=== PATIENT | female | born 1995 | race Caucasian/White ===

== ENCOUNTER → 2018-04-24 18:36 | Outpatient (CLI) | payer MEDICAID, SELFPAY ==
[2018-04-24 23:02] LABS: Chlamydia Trachomatis by PCR Negative (Negative); Neisserai gonorrhoeae by PCR Negative (Negative); Probe Check PASS; Sample Adequacy Control PASS; Specimen Processing Control PASS
== END ==
PROVIDERS: Family Provider Family Medicine; PCP Family Medicine; Visit Provider Obstetrics & Gynecology
DX: Z11.3 Encounter for screening for infections with a predominantly sexual mode of transmission (principal)
CPT/HCPCS: 87491; 87591

== ENCOUNTER → 2018-04-27 10:56 | Outpatient (CLI) | payer MEDICAID, SELFPAY ==
[2018-04-27 14:51] LABS: Absolute Lymphocyte Count 2.08 X10^3/ul (0.83-4.51); Absolute Neutrophil Count 4.2 X10^3/uL (2.0-7.7); Basophil# 0.02 X10^3/uL; Basophil% 0.3 % (0-1); Eosinophil# 0.12 X10^3/uL; Eosinophils% 1.8 % (0-5); Hematocrit 42.4 % (37-47); Hemoglobin 14.1 g/dl (12.0-15.0); Lymphocyte # 2.08 X10^3/ul (4.0); Lymphocyte % 31.2 % (19-41); Mean Corp Hgb Conc 33.3 g/gl (32-36); Mean Corpuscular Hgb 30.9 pg (27.0-32.0); Mean Corpuscular Volume 92.8 fL (81-99); Mean Platelet Vol. 9.9 fl (6.2-12.0); Monocyte# 0.26 X10^3/uL; Monocyte% 3.9 % (0-10); Neutrophil # 4.19 X10^3/uL (2.7-7.7); Neutrophil % 62.8 % (47-70); Platelet Count 287 K/mm3 (150-450); RBC Distribution Width CV 12.6 % (11.6-14.6); RBC Distribution Width SD 42.4 fl (35.1-43.9); Red Blood Count 4.57 M/mm3 (4.2-5.4); White Blood Count 6.7 K/mm3 (4.4-11.0)
[2018-04-27 14:56] LABS: POSITIVE COUNT NO; POSITIVE DIFFERENTIAL NO; POSITIVE MORPHOLOGY NO
[2018-04-27 15:32] LABS: ALB/GLOB Ratio 1.3 RATIO (0.9-2.4); AST(SGOT) 22 U/L (15-37); Alanine Aminotransfer ALT/SGPT 32 U/L (13-56); Albumin, Serum 4.5 g/dL (3.2-5.0); Alkaline Phosphatase 59 U/L (45-117); Anion Gap 6 (5-15); BUN 9 mg/dL (7-18); BUN/Creat Ratio 12.6 RATIO (10-20); Calcium,Total 9.1 mg/dL (8.5-10.1); Chloride 108 mmol/L (98-107); Creatinine, Serum 0.71 mg/dL (0.55-1.02); EST Glomerular Filtration Rate 110 mL/min (>60); Est Glom Filt Rate - Afr Amer 133 mL/min (>60); Globulin 3.5 g/dL (2.2-4.2); Glucose 69 mg/dL (74-106); Lipase 303 U/L (73-393); Sodium Level 139 mmol/L (136-145); Thyroid Stim Hormone (TSH) 1.12 uIU/mL (0.358-3.74)
== END ==
PROVIDERS: Family Provider Family Medicine; PCP Family Medicine; Visit Provider Family Medicine
DX: R10.13 Epigastric pain (principal)
CPT/HCPCS: 36415; 80053; 83690; 84443; 85025

== ENCOUNTER 2018-05-24 07:16 | Day surgery (SDC) | payer MEDICAID, SELFPAY ==
[2018-05-21 10:55] LABS: Hematocrit 42.4 % (37-47); Mean Corpuscular Hgb 30.3 pg (27.0-32.0); Mean Corpuscular Volume 91.8 fL (81-99); Mean Platelet Vol. 9.6 fl (6.2-12.0); Platelet Count 287 K/mm3 (150-450); RBC Distribution Width CV 12.4 % (11.6-14.6); RBC Distribution Width SD 41.8 fl (35.1-43.9); Red Blood Count 4.62 M/mm3 (4.2-5.4); White Blood Count 5.4 K/mm3 (4.4-11.0)
[2018-05-21 10:57] LABS: Scan Indicated on CBC? Y/N NO
[2018-05-21 11:10] LABS: International Normalized Ratio 1.1; Partial Thromboplast Time 28.5 Seconds (24.1-36.2); Prothrombin Time (Protime)PT. 13.8 SECONDS (11.7-14.9)
--- NOTE | 2018-05-24 | MISC_PTH ---
PATIENT: NASIR WILKERSON [place] [facility] [place][id number] AGE/SX: 22/F ROOM: RE05/24/[address]: Dr. Sinai Marte MD : 1995 BED: DIS: 05/24/2018 SPEC #: [id number] RECD: 05/24/18 14:17 STATUS: MASHA REJovon #: [id number] DIANNE: 05/24/18 00:[address]: Sinai Martinez DEPT: SURGICAL PATHOLOGY RECD BY: Dayron Peck ENTERED: 05/24/18 14:18 SP TYPE: MISC OTHR DR: Dr. Jamaal Duarte MD Tissues: A - Peritoneal cavity, NOS B - Peritoneal cavity, NOS Procedures: Surgery Specimen Level IV HEADER OPERATION: Diagnostic laparoscopy, endometriosis resection PRE-OP DIAGNOSIS: Dysmenorrhea and dyspareunia TISSUE SUBMITTED: A ? Right posterior cul-de-sac peritoneum, B ? Right ovarian fossa peritoneum biopsy MICROSCOPIC DIAGNOSIS A. Peritoneum, right posterior cul-de-sac, biopsy: Fibrofatty tissue with focal mild chronic inflammation. B. Peritoneum, right ovarian fossa, biopsy: Focal changes consistent with endometriosis. AM:panchito 05/25/18 MICROSCOPIC DESCRIPTION Slides are reviewed. GROSS DESCRIPTION A - Received in fixative is one container labeled with the patient's name and designated posterior cul-de-sac peritoneum. The specimen consists of an irregular piece of webb-yellow soft tissue measuring 1.5 x 0.5 x 0.2 cm. The entire specimen is submitted in one cassette. B - Received in fixative is one container labeled with the patient's name and designated right ovarian fossa peritoneum biopsy. The specimen consists of a piece of webb-pink soft tissue measuring 1.5 x 0.5 x 0.1 cm. The entire specimen is submitted in one cassette. / SJ:panchito 05/24/18 TC:5 CPT: 52768 x2
[2018-05-24 07:42] LABS: Internal QC Validated? YES +Cl - CLEAR BKGD; Pregnancy, Urine Negative Negative
[2018-05-24 08:08] VITALS: BP 101/67; PULSE 66; RESP 16; TEMP 37.3; O2SAT 100; BMI 18.5
[2018-05-24] MEDS: Bupivacaine Mpf 0.5% 30 ML VIAL (09:43)
--- NOTE | 2018-05-24 09:46 | PCM.OPRPT ---
Problem List (1) Chronic pelvic pain in female Status: Acute (2) Endometriosis Status: Acute Comment: PELVIC PERITONEUM Report of Operation Date of Procedure: 05/24/18 Pre-Operative Diagnosis: Chronic pelvic pain Post-Operative Diagnosis: Chronic pelvic pain, Endometriosis Surgery/Procedure Performed:: Diagnostic laparoscopy, Endometriosis resection Description of Surgical Findings:: Peritoneal endometriosis of right posterior culdesac and right ovarian fossa/posterior broad ligament pediatric physician: Kathy Celestin Type of Anesthesia:: General, Local Anesthesiologist: Jamaal Alvarado Specimen's removed: 1. right posterior culdesac peritoneum. 2. right ovarian fossa peritoneum Estimated Blood Loss (mL): 5 Fluids Replaced: 1200 ml Description of Procedure: Indications: Lashell is a 22-year-old 1 para 0010 who presents for scheduled diagnostic laparoscopy and peritoneal biopsy is indicated to rule out endometriosis. She has a several year history of pelvic pain that has been refractory to oral contraceptive pills as well as Depo-Provera. She is already had a urologic evaluation. Risks, benefits, indications and alternatives of the procedure were reviewed. The patient desired to proceed. Procedure: The patient was taken to the operating room and signed and was performed. She is placed in the dorsal supine position and induced under general anesthesia and intubated. Her arms were tucked at her sides. She is then placed into dorsal lithotomy and examination under anesthesia performed which was unremarkable. The abdomen and perineum were prepped and draped in sterile fashion. Straight catheterization of the bladder was performed. Timeout was performed. The patient was placed into high lithotomy weighted speculum was placed in the vagina and cervix visualized and grasped using an single-tooth tenaculum at the anterior lip. The uterus sounded to 6 cm and a HUMI uterine manipulator was placed and secured. The tenaculum was removed from the cervix along with the speculum. The patient was placed into low lithotomy attention turned to the abdomen. An inferior umbilical incision was made using a scalpel and the Veress needle was placed however very entry into the abdomen was unsuccessful as they had no successful hanging drop thus I proceeded with laparoscopic injury by the trocar. Abdominal entry pressures were 0 mmHg. The abdomen was insufflated to 12 mmHg. The patient was placed into Trendelenburg. A second incision was made suprapubically and trocar placed. The abdomen and pelvis were inspected demonstrating posterior cul-de-sac peritoneal erosion and ovarian fossae implants concerning for endometriosis. Anatomically the uterus, ovaries and tubes were normal-appearing. The left infundibulopelvic ligament was somewhat vascularly engorged.A third and fourth incisions were made and 5 mm ports were placed under transillumination in the right and left lower quadrants, respectively. The posterior cul-de-sac was drained of fluid to get adequate visualization of the cul-de-sac lesion. The cul-de-sac peritoneum was grasped and sharply dissected using laparoscopic queenie. Monopolar energy was briefly used for final resection of the peritoneum from the more vascular underlying fibroadipose tissue. In similar fashion the ovarian fossae peritoneum was sharply incised, dissected from the underlying tissue and resected. Both resection sites were hemostatic. The procedure was complete. The patient was placed in the dorsal lithotomy and the abdomen desufflated. The skin was closed using 4-0 Monocryl. Steri-Strips and OpSite dressing were placed over the incisions. A total of 10 cc of half percent bupivacaine was injected locally. Attention was turned vaginally and the HUMI uterine manipulator was removed. The patient was awakened, extubated and transferred to the recovery room without complication. Sponge and needle counts were correct ?2. - Complications None - Admit VTE Documentation VTE Present on Admission: No VTE Mechan Device Prophylaxis: SCD's VTE Pharm Prophylaxis ordered?: No
--- NOTE | 2018-05-24 10:05 | PCM.DC ---
- Discharge Diagnoses Current Active Problems: Current Active and Chronic Problems Chronic pelvic pain in female (Acute) Endometriosis (Acute) PELVIC PERITONEUM Reason(s) for Visit for Discharge Instructions: Diagnostic laparoscopy You will use the following diet at home:: No restrictions Your food should be the consistency of: Regular Discharge Activity: Return to Normal Activity, May not drive while taking narcotic pain medications., May Shower, - - No driving for 3-7 days May resume sexual activity in: 4 weeks Lifting Restrictions: 10 lb Call your doctor if your incision/area has: Continuous Slow Oozing, Sudden Increased Bleeding, Increased Pain/ Swelling, Increased Redness Call your doctor if you observe: Fever of 101 or Higher, Inability to urinate, Inability to have a bowel movement, Using more than one pad per hour, Shortness of breath, Chest pain, Calf discomfort, Uncontrolled pain Suture Line Care: Avoid Pulling/Pushing Remove Dressing in (days):: 1 - Remove outer dressing on Monday morning, remove tape strips on Monday Cleanse incision/area with: Soap & Water Instructions: Stages of Endometriosis Allergies/Adverse Reactions: Allergies No Known Allergies Allergy (Verified 05/21/18 12:33) Medications to take at Discharge Ondansetron [Zofran Odt] 4 mg PO Q8H PRN PRN #10 tablet 04/24/17 MedroxyPROGESTERone [Depo-Provera] 150 mg IM .[id number] 05/21/18 Docusate Sodium [Colace] 100 mg PO BID PRN PRN #60 cap 05/24/18 Ibuprofen 600 mg PO TID PRN #30 tab 05/24/18 Oxycodone [Oxyir] 5 mg PO Q4H PRN PRN 3 Days #18 tablet 05/24/18 The following prescriptions were given: Oxycodone [Oxyir] 5 mg PO Q4H PRN PRN 3 Days #18 tablet PRN Reason: Severe Pain (6-10/10) Docusate Sodium [Colace] 100 mg PO BID PRN PRN #60 cap PRN Reason: Constipation Ibuprofen 600 mg PO TID PRN #30 tab PRN Reason: Pain Primary Care Physician: Jamaal Duarte MD [Primary Care Provider] - Test Results: Test results from this visit will be discussed in further detail at your follow-up appointment, if applicable. Please Follow Up With: Sinai Bishop MD When: 2-4 weeks
[2018-05-24 10:09] VITALS: BP 101/67; BP 131/97; PULSE 84; RESP 18; TEMP 36.8; O2SAT 100
[2018-05-24 10:15] VITALS: BP 101/67; BP 108/67; PULSE 67; RESP 18; O2SAT 100
[2018-05-24 10:28] VITALS: BP 101/67; BP 106/67; PULSE 69; RESP 18; TEMP 36.8; O2SAT 99
[2018-05-24] MEDS: HYDROcodone Bitartrate/Apap 5/325 Tablet PO (10:47)
[2018-05-24 10:55] VITALS: BP 101/67
--- NOTE | 2018-05-24 11:09 | PCM.DC ---
- Discharge Diagnoses Current Active Problems: Current Active and Chronic Problems Chronic pelvic pain in female (Acute) Endometriosis (Acute) PELVIC PERITONEUM You will use the following diet at home:: No restrictions Your food should be the consistency of: Regular Discharge Activity: Return to Normal Activity, May not drive while taking narcotic pain medications., May Shower, - - No driving for 3-7 days May resume sexual activity in: 4 weeks Call your doctor if your incision/area has: Continuous Slow Oozing, Sudden Increased Bleeding, Increased Pain/ Swelling, Increased Redness Call your doctor if you observe: Fever of 101 or Higher, Inability to urinate, Inability to have a bowel movement, Using more than one pad per hour, Shortness of breath, Chest pain, Calf discomfort, Uncontrolled pain Suture Line Care: Avoid Pulling/Pushing Remove Dressing in (days):: 1 - Remove outer dressing on Monday morning, remove tape strips on Monday Cleanse incision/area with: Soap & Water Instructions: Stages of Endometriosis Allergies/Adverse Reactions: Allergies No Known Allergies Allergy (Verified 05/21/18 12:33) Medications to take at Discharge Ondansetron [Zofran Odt] 4 mg PO Q8H PRN PRN #10 tablet 04/24/17 MedroxyPROGESTERone [Depo-Provera] 150 mg IM .[id number] 05/21/18 Docusate Sodium [Colace] 100 mg PO BID PRN PRN #60 cap 05/24/18 Ibuprofen 600 mg PO TID PRN #30 tab 05/24/18 Oxycodone [Oxyir] 5 mg PO Q6H PRN PRN 5 Days #18 tablet 05/24/18 The following prescriptions were given: Oxycodone [Oxyir] 5 mg PO Q6H PRN PRN 5 Days #18 tablet PRN Reason: Severe Pain (6-10/10) Docusate Sodium [Colace] 100 mg PO BID PRN PRN #60 cap PRN Reason: Constipation Ibuprofen 600 mg PO TID PRN #30 tab PRN Reason: Pain Primary Care Physician: Jamaal Duarte MD [Primary Care Provider] - Test Results: Test results from this visit will be discussed in further detail at your follow-up appointment, if applicable. Please Follow Up With: Sinai Bishop MD When: 2-4 weeks
--- NOTE | 2018-05-24 11:10 | PCM.PN.BLA ---
Progress Note Call received from Ja pharmacist indicating patient's insurance will only cover Oxycodone 5mg q6h - verbal alteration given - Oxycodone 5mg q6h prn severe pain, #18. Discharge instructions updated.
== END 2018-05-24 11:37 | disposition home or self-care (01) ==
LOC: SDC 07:17 → AC 07:17
PROVIDERS: Anesthesiology; Family Provider Family Medicine; PCP Family Medicine; Visit Provider Obstetrics & Gynecology
PROC: (CPT 49320; principal; 2018-05-24 08:25)
DX: N80.3 Endometriosis of pelvic peritoneum (principal); N94.6 Dysmenorrhea, unspecified; N94.10 Unspecified dyspareunia; R10.2 Pelvic and perineal pain; G89.29 Other chronic pain; K58.9 Irritable bowel syndrome, unspecified; F17.290 Nicotine dependence, other tobacco product, uncomplicated; Z79.899 Other long term (current) drug therapy
CPT/HCPCS: 58662; 36415; 81025; 85027; 85610; 85730; 86850; 86900; 88305; J7120; J2405

== ENCOUNTER → 2018-05-28 12:54 | Outpatient (CLI) | payer MEDICAID, SELFPAY ==
[2018-05-28 13:10] VITALS: BP 102/68; PULSE 74; RESP 18; TEMP 37.3; O2SAT 97; BMI 18.8
[2018-05-28] MEDS: Ceftriaxone 1 GM/50 mL Premix x1 IV (13:19)
[2018-05-28 14:00] VITALS: BP 104/54; PULSE 96; RESP 16; TEMP 37.4; O2SAT 98
== END ==
PROVIDERS: Family Provider Family Medicine; PCP Family Medicine; Visit Provider Obstetrics & Gynecology
DX: N10 Acute pyelonephritis (principal)
CPT/HCPCS: 96365; 80048; 81001; 85025; 87086; J7050; A4216

== ENCOUNTER → 2018-05-28 13:41 | Outpatient (CLI) | payer MEDICAID, SELFPAY ==
[2018-05-28 13:45] LABS: Bacteria 0 SEEN /hpf (None Seen); Mucous, Urine 0 SEEN /hpf (<or=2+); Red Blood Cells-Urine 0 SEEN /hpf (0-5)
[2018-05-28 13:49] LABS: Color, Urine Straw (Yellow); Glucose, Dipstick Normal (Normal); Ketone-Dipstick Negative (Negative); Leukocyte Esterase-Dipstick 100 /ul (Negative); Nitrite-Dipstick Negative (Negative); Occult Blood-Urine 10 /ul (Negative); Protein-Dipstick Negative (Negative); Specific Gravity, Urine 1.005 (1.002-1.030); Urine Bilirubin Dipstick Negative (Negative); Urine Clarity Clear (Clear); Urine Urobilinogen Normal (Normal)
[2018-05-28 13:54] LABS: Absolute Lymphocyte Count 1.93 X10^3/ul (0.83-4.51); Absolute Neutrophil Count 4.8 X10^3/uL (2.0-7.7); Basophil# 0.02 X10^3/uL; Basophil% 0.3 % (0-1); Eosinophil# 0.16 X10^3/uL; Eosinophils% 2.2 % (0-5); Hematocrit 45.6 % (37-47); Hemoglobin 15.7 g/dl (12.0-15.0); Lymphocyte # 1.93 X10^3/ul (4.0); Lymphocyte % 26.4 % (19-41); Mean Corp Hgb Conc 34.4 g/gl (32-36); Mean Corpuscular Hgb 31.2 pg (27.0-32.0); Mean Corpuscular Volume 90.7 fL (81-99); Mean Platelet Vol. 9.6 fl (6.2-12.0); Monocyte# 0.38 X10^3/uL; Monocyte% 5.2 % (0-10); Neutrophil # 4.81 X10^3/uL (2.7-7.7); Neutrophil % 65.8 % (47-70); Platelet Count 331 K/mm3 (150-450); RBC Distribution Width CV 12.1 % (11.6-14.6); RBC Distribution Width SD 39.7 fl (35.1-43.9); Red Blood Count 5.03 M/mm3 (4.2-5.4); White Blood Count 7.3 K/mm3 (4.4-11.0)
[2018-05-28 13:55] LABS: POSITIVE COUNT NO; POSITIVE DIFFERENTIAL NO; POSITIVE MORPHOLOGY NO
[2018-05-28 13:58] LABS: Squamous Epithelial Cells - UA 0-5 SEEN /hpf (5-10); White Blood Cells 0-5 SEEN /hpf (0-5)
[2018-05-28 13:59] LABS: Anion Gap 9 (5-15); BUN 12 mg/dL (7-18); BUN/Creat Ratio 18.2 RATIO (10-20); Calcium,Total 9.9 mg/dL (8.5-10.1); Chloride 105 mmol/L (98-107); Creatinine, Serum 0.66 mg/dL (0.55-1.02); EST Glomerular Filtration Rate 120 mL/min (>60); Est Glom Filt Rate - Afr Amer 145 mL/min (>60); Glucose 77 mg/dL (74-106); Potassium 4.7 mmol/L (3.5-5.1); Sodium Level 141 mmol/L (136-145)
== END ==
PROVIDERS: Visit Provider Obstetrics & Gynecology
DX: N39.0 Urinary tract infection, site not specified (principal)
CPT/HCPCS: 80048; 81001; 85025; 87086; 87088

== ENCOUNTER → 2018-08-21 08:33 | Outpatient (CLI) | payer MEDICAID, SELFPAY ==
[2018-08-21 10:51] LABS: Absolute Lymphocyte Count 2.05 X10^3/ul (0.83-4.51); Absolute Neutrophil Count 2.5 X10^3/uL (2.0-7.7); Basophil# 0.03 X10^3/uL; Basophil% 0.6 % (0-1); Eosinophil# 0.14 X10^3/uL; Eosinophils% 2.8 % (0-5); Hematocrit 42.2 % (37-47); Hemoglobin 13.9 g/dl (12.0-15.0); Lymphocyte # 2.05 X10^3/ul (4.0); Lymphocyte % 40.8 % (19-41); Mean Corp Hgb Conc 32.9 g/gl (32-36); Mean Corpuscular Hgb 30.9 pg (27.0-32.0); Mean Corpuscular Volume 93.8 fL (81-99); Mean Platelet Vol. 10.1 fl (6.2-12.0); Monocyte# 0.29 X10^3/uL; Monocyte% 5.8 % (0-10); Neutrophil # 2.51 X10^3/uL (2.7-7.7); Platelet Count 249 K/mm3 (150-450); RBC Distribution Width CV 12.5 % (11.6-14.6); RBC Distribution Width SD 42.7 fl (35.1-43.9)
[2018-08-21 10:53] LABS: POSITIVE COUNT NO; POSITIVE DIFFERENTIAL NO; POSITIVE MORPHOLOGY NO
[2018-08-21 11:33] LABS: ALB/GLOB Ratio 1.5 RATIO (0.9-2.4); AST(SGOT) 13 U/L (15-37); Alanine Aminotransfer ALT/SGPT 22 U/L (13-56); Albumin, Serum 4.5 g/dL (3.2-5.0); Alkaline Phosphatase 65 U/L (45-117); Anion Gap 8 (5-15); BUN 10 mg/dL (7-18); BUN/Creat Ratio 14.9 RATIO (10-20); Chloride 108 mmol/L (98-107); Creatinine, Serum 0.67 mg/dL (0.55-1.02); EST Glomerular Filtration Rate 118 mL/min (>60); Est Glom Filt Rate - Afr Amer 143 mL/min (>60); Ferritin 45 ng/mL (8-252); Glucose 74 mg/dL (74-106); Lipase 272 U/L (73-393); Magnesium 2.1 mg/dL (1.6-2.6); Potassium 4.1 mmol/L (3.5-5.1); Protein, Total 7.5 g/dL (6.4-8.2); Sodium Level 140 mmol/L (136-145); Thyroid Stim Hormone (TSH) 1.19 uIU/mL (0.358-3.74)
== END ==
PROVIDERS: Family Provider Family Medicine; PCP Family Medicine; Visit Provider Family Medicine
DX: N94.6 Dysmenorrhea, unspecified (principal); K58.9 Irritable bowel syndrome, unspecified; R00.2 Palpitations
CPT/HCPCS: 36415; 80053; 82728; 83690; 83735; 84443; 85025

== ENCOUNTER → 2018-11-27 15:39 | Outpatient (CLI) | payer MEDICAID, SELFPAY ==
[2018-05-28 13:10] VITALS: BMI 18.8
[2018-11-27 15:42] LABS: Bacteria 0 SEEN /hpf (None Seen); Mucous, Urine 0 SEEN /hpf (<or=2+); Red Blood Cells-Urine 0 SEEN /hpf (0-5); White Blood Cells 0 SEEN /hpf (0-5)
[2018-11-27 17:34] LABS: Color, Urine Yellow (Yellow); Glucose, Dipstick Normal (Normal); Ketone-Dipstick Negative (Negative); Leukocyte Esterase-Dipstick Negative /ul (Negative); Nitrite-Dipstick Negative (Negative); Occult Blood-Urine Negative /ul (Negative); Protein-Dipstick Negative (Negative); Urine Bilirubin Dipstick Negative (Negative); Urine Clarity Clear (Clear); Urine Urobilinogen Normal (Normal)
[2018-11-27 17:48] LABS: Squamous Epithelial Cells - UA 0-5 SEEN /hpf (5-10)
== END ==
PROVIDERS: Visit Provider Obstetrics & Gynecology
DX: N39.0 Urinary tract infection, site not specified (principal)
CPT/HCPCS: 81001

== ENCOUNTER → 2019-04-23 12:42 | Outpatient (CLI) | payer MEDICAID, SELFPAY ==
[2018-05-28 13:10] VITALS: BMI 18.8
--- NOTE | 2019-04-23 12:48 | RAD_ITS ---
STUDY: X-RAY - LUMBAR SPINE REASON FOR EXAM: Female, 23 years old. Low back pain TECHNIQUE: 5 view(s) of the lumbar spine were obtained. COMPARISON: None FINDINGS: Normal lumbar lordosis. There is no substantial scoliosis. There is a normal alignment of the vertebrae. Normal vertebral bodies and endplates. Normal disc space heights. The soft tissue structures are unremarkable. RAD/L/S Spine Min 4 Views IMPRESSION: Normal x-ray examination of the lumbar spine. Electronically Signed: Matt Ngo MD at 14:06 EDT , Service support ,
[2019-04-23 14:07] LABS: Absolute Lymphocyte Count 2.38 X10^3/uL (0.83-4.51); Absolute Neutrophil Count 3.6 X10^3/uL (2.0-7.7); Basophil# 0.05 X10^3/uL; Basophil% 0.8 % (0-1); Eosinophil# 0.12 X10^3/uL; Eosinophils% 1.8 % (0-5); Hematocrit 38.5 % (37-47); Hemoglobin 13.1 g/dL (12.0-15.0); Lymphocyte # 2.38 X10^3/ul (4.0); Lymphocyte % 36.5 % (19-41); Mean Corpuscular Hgb 31.6 pg (27.0-32.0); Mean Corpuscular Volume 92.8 fL (81-99); Mean Platelet Vol. 9.7 fl (6.2-12.0); Monocyte# 0.38 X10^3/uL; Monocyte% 5.8 % (0-10); NRBC Flagged by Analyzer 0 % (0-5); Neutrophil # 3.57 X10^3/uL (2.7-7.7); Neutrophil % 54.8 % (47-70); Platelet Count 270 K/mm3 (150-450); RBC Distribution Width CV 11.9 % (11.6-14.6); RBC Distribution Width SD 41.1 fl (35.1-43.9); Red Blood Count 4.15 M/mm3 (4.2-5.4); White Blood Count 6.5 K/mm3 (4.4-11.0)
[2019-04-23 14:23] LABS: CRP < 2.90 mg/L (0.0-3.0)
[2019-04-26 03:06] LABS: QNTFERON TB Mitogen Value > 10.00 IU/mL (.); QNTFERON TB Nil Value 0.03 IU/mL (.); QNTFERON TB1+ Ag Value 0.02 IU/mL (.); QNTFERON TB2+ Ag Value 0.03 IU/mL (.)
[2019-04-26 11:22] LABS: QNTIFERON TB Positive Criteria Negative (Negative)
== END ==
PROVIDERS: Family Provider Family Medicine; PCP Family Medicine; Referring Provider Family Medicine; Visit Provider Family Medicine
DX: M54.9 Dorsalgia, unspecified (principal); R61 Generalized hyperhidrosis
CPT/HCPCS: 36415; 72110; 85025; 86140; 86480

== ENCOUNTER → 2019-06-07 11:39 | Outpatient (CLI) | payer MEDICAID, SELFPAY ==
[2018-05-28 13:10] VITALS: BMI 18.8
[2019-06-07 14:10] LABS: Absolute Neutrophil Count 3.3 X10^3/uL (2.0-7.7); Basophil# 0.03 X10^3/uL; Basophil% 0.5 % (0-1); Eosinophil# 0.06 X10^3/uL; Eosinophils% 1.1 % (0-5); Hematocrit 40.6 % (37-47); Hemoglobin 13.3 g/dL (12.0-15.0); Mean Corp Hgb Conc 32.8 g/dL (32-36); Mean Corpuscular Hgb 30.5 pg (27.0-32.0); Mean Corpuscular Volume 93.1 fL (81-99); Mean Platelet Vol. 9.8 fl (6.2-12.0); Monocyte% 5.3 % (0-10); NRBC Flagged by Analyzer 0 % (0-5); Neutrophil # 3.31 X10^3/uL (2.7-7.7); Neutrophil % 57.9 % (47-70); Platelet Count 287 K/mm3 (150-450); RBC Distribution Width CV 12.1 % (11.6-14.6); RBC Distribution Width SD 41.6 fl (35.1-43.9); Red Blood Count 4.36 M/mm3 (4.2-5.4); White Blood Count 5.7 K/mm3 (4.4-11.0)
[2019-06-07 14:16] LABS: Erythrocyte Sedimentation Rate < 1 mm/hr (0-20)
[2019-06-07 14:53] LABS: ALB/GLOB Ratio 1.4 RATIO (0.9-2.4); AST(SGOT) 15 U/L (15-37); Alanine Aminotransfer ALT/SGPT 24 U/L (13-56); Albumin, Serum 4.4 g/dL (3.2-5.0); Alkaline Phosphatase 61 U/L (45-117); Anion Gap 8 (5-15); BUN 10 mg/dL (7-18); CRP < 2.90 mg/L (0.0-3.0); Calcium,Total 8.9 mg/dL (8.5-10.1); Chloride 112 mmol/L (98-107); Creatinine, Serum 0.83 mg/dL (0.55-1.02); EST Glomerular Filtration Rate 91 mL/min (>60); Est Glom Filt Rate - Afr Amer 110 mL/min (>60); Globulin 3.2 g/dL (2.2-4.2); Glucose 68 mg/dL (74-106); Lipase 335 U/L (73-393); Potassium 3.7 mmol/L (3.5-5.1); Protein, Total 7.6 g/dL (6.4-8.2); Sodium Level 146 mmol/L (136-145)
== END ==
PROVIDERS: Family Provider Family Medicine; PCP Family Medicine; Visit Provider Family Medicine
DX: R10.84 Generalized abdominal pain (principal); N32.89 Other specified disorders of bladder
CPT/HCPCS: 36415; 80053; 83690; 85025; 85652; 86140; 87086

== ENCOUNTER 2019-07-09 09:19 | Day surgery (SDC) | payer MEDICAID, SELFPAY ==
[2019-07-09 09:43] LABS: Internal QC Validated? YES +Cl - CLEAR BKGD
[2019-07-09 09:47] VITALS: BP 114/76; PULSE 70; RESP 16; TEMP 36.1; O2SAT 100; BMI 19.0
[2019-07-09 09:47] LABS: Pregnancy, Urine Negative Negative
[2019-07-09] MEDS: Lactated Ringers 1,000 ML 100 ML IV (10:10)
[2019-07-09] MEDS: Cefazolin 2 GM in 0.9% Normal Saline 100 ML IV (10:35)
--- NOTE | 2019-07-09 10:39 | DCINST_ITS ---
Discharge Diet: No Restrictions Discharge Activity: May not drive while taking narcotic pain medications., May Shower May resume sexual activity in: 2 weeks Call your doctor if you observe: Fever of 101 or Higher, Inability to urinate, Inability to have a bowel movement, Shortness of breath, Chest pain, Calf discomfort, Uncontrolled pain Allergies/Adverse Reactions: Allergies No Known Allergies Allergy (Verified 07/09/19 09:46) Medications to take at Discharge MedroxyPROGESTERone [Depo-Provera] 150 mg IM .[id number] 05/21/18 Primary Care Physician: Jamaal Duarte MD [Primary Care Provider] - Test Results: Test results from this visit will be discussed in further detail at your follow- up appointment, if applicable. Please Follow Up With: Lorenza Kirby MD When: call office for appt in 2-3 weeks Proposed Discharge Date: 07/09/19
--- NOTE | 2019-07-09 10:40 | OP.PCM_ITS ---
Problem List (1) Urinary urgency Status: Acute (2) Urinary frequency Status: Acute (3) Urinary incontinence, urge Status: Acute (4) Interstitial cystitis Status: Chronic (5) Chronic pelvic pain in female Status: Acute Report of Operation Date of Procedure: 07/09/19 Pre-Operative Diagnosis: Chronic pelvic pain, interstitial cystitis, urinary urgency, urinary frequency, urinary urge incontinence Post-Operative Diagnosis: Same Surgery/Procedure Performed:: Cystoscopy, hydrodistention, pelvic exam under anesthesia Description of Surgical Findings:: Capacity 350 cc, positive for glomerulations and terminal hematuria following distention. No ulcerations. Type of Anesthesia:: General Description of Procedure: The patient is a 23-year-old female with a story concerning for interstitial cystitis who presents today for cystoscopy under anesthesia for diagnostic and therapeutic purposes. All risk benefits and alternatives were discussed and informed consent was obtained. Patient was taken to the operating room and placed on the operating room table. Anesthesia monitored the head, neck, airway, IV access and vital signs throughout the case. Once anesthesia is a probably administered the patient was placed into dorsal lithotomy position was prepped and draped in usual sterile fashion. A cystourethroscopy and pelvic examination were performed. There is n o pelvic abnormality identified aside from some tight levator musculature bilaterally. On cystoscopy, the anatomy is normal with bilateral ureteral orifices in correct anatomic position on the area of the trigone. There are no ulcerations or bladder masses identified. The bladder was filled to capacity and allowed to sit for 2 minutes. Capacity was determined by the patient leaking around the cystoscope. This was measured to be 350 cc. Upon reentry into the urinary bladder there were multiple glomerulations and bleeding from the bladder lining. The bladder was once again filled to capacity and allowed to sit for 2 minutes. The bladder was then emptied and the case was terminated. The capacity was measured at 375 cc. There were no complications during the procedure. She was awakened and taken to the recovery room in good condition. Grafts/Implants Used: none - Complications none - Admit VTE Documentation VTE Present on Admission: Yes VTE Mechan Device Prophylaxis: SCD's VTE Pharm Prophylaxis ordered?: No Reason prophylaxis not ordered:: Treatment Not Indicated
[2019-07-09 11:20] VITALS: BP 114/69; BP 114/76; PULSE 75; RESP 16; TEMP 36.4; O2SAT 100
[2019-07-09 11:30] VITALS: BP 112/73; BP 114/76; PULSE 80; RESP 16; O2SAT 99
[2019-07-09 11:40] VITALS: BP 114/71; BP 114/76; PULSE 63; RESP 16; O2SAT 100
[2019-07-09 11:48] VITALS: BP 112/70; BP 114/76; PULSE 64; RESP 16; TEMP 36.7; O2SAT 100
[2019-07-09 12:14] VITALS: BP 114/76; BP 115/78; PULSE 63; RESP 18; TEMP 36.7; O2SAT 100
== END 2019-07-09 12:23 | disposition home or self-care (01) ==
LOC: SDC 09:20 → AC 09:21
PROVIDERS: Anesthesiology; Family Provider Family Medicine; PCP Family Medicine; Referring Provider Urology; Visit Provider Urology
PROC: 0T7B7ZZ Dilation of Bladder, Via Natural or Artificial Opening (ICD-10-PCS; CPT 52260; principal; 2019-07-09 10:50)
DX: N30.10 Interstitial cystitis (chronic) without hematuria (principal); N39.41 Urge incontinence; R35.1 Nocturia; R35.0 Frequency of micturition; N94.19 Other specified dyspareunia; R10.2 Pelvic and perineal pain; G89.29 Other chronic pain; K58.9 Irritable bowel syndrome, unspecified; F17.200 Nicotine dependence, unspecified, uncomplicated; Z79.899 Other long term (current) drug therapy
CPT/HCPCS: 52260; 81025; J7120; J2405

== ENCOUNTER → 2020-04-21 | Outpatient (CLI) | payer MEDICAID, SELFPAY ==
[2020-04-21 17:29] LABS: Bacteria 0 SEEN /hpf (None Seen); Mucous, Urine 0 SEEN /hpf (<or=2+); Red Blood Cells-Urine 0 SEEN /hpf (0-5); White Blood Cells 0 SEEN /hpf (0-5)
[2020-04-21 17:41] LABS: Color, Urine Straw (Yellow); Glucose, Dipstick Normal (Normal); Ketone-Dipstick Negative (Negative); Leukocyte Esterase-Dipstick Negative /ul (Negative); Nitrite-Dipstick Negative (Negative); Occult Blood-Urine Negative /ul (Negative); Protein-Dipstick Negative (Negative); Urine Bilirubin Dipstick Negative (Negative); Urine Clarity Clear (Clear); Urine Urobilinogen Normal (Normal)
[2020-04-21 17:51] LABS: Squamous Epithelial Cells - UA 0-5 SEEN /hpf (5-10)
== END | disposition home or self-care (01) ==
PROVIDERS: PCP Family Medicine; Referring Provider Family Medicine; Visit Provider Family Medicine
DX: N39.0 Urinary tract infection, site not specified (principal)
CPT/HCPCS: 81001; 87086

== ENCOUNTER → 2020-05-13 13:26 | Outpatient (CLI) | payer MEDICAID, SELFPAY | PROVIDERS: PCP Family Medicine; Visit Provider Obstetrics & Gynecology | DX: Z12.4 Encounter for screening for malignant neoplasm of cervix (principal); Z11.3 Encounter for screening for infections with a predominantly sexual mode of transmission ==

== ENCOUNTER → 2020-05-19 13:39 | Outpatient (CLI) | payer MEDICAID, SELFPAY ==
[2020-05-19 15:23] LABS: Absolute Lymphocyte Count 2.47 X10^3/uL (0.83-4.51); Absolute Neutrophil Count 4.4 X10^3/uL (2.0-7.7); Basophil# 0.04 X10^3/uL; Basophil% 0.5 % (0-1); Eosinophil# 0.09 X10^3/uL; Eosinophils% 1.2 % (0-5); Hematocrit 42.1 % (37-47); Hemoglobin 13.9 g/dL (12.0-15.0); Lymphocyte # 2.47 X10^3/ul (4.0); Lymphocyte % 33.4 % (19-41); Mean Corpuscular Hgb 31.3 pg (27.0-32.0); Mean Corpuscular Volume 94.8 fL (81-99); Mean Platelet Vol. 9.4 fl (6.2-12.0); Monocyte% 5.4 % (0-10); NRBC Flagged by Analyzer 0 % (0-5); Neutrophil # 4.37 X10^3/uL (2.7-7.7); Neutrophil % 59.1 % (47-70); Platelet Count 316 K/mm3 (150-450); RBC Distribution Width CV 12.1 % (11.6-14.6); RBC Distribution Width SD 42.2 fl (35.1-43.9); Red Blood Count 4.44 M/mm3 (4.2-5.4); White Blood Count 7.4 K/mm3 (4.4-11.0)
[2020-05-19 16:45] LABS: ALB/GLOB Ratio 1.4 RATIO (0.9-2.4); AST(SGOT) 25 U/L (15-37); Alanine Aminotransfer ALT/SGPT 33 U/L (13-56); Albumin, Serum 4.5 g/dL (3.2-5.0); Alkaline Phosphatase 53 U/L (45-117); Anion Gap 6 (5-15); BUN 10 mg/dL (7-18); BUN/Creat Ratio 15.5 RATIO (10-20); Calcium,Total 9.2 mg/dL (8.5-10.1); Chloride 105 mmol/L (98-107); Creatinine, Serum 0.64 mg/dL (0.55-1.02); EST Glomerular Filtration Rate 121 mL/min (>60); Est Glom Filt Rate - Afr Amer 147 mL/min (>60); Globulin 3.3 g/dL (2.2-4.2); Glucose 59 mg/dL (74-106); Magnesium 2.4 mg/dL (1.6-2.6); Potassium 3.9 mmol/L (3.5-5.1); Protein, Total 7.8 g/dL (6.4-8.2); Sodium Level 138 mmol/L (136-145); Thyroid Stim Hormone (TSH) 1.66 uIU/mL (0.358-3.74)
== END ==
PROVIDERS: PCP Family Medicine; Referring Provider Family Medicine; Visit Provider Family Medicine
DX: R00.2 Palpitations (principal)
CPT/HCPCS: 36415; 80053; 83735; 84443; 85025

== ENCOUNTER → 2020-06-12 11:39 | Outpatient (CLI) | payer MEDICAID, SELFPAY ==
[2020-06-12 15:14] LABS: Absolute Lymphocyte Count 2.09 X10^3/uL (0.83-4.51); Absolute Neutrophil Count 3.7 X10^3/uL (2.0-7.7); Basophil# 0.04 X10^3/uL; Basophil% 0.6 % (0-1); Eosinophil# 0.08 X10^3/uL; Eosinophils% 1.3 % (0-5); Hematocrit 42.9 % (37-47); Lymphocyte # 2.09 X10^3/ul (4.0); Lymphocyte % 33.2 % (19-41); Mean Corp Hgb Conc 32.6 g/dL (32-36); Mean Corpuscular Hgb 31.5 pg (27.0-32.0); Mean Corpuscular Volume 96.6 fL (81-99); Mean Platelet Vol. 9.6 fl (6.2-12.0); Monocyte# 0.34 X10^3/uL; Monocyte% 5.4 % (0-10); NRBC Flagged by Analyzer 0 % (0-5); Neutrophil # 3.72 X10^3/uL (2.7-7.7); Neutrophil % 59.2 % (47-70); Platelet Count 330 K/mm3 (150-450); RBC Distribution Width CV 12.3 % (11.6-14.6); RBC Distribution Width SD 43.5 fl (35.1-43.9); Red Blood Count 4.44 M/mm3 (4.2-5.4); White Blood Count 6.3 K/mm3 (4.4-11.0)
[2020-06-12 15:35] LABS: Vitamin B12 658 pg/mL (211-911); Vitamin D,25 Hydroxy 41.8 ng/mL
[2020-06-12 16:07] LABS: CRP < 2.90 mg/L (0.0-3.0); Ferritin 49 ng/mL (8-252); Iron 145 ug/dL (50-170); Iron Binding Capacity,Total 412 ug/dL (250-450); Magnesium 2.5 mg/dL (1.6-2.6); T4 Free Direct 1.27 ng/dL (0.76-1.46); Thyroid Stim Hormone (TSH) 1.29 uIU/mL (0.358-3.74)
[2020-06-12 18:30] LABS: PTHIN 15.2 pg/mL (18.4-80.1)
[2020-06-15 16:24] LABS: ANTINUCLEAR ANTIBODIES DIRECT Negative (Negative)
[2020-06-17 04:07] LABS: Endomysial Antibody IgA Negative (Negative); Immunoglobulin A 104 mg/dL (87-352); PROEL- A/G Ratio 1.3 (0.7-1.7); PROEL- Albumin 4.2 g/dL (2.9-4.4); PROEL- Alpha-1 Globulin 0.2 g/dL (0.0-0.4); PROEL- Alpha-2 Globulin 0.9 g/dL (0.4-1.0); PROEL- Beta Globulin 0.9 g/dL (0.7-1.3); PROEL- Gamma Globulin 1.1 g/dL (0.4-1.8); PROEL- Globulin, Total 3.2 g/dL (2.2-3.9); PROEL- TOTAL PROTEIN 7.4 g/dL (6.0-8.5)
[2020-06-17 05:35] LABS: Deamidated Gliadin IgA 3 units (0-19); Deamidated Gliadin IgG 3 units (0-19); Immunoglobulin E 68 IU/mL (6-495); t-Transglutaminase IgA 4 U/mL (0-3)
[2020-06-18 04:32] LABS: Rapid Plasmin Reagin (RPR) NONREACTIVE (NONREACTIVE)
== END ==
PROVIDERS: PCP Family Medicine; Referring Provider Family Medicine; Visit Provider Family Medicine
DX: R20.2 Paresthesia of skin (principal); R19.7 Diarrhea, unspecified; M25.50 Pain in unspecified joint; L29.9 Pruritus, unspecified
CPT/HCPCS: 36415; 82306; 82607; 82728; 82746; 82784; 82785; 83516; 83540; 83550; 83735; 83970; 84165; 84439; 84443; 85025; 86038; 86140; 86255; 86592

== ENCOUNTER → 2020-09-28 16:10 | Outpatient (CLI) | payer MEDICAID, SELFPAY ==
[2020-09-28 17:41] LABS: Absolute Lymphocyte Count 2.72 X10^3/uL (0.83-4.51); Absolute Neutrophil Count 3.3 X10^3/uL (2.0-7.7); Basophil# 0.02 X10^3/uL; Basophil% 0.3 % (0-1); Eosinophil# 0.06 X10^3/uL; Eosinophils% 0.9 % (0-5); Hematocrit 39.6 % (37-47); Hemoglobin 12.9 g/dL (12.0-15.0); Lymphocyte # 2.72 X10^3/ul (4.0); Lymphocyte % 42.2 % (19-41); Mean Corp Hgb Conc 32.6 g/dL (32-36); Mean Corpuscular Hgb 30.6 pg (27.0-32.0); Mean Corpuscular Volume 94.1 fL (81-99); Mean Platelet Vol. 9.8 fl (6.2-12.0); Monocyte# 0.36 X10^3/uL; Monocyte% 5.6 % (0-10); NRBC Flagged by Analyzer 0 % (0-5); Neutrophil # 3.26 X10^3/uL (2.7-7.7); Neutrophil % 50.7 % (47-70); Platelet Count 325 K/mm3 (150-450); RBC Distribution Width CV 12.3 % (11.6-14.6); Red Blood Count 4.21 M/mm3 (4.2-5.4); White Blood Count 6.4 K/mm3 (4.4-11.0)
[2020-09-28 18:08] LABS: ALB/GLOB Ratio 1.3 RATIO (0.9-2.4); AST(SGOT) 18 U/L (15-37); Alanine Aminotransfer ALT/SGPT 27 U/L (13-56); Albumin, Serum 4.4 g/dL (3.2-5.0); Alkaline Phosphatase 61 U/L (45-117); Anion Gap 6 (5-15); BUN 6 mg/dL (7-18); BUN/Creat Ratio 7.9 RATIO (10-20); Calcium,Total 9.1 mg/dL (8.5-10.1); Chloride 107 mmol/L (98-107); Creatinine, Serum 0.76 mg/dL (0.55-1.02); EST Glomerular Filtration Rate 101 mL/min (>60); Est Glom Filt Rate - Afr Amer 122 mL/min (>60); Globulin 3.3 g/dL (2.2-4.2); Glucose 103 mg/dL (74-106); Lipase 306 U/L (73-393); Potassium 3.5 mmol/L (3.5-5.1); Protein, Total 7.7 g/dL (6.4-8.2); Sodium Level 140 mmol/L (136-145)
[2020-09-30 20:08] LABS: Endomysial Antibody IgA Negative (Negative); Immunoglobulin A 100 mg/dL (87-352)
[2020-09-30 21:11] LABS: HSV 1 IgG < 0.91 index (0.00-0.90); HSV 2 IgG < 0.91 index (0.00-0.90); t-Transglutaminase IgA <2 U/mL (0-3)
== END ==
PROVIDERS: PCP Family Medicine; Visit Provider Family Medicine
DX: L73.9 Follicular disorder, unspecified (principal); R76.8 Other specified abnormal immunological findings in serum; R10.13 Epigastric pain
CPT/HCPCS: 36415; 80053; 82784; 83516; 83690; 85025; 86255; 86695; 86696

== ENCOUNTER → 2020-10-16 | Outpatient (CLI) | payer MEDICAID, SELFPAY | END | disposition home or self-care (01) | LOC: LABSPEC 15:07 | PROVIDERS: PCP Family Medicine; Referring Provider Family Medicine; Visit Provider Family Medicine | DX: L73.9 Follicular disorder, unspecified (principal) | CPT/HCPCS: 87070; 87077; 87205 ==

== ENCOUNTER → 2020-11-24 11:34 | Outpatient (CLI) | payer MEDICAID, SELFPAY ==
[2020-11-24 15:26] LABS: Erythrocyte Sedimentation Rate 2 mm/hr (0-30)
[2020-11-24 16:32] LABS: CRP < 2.90 mg/L (0.0-3.0); Lipase 229 U/L (73-393); Thyroid Stim Hormone (TSH) 1.85 uIU/mL (0.358-3.74)
[2020-11-26 15:45] LABS: ANTINUCLEAR ANTIBODIES DIRECT Negative (Negative)
[2020-11-29 03:06] LABS: QNTFERON TB Mitogen Value > 10.00 IU/mL (.); QNTFERON TB Nil Value 0.08 IU/mL (.); QNTFERON TB2+ Ag Value 0.14 IU/mL (.)
[2020-11-29 07:59] LABS: Complement CH50 > 60 U/mL (>41); QNTIFERON TB Positive Criteria Negative (Negative)
== END ==
PROVIDERS: PCP Family Medicine; Referring Provider Family Medicine; Visit Provider Family Medicine
DX: R61 Generalized hyperhidrosis (principal); R10.13 Epigastric pain
CPT/HCPCS: 36415; 83690; 84443; 85652; 86038; 86140; 86162; 86480

== ENCOUNTER → 2021-02-01 14:51 | Outpatient (CLI) | payer MEDICAID, SELFPAY ==
[2021-02-01 17:34] LABS: Absolute Lymphocyte Count 2.94 X10^3/uL (0.83-4.51); Absolute Neutrophil Count 4.8 X10^3/uL (2.0-7.7); Basophil# 0.04 X10^3/uL; Basophil% 0.5 % (0-1); Eosinophil# 0.12 X10^3/uL; Eosinophils% 1.4 % (0-5); Hematocrit 40.7 % (37-47); Lymphocyte # 2.94 X10^3/ul (0.83-4.51); Lymphocyte % 35.5 % (19-41); Mean Corp Hgb Conc 31.9 g/dL (32-36); Mean Corpuscular Volume 93.8 fL (81-99); Mean Platelet Vol. 9.5 fl (6.2-12.0); Monocyte# 0.41 X10^3/uL; NRBC Flagged by Analyzer 0 % (0-5); Neutrophil # 4.76 X10^3/uL (2.7-7.7); Neutrophil % 57.5 % (47-70); Platelet Count 323 K/mm3 (150-450); RBC Distribution Width CV 12.7 % (11.6-14.6); RBC Distribution Width SD 43.9 fl (35.1-43.9); Red Blood Count 4.34 M/mm3 (4.2-5.4); White Blood Count 8.3 K/mm3 (4.4-11.0)
[2021-02-01 18:04] LABS: ALB/GLOB Ratio 1.2 RATIO (0.9-2.4); AST(SGOT) 23 U/L (15-37); Alanine Aminotransfer ALT/SGPT 24 U/L (13-56); Albumin, Serum 4.1 g/dL (3.2-5.0); Alkaline Phosphatase 63 U/L (45-117); Amylase 101 U/L (25-115); Anion Gap 9 (5-15); BUN 15 mg/dL (7-18); BUN/Creat Ratio 20.1 RATIO (10-20); CRP < 2.90 mg/L (0.0-3.0); Calcium,Total 9.1 mg/dL (8.5-10.1); Chloride 107 mmol/L (98-107); Creatinine, Serum 0.75 mg/dL (0.55-1.02); EST Glomerular Filtration Rate 102 mL/min (>60); Est Glom Filt Rate - Afr Amer 123 mL/min (>60); GGTP 23 U/L (5-55); Globulin 3.3 g/dL (2.2-4.2); Glucose 84 mg/dL (74-106); Lipase 382 U/L (73-393); Potassium 3.6 mmol/L (3.5-5.1); Protein, Total 7.4 g/dL (6.4-8.2); Sodium Level 139 mmol/L (136-145)
== END ==
PROVIDERS: PCP Family Medicine; Visit Provider Family Medicine
DX: R10.13 Epigastric pain (principal)
CPT/HCPCS: 36415; 80053; 82150; 82977; 83690; 85025; 86140

== ENCOUNTER → 2021-03-24 | Outpatient (CLI) | payer MEDICAID, SELFPAY | END | disposition home or self-care (01) | LOC: MFPLAB 08:04 → LABSPEC 08:09 | PROVIDERS: PCP Family Medicine; Referring Provider Family Medicine; Visit Provider Family Medicine | DX: R10.9 Unspecified abdominal pain (principal) | CPT/HCPCS: 87077; 87086; 87088; 87186 ==

== ENCOUNTER → 2021-03-25 12:17 | Outpatient (CLI) | payer MEDICAID, SELFPAY ==
--- NOTE | 2021-03-25 12:20 | CT_ITS ---
STUDY: CT ABDOMEN AND PELVIS WITHOUT CONTRAST REASON FOR EXAM: Female, 25 years old. ABD PAIN RADIATION DOSAGE (If Supplied By Facility): CTDIvol = ( 6.04 ) mGy, DLP = ( 271.80 ) mGycm TECHNIQUE: Transaxial images were obtained from the dome of the diaphragm to the symphysis pubis without oral contrast, and without intravenous contrast. Sagittal and coronal images were reconstructed. Individualized dose optimization techniques were used for this CT. COMPARISON: None. FINDINGS: The liver and spleen are normal in size and attenuation. The suprarenal glands and pancreas are unremarkable. Both kidneys are normal in size, shape and position no obvious calculi seen however there is tiny calcification at the UV junction on the right side could represent very tiny distal ureteral calculus (CT scan numbers 601 image 42/[address] 2[address] Image 14 10/02 61). No obvious abnormality seen in the small or large bowel. The visualized bones are intact. Normal abdominal aorta. Normal inferior vena cava. Normal retroperitoneum. No evidence of free air or free fluid within the peritoneal cavity. Normal urinary bladder. Normal abdominal wall. Normal osseous structures. CT/Abdomen/Pelvis without Cont IMPRESSION: There is a tiny calculus distal ureter at the UV junction on the right. Correlate clinically. Electronically Signed: Jay Jay Gimenez, at 13:26 EDT Tel , Service support ,
== END ==
PROVIDERS: PCP Family Medicine; Referring Provider Family Medicine; Visit Provider Family Medicine
DX: R10.9 Unspecified abdominal pain (principal)
CPT/HCPCS: 74176

== ENCOUNTER → 2021-05-06 14:12 | Outpatient (CLI) | payer MEDICAID, SELFPAY ==
--- NOTE | 2021-05-06 14:13 | CT_ITS ---
EXAM: CT ABDOMEN AND PELVIS WITHOUT INTRAVENOUS CONTRAST CLINICAL INDICATION: Calculus of ureter TECHNIQUE: Helically acquired images were obtained of the abdomen and pelvis without intravenous contrast. This CT exam was performed using one or more of the following dose reduction techniques: automated exposure control, adjustment of the mA and/or kV according to patient size, and/or use of iterative reconstruction technique. This report was created using [employer] report generation technology. COMPARISON: 03/25/2021 FINDINGS: LOWER THORAX: Unremarkable. Lung bases are clear. No cardiomegaly. No significant pericardial effusion. ABDOMEN: LIVER: Unremarkable. Homogeneous. GALLBLADDER AND BILE DUCTS: Unremarkable. No calcified gallstones. No gallbladder distention or wall edema. No intra- or extrahepatic biliary ductal dilation. PANCREAS: Unremarkable. No focal cystic mass. SPLEEN: Unremarkable. Normal size without focal cystic or solid mass. ADRENALS: Unremarkable. No nodules. KIDNEYS AND URETERS: Unremarkable. Normal renal size and position. No hydronephrosis. The tiny punctate calculus suggested on the prior study in the region of the right UVJ is no longer seen. STOMACH AND BOWEL: Unremarkable. No stomach or bowel distention. No focal inflammatory change. PELVIS: APPENDIX: No evidence of acute appendicitis. BLADDER: Unremarkable. REPRODUCTIVE: Unremarkable as visualized. No mass. ABDOMEN and PELVIS: INTRAPERITONEAL SPACE: Unremarkable. No ascites or other fluid collection. No free air. BONES/JOINTS: Unremarkable. No suspicious lytic or blastic abnormality. SOFT TISSUES: Unremarkable. No discrete abdominal or pelvic wall hernia. VASCULATURE: There are vascular phleboliths in the pelvis. Abdominal aorta is non-dilated. LYMPH NODES: Unremarkable. No enlarged lymph nodes. CT/Abdomen/Pelvis without Cont IMPRESSION: No hydronephrosis or ureteral calculi. Electronically Signed: Isra Garcia MD (Brooks) at 16:45 EDT , Service support ,
== END ==
PROVIDERS: PCP Family Medicine; Referring Provider Urology; Visit Provider Urology
DX: N20.1 Calculus of ureter (principal)
CPT/HCPCS: 74176

== ENCOUNTER → 2021-06-29 15:27 | Outpatient (CLI) | payer MEDICAID, SELFPAY ==
[2021-06-29 18:23] LABS: Cholesterol 140 mg/dL (200); High Density Lipoprotein 51 mg/dL
[2021-06-30 09:23] LABS: HIV - WCH Non-Reactive (Nonreactive); Hepatitis C Antibody Non-Reactive (Nonreactive)
== END ==
PROVIDERS: PCP Family Medicine; Referring Provider Family Medicine; Visit Provider Family Medicine
DX: Z00.00 Encounter for general adult medical examination without abnormal findings (principal); Z11.59 Encounter for screening for other viral diseases; Z11.4 Encounter for screening for human immunodeficiency virus [HIV]
CPT/HCPCS: 36415; 82465; 83718; 86703; 86803

== ENCOUNTER 2022-01-04 09:37 | Outpatient (CLI) | payer MEDICAID, SELFPAY ==
[2022-01-04 10:05] LABS: Absolute Lymphocyte Count 1.78 X10^3/uL (0.83-4.51); Absolute Neutrophil Count 3.9 X10^3/uL (2.0-7.7); Basophil# 0.05 X10^3/uL; Basophil% 0.8 % (0-1); Eosinophil# 0.18 X10^3/uL; Eosinophils% 2.9 % (0-5); Hematocrit 38.7 % (37-47); Hemoglobin 12.8 g/dL (12.0-15.0); Lymphocyte # 1.78 X10^3/ul (0.83-4.51); Lymphocyte % 28.3 % (19-41); Mean Corp Hgb Conc 33.1 g/dL (32-36); Mean Corpuscular Hgb 30.7 pg (27.0-32.0); Mean Corpuscular Volume 92.8 fL (81-99); Monocyte# 0.34 X10^3/uL; Monocyte% 5.4 % (0-10); NRBC Flagged by Analyzer 0 % (0-5); Neutrophil # 3.91 X10^3/uL (2.7-7.7); Neutrophil % 62.3 % (47-70); Platelet Count 297 K/mm3 (150-450); RBC Distribution Width CV 12.5 % (11.6-14.6); RBC Distribution Width SD 42.7 fl (35.1-43.9); Red Blood Count 4.17 M/mm3 (4.2-5.4); White Blood Count 6.3 K/mm3 (4.4-11.0)
[2022-01-04 10:47] LABS: Vitamin B12 678 pg/mL (211-911); Vitamin D,25 Hydroxy 30.2 ng/mL
[2022-01-04 11:14] LABS: ALB/GLOB Ratio 1.1 RATIO (0.9-2.4); AST(SGOT) 15 U/L (15-37); Alanine Aminotransfer ALT/SGPT 24 U/L (13-56); Alkaline Phosphatase 57 U/L (45-117); Anion Gap 7 (5-15); BUN 10 mg/dL (7-18); BUN/Creat Ratio 11.8 RATIO (10-20); Calcium,Total 8.7 mg/dL (8.5-10.1); Chloride 107 mmol/L (98-107); Creatinine, Serum 0.84 mg/dL (0.55-1.02); EST Glomerular Filtration Rate 88 mL/min (>60); Est Glom Filt Rate - Afr Amer 106 mL/min (>60); Ferritin 64 ng/mL (8-252); Globulin 3.5 g/dL (2.2-4.2); Glucose 82 mg/dL (74-106); Potassium 3.8 mmol/L (3.5-5.1); Protein, Total 7.5 g/dL (6.4-8.2); Sodium Level 139 mmol/L (136-145); Thyroid Stim Hormone (TSH) 1.64 uIU/mL (0.358-3.74)
== END 2022-01-04 23:59 | disposition home or self-care (01) ==
LOC: MFPLAB 09:38
PROVIDERS: PCP Family Medicine; Referring Provider Family Medicine; Visit Provider Registered Nurse
DX: R53.83 Other fatigue (principal)
CPT/HCPCS: 36415; 80053; 82306; 82607; 82728; 84443; 85025

== ENCOUNTER 2022-01-14 16:02 | Outpatient (CLI) | payer MEDICAID, SELFPAY ==
--- NOTE | 2022-01-14 16:03 | CT_ITS ---
STUDY: CT BRAIN WITHOUT CONTRAST REASON FOR EXAM: Female, 26 years old. headaches, vision changes TECHNIQUE: Transaxial CT imaging of the brain was performed without administration of intravenous contrast material. Individualized dose optimization techniques were used for this CT. COMPARISON: None FINDINGS: Normal calvarium. Normal soft tissues. Normal size ventricles and extra-axial spaces for the patient''s age. Normal white matter tracts of the cerebral hemispheres. Normal basal ganglia and thalami. Normal brainstem. Normal cerebellum. There is no intracranial hemorrhage. There are no findings of an acute ischemic infarction. Normal visualized paranasal sinuses. ASPECTS 10 CT/Brain/Head without Contrast IMPRESSION: There are no acute intracranial findings. Electronically Signed: Leodan Goldman MD at 17:36 EDT ,
== END 2022-01-14 23:59 | disposition home or self-care (01) ==
LOC: CT 16:02
PROVIDERS: PCP Family Medicine; Referring Provider Registered Nurse; Visit Provider Registered Nurse
DX: R51.9 Headache, unspecified (principal)
CPT/HCPCS: 70450

== ENCOUNTER → 2022-02-02 | Outpatient (CLI) | payer MEDICAID, SELFPAY ==
[2022-02-02 12:19] LABS: Vitamin D,25 Hydroxy 29.5 ng/mL
[2022-02-04 00:07] LABS: Chlamydia By Nucleic Acid AMP Negative (Negative)
[2022-02-04 08:36] LABS: Gonococcus By Nucleic Acid AMP Negative (Negative)
== END | disposition home or self-care (01) ==
LOC: WOBLAB 11:03
PROVIDERS: PCP Family Medicine; Visit Provider Obstetrics & Gynecology
DX: Z11.3 Encounter for screening for infections with a predominantly sexual mode of transmission (principal); Z30.42 Encounter for surveillance of injectable contraceptive
CPT/HCPCS: 36415; 82306; 87491; 87591

== ENCOUNTER → 2022-04-26 | Outpatient (CLI) | payer MEDICAID, SELFPAY ==
[2022-04-26 18:06] LABS: Absolute Lymphocyte Count 2.43 X10^3/uL (0.83-4.51); Absolute Neutrophil Count 7.8 X10^3/uL (2.0-7.7); Basophil# 0.03 X10^3/uL; Basophil% 0.3 % (0-1); Eosinophil# 0.04 X10^3/uL; Eosinophils% 0.4 % (0-5); Hematocrit 41.6 % (37-47); Hemoglobin 14.2 g/dL (12.0-15.0); Lymphocyte # 2.43 X10^3/ul (0.83-4.51); Lymphocyte % 22.6 % (19-41); Mean Corp Hgb Conc 34.1 g/dL (32-36); Mean Corpuscular Hgb 31.3 pg (27.0-32.0); Mean Corpuscular Volume 91.8 fL (81-99); Mean Platelet Vol. 9.9 fl (6.2-12.0); Monocyte# 0.45 X10^3/uL; Monocyte% 4.2 % (0-10); NRBC Flagged by Analyzer 0 % (0-5); Neutrophil % 72.3 % (47-70); Platelet Count 338 K/mm3 (150-450); RBC Distribution Width SD 40.4 fl (35.1-43.9); Red Blood Count 4.53 M/mm3 (4.2-5.4); White Blood Count 10.8 K/mm3 (4.4-11.0)
[2022-04-26 18:38] LABS: D-Dimer Quantitative (DVT/PE) < 0.27 FEU/ug/m (0.27-0.49)
[2022-04-26 19:03] LABS: BNP,B-Type NATRIURETIC PEPTIDE 5.2 pg/mL (0-100)
[2022-04-26 19:34] LABS: ALB/GLOB Ratio 1.5 RATIO (0.9-2.4); AST(SGOT) 17 U/L (15-37); Alanine Aminotransfer ALT/SGPT 24 U/L (13-56); Albumin, Serum 4.4 g/dL (3.2-5.0); Alkaline Phosphatase 51 U/L (45-117); Amylase 95 U/L (25-115); Anion Gap 8 (5-15); BUN 11 mg/dL (7-18); BUN/Creat Ratio 10.8 RATIO (10-20); Calcium,Total 9.5 mg/dL (8.5-10.1); Chloride 107 mmol/L (98-107); Creatinine, Serum 1.02 mg/dL (0.55-1.02); EST Glomerular Filtration Rate 70 mL/min (>60); Est Glom Filt Rate - Afr Amer 85 mL/min (>60); Glucose 77 mg/dL (74-106); Lipase 411 U/L (73-393); Potassium 3.8 mmol/L (3.5-5.1); Protein, Total 7.4 g/dL (6.4-8.2); Sodium Level 139 mmol/L (136-145); Thyroid Stim Hormone (TSH) 1.55 uIU/mL (0.358-3.74)
[2022-04-27 21:42] LABS: CRP, High Sensitivity Cardiac 0.38 mg/L
== END | disposition home or self-care (01) ==
LOC: MFPLAB 15:15
PROVIDERS: PCP Family Medicine; Referring Provider Family Medicine; Visit Provider Family Medicine
DX: R06.09 Other forms of dyspnea (principal); K29.70 Gastritis, unspecified, without bleeding
CPT/HCPCS: 36415; 80053; 82150; 83690; 83880; 84443; 85025; 85379; 86141

== ENCOUNTER → 2022-05-02 | Outpatient (CLI) | payer MEDICAID, SELFPAY ==
[2022-05-02 12:43] LABS: ALB/GLOB Ratio 1.3 RATIO (0.9-2.4); AST(SGOT) 18 U/L (15-37); Alanine Aminotransfer ALT/SGPT 20 U/L (13-56); Albumin, Serum 4.6 g/dL (3.2-5.0); Alkaline Phosphatase 54 U/L (45-117); Amylase 96 U/L (25-115); Anion Gap 7 (5-15); BUN 8 mg/dL (7-18); CRP < 2.90 mg/L (0.0-3.0); Calcium,Total 9.4 mg/dL (8.5-10.1); Chloride 109 mmol/L (98-107); EST Glomerular Filtration Rate 93 mL/min (>60); Est Glom Filt Rate - Afr Amer 112 mL/min (>60); GGTP 17 U/L (5-55); Globulin 3.5 g/dL (2.2-4.2); Glucose 70 mg/dL (74-106); Lipase 375 U/L (73-393); Potassium 3.4 mmol/L (3.5-5.1); Protein, Total 8.1 g/dL (6.4-8.2); Sodium Level 139 mmol/L (136-145)
== END | disposition home or self-care (01) ==
LOC: MFPLAB 11:20
PROVIDERS: PCP Family Medicine; Visit Provider Family Medicine
DX: K85.90 Acute pancreatitis without necrosis or infection, unspecified (principal)
CPT/HCPCS: 36415; 80053; 82150; 82977; 83690; 86140

== ENCOUNTER → 2022-05-13 | Outpatient (CLI) | payer MEDICAID, SELFPAY ==
--- NOTE | 2022-05-13 09:12 | ECHOCS_ITS ---
Reason For Study: DYSPNEA Procedure This was a 2D Doppler, Color Flow transthoracic echocardiogram. The study was technically difficult. Contrast injection was performed. Exam performed in department. Left Ventricle Normal LV size. Left ventricular systolic function is normal. The estimated ejection fraction is 65 %. No evidence for diastolic dysfunction. No regional wall motion abnormalities noted. Right Ventricle Normal RV size. Normal systolic function. Atria Normal left atrium. Normal right atrium. No doppler evidence for ASD. Mitral Valve There is no mitral annular calcification. Anterior leaflet diffuse mitral valve thickening. Trivial mitral valve insufficiency. Tricuspid Valve Normal tricuspid valve. Trivial tricuspid valve insufficiency. Unable to estimate RV systolic pressure due to insufficient tricuspid regurgitant envelope. Aortic Valve The aortic valve is not well visualized. Pulmonic Valve The pulmonic valve is not well visualized. Great Vessels The aortic root is not well visualized. Pericardium/Pleural No pericardial effusion. Medication 22 gauge I.V. with prn adaptor inserted into left arm. Diluted definity 1ml given slow IV push to enhance endocardial definition. MMode/2D Measurements & Calculations LVIDd: 4.1 cm IVSd: 0.46 cm LAV(MOD-sp4): 23.4 ml LVIDs: 2.3 cm LVPWd: 0.54 cm FS: 44.0 % LVAd ap4: 26.1 cm2 SV(MOD-sp4): 46.5 ml SV(sp4-el): 46.9 ml LVLd ap4: 7.3 cm EDV(MOD-sp4): 78.3 ml EDV(sp4-el): 79.2 ml LVAs ap4: 14.3 cm2 LVLs ap4: 5.4 cm ESV(MOD-sp4): 31.8 ml ESV(sp4-el): 32.3 ml EF(MOD-sp4): 59.3 % EF(sp4-el): 59.3 % LA A4 area: 11.3 cm2 LA dimension(2D): 2.9 cm RA A4 area: 8.0 cm2 Time Measurements MV dec time: 0.22 sec Doppler Measurements & Calculations MV E max rafat: 80.3 cm/sec Lat Peak E' Rafat: 17.4 cm/sec Med Peak E' Rafat: 11.9 cm/sec MV A max rafat: 53.1 cm/sec E/E' lat: 4.6 E/E' med: 6.7 MV E/A: 1.5 MV V2 max: 97.9 cm/sec Ao V2 max: 120.6 cm/sec MV max P.8 mmHg MV dec slope: 364.5 cm/sec2 Ao max P.8 mmHg MV V2 mean: 64.8 cm/sec Ao V2 mean: 81.5 cm/sec MV mean P.8 mmHg Ao mean P.1 mmHg MV V2 VTI: 24.9 cm Ao V2 VTI: 26.3 cm LV V1 max: 97.9 cm/sec LV V1 max P.8 mmHg LV V1 mean P.2 mmHg LV V1 mean: 69.8 cm/sec LV V1 VTI: 18.8 cm ECHO/Echo Complete W/ Contrast Interpretation Summary The study was technically difficult. Contrast injection was performed. Left ventricular systolic function is normal. The estimated ejection fraction is 65 %. Anterior leaflet diffuse mitral valve thickening. Trivial mitral valve insufficiency. Trivial tricuspid valve insufficiency. Unable to estimate RV systolic pressure due to insufficient tricuspid regurgita nt envelope. No evidence for diastolic dysfunction. Ordering Physician: Jamaal Duarte Referring Physician: Jamaal Duarte Performed By: Leighann Berman RCS
== END | disposition home or self-care (01) ==
LOC: CVS 09:10
PROVIDERS: PCP Family Medicine; Referring Provider Family Medicine; Visit Provider Family Medicine
DX: R06.00 Dyspnea, unspecified (principal)
CPT/HCPCS: 93306; Q9957; A4216; C8929

== ENCOUNTER → 2022-05-23 | Outpatient (CLI) | payer MEDICAID, SELFPAY ==
[2022-05-23 15:05] LABS: Absolute Lymphocyte Count 1.96 X10^3/uL (0.83-4.51); Absolute Neutrophil Count 2.7 X10^3/uL (2.0-7.7); Basophil# 0.04 X10^3/uL; Basophil% 0.8 % (0-1); Eosinophil# 0.13 X10^3/uL; Eosinophils% 2.5 % (0-5); Hemoglobin 14.2 g/dL (12.0-15.0); Lymphocyte # 1.96 X10^3/ul (0.83-4.51); Lymphocyte % 38.4 % (19-41); Mean Corp Hgb Conc 33.8 g/dL (32-36); Mean Corpuscular Hgb 31.9 pg (27.0-32.0); Mean Corpuscular Volume 94.4 fL (81-99); Mean Platelet Vol. 9.4 fl (6.2-12.0); Monocyte# 0.29 X10^3/uL; Monocyte% 5.7 % (0-10); NRBC Flagged by Analyzer 0 % (0-5); Neutrophil # 2.68 X10^3/uL (2.7-7.7); Neutrophil % 52.4 % (47-70); Platelet Count 310 K/mm3 (150-450); RBC Distribution Width SD 44.9 fl (35.1-43.9); Red Blood Count 4.45 M/mm3 (4.2-5.4); White Blood Count 5.1 K/mm3 (4.4-11.0)
[2022-05-23 15:32] LABS: ALB/GLOB Ratio 1.2 RATIO (0.9-2.4); AST(SGOT) 23 U/L (15-37); Alanine Aminotransfer ALT/SGPT 27 U/L (13-56); Albumin, Serum 4.4 g/dL (3.2-5.0); Alkaline Phosphatase 55 U/L (45-117); Anion Gap 10 (5-15); BUN 14 mg/dL (7-18); BUN/Creat Ratio 15.6 RATIO (10-20); Calcium,Total 8.9 mg/dL (8.5-10.1); Chloride 105 mmol/L (98-107); EST Glomerular Filtration Rate 82 mL/min (>60); Est Glom Filt Rate - Afr Amer 99 mL/min (>60); Globulin 3.7 g/dL (2.2-4.2); Glucose 74 mg/dL (74-106); Potassium 3.6 mmol/L (3.5-5.1); Protein, Total 8.1 g/dL (6.4-8.2); Sodium Level 138 mmol/L (136-145)
[2022-05-25 16:09] LABS: Endomysial Antibody IgA Negative (Negative)
[2022-05-26 09:27] LABS: Immunoglobulin A 120 mg/dL (87-352); t-Transglutaminase IgA <2 U/mL (0-3)
== END | disposition home or self-care (01) ==
LOC: MFPLAB 12:03
PROVIDERS: PCP Family Medicine; Visit Provider Family Medicine
DX: K92.1 Melena (principal)
CPT/HCPCS: 36415; 80053; 82784; 83516; 85025; 86255

== ENCOUNTER → 2022-07-07 | Outpatient (CLI) | payer MEDICAID, SELFPAY ==
--- NOTE | 2022-07-07 12:38 | STRESSREP ---
Stress Test Report Date: 07/07/2000 Procedure: Exercise tolerance test Indications: Palpitation Consent: Per the patient Procedure: The patient exercised on a Yury protocol for 11 minutes achieving a peak heart rate of 157 bpm (80% predicted maximal heart rate) with a peak blood pressure 150/62 mmHg and a peak MET capacity of approximately 13 point MET's. The baseline ECG demonstrated normal sinus. The peak exercise ECG demonstrated sinus tachycardia, no ischemic changes noted. No cardiac arrhythmias were noted pretest during exercise or in recovery. The functional capacity was considered good. The patient had no complaint of chest discomfort during exercise or recovery. The examination was discontinued secondary to target heart rate being achieved. Impression: 1. Technically adequate (percent predicted maximal heart rate greater than 85%) exercise tolerance test 2. Peak exercise ECG with no ischemic changes. 3. No arrhythmias were noted during exercise or in recovery. This note was generated with [employer] software. It may contain incorrect words, spelling, and punctuation that were not noted in checking the note before signing.
== END | disposition home or self-care (01) ==
LOC: CVS 10:01
PROVIDERS: PCP Family Medicine; Referring Provider Internal Medicine Cardiovascular Disease; Visit Provider Internal Medicine Cardiovascular Disease
DX: R00.2 Palpitations (principal)
CPT/HCPCS: 93017

== ENCOUNTER → 2022-07-11 | Outpatient (CLI) | payer MEDICAID, SELFPAY ==
[2022-07-11 15:45] LABS: Absolute Lymphocyte Count 1.64 X10^3/uL (0.83-4.51); Absolute Neutrophil Count 2.9 X10^3/uL (2.0-7.7); Basophil# 0.02 X10^3/uL; Basophil% 0.4 % (0-1); Eosinophil# 0.07 X10^3/uL; Eosinophils% 1.4 % (0-5); Hematocrit 40.7 % (37-47); Hemoglobin 13.4 g/dL (12.0-15.0); Lymphocyte # 1.64 X10^3/ul (0.83-4.51); Lymphocyte % 33.8 % (19-41); Mean Corp Hgb Conc 32.9 g/dL (32-36); Mean Corpuscular Hgb 31.8 pg (27.0-32.0); Mean Corpuscular Volume 96.7 fL (81-99); Mean Platelet Vol. 9.6 fl (6.2-12.0); Monocyte# 0.22 X10^3/uL; Monocyte% 4.5 % (0-10); NRBC Flagged by Analyzer 0 % (0-5); Neutrophil # 2.88 X10^3/uL (2.7-7.7); Neutrophil % 59.5 % (47-70); Platelet Count 296 K/mm3 (150-450); RBC Distribution Width CV 12.3 % (11.6-14.6); RBC Distribution Width SD 43.8 fl (35.1-43.9); Red Blood Count 4.21 M/mm3 (4.2-5.4); White Blood Count 4.9 K/mm3 (4.4-11.0)
[2022-07-11 16:00] LABS: Anion Gap 8 (5-15); BUN 10 mg/dL (7-18); BUN/Creat Ratio 13.2 RATIO (10-20); Calcium,Total 9.4 mg/dL (8.5-10.1); Chloride 108 mmol/L (98-107); Creatinine, Serum 0.76 mg/dL (0.55-1.02); EST Glomerular Filtration Rate 99 mL/min (>60); Est Glom Filt Rate - Afr Amer 119 mL/min (>60); Glucose 68 mg/dL (74-106); Potassium 4.1 mmol/L (3.5-5.1); Sodium Level 140 mmol/L (136-145)
[2022-07-11 16:49] LABS: hCG Titer Quant., Serum < 1 mIU/mL (1-3)
== END | disposition home or self-care (01) ==
LOC: MFPLAB 12:07
PROVIDERS: PCP Family Medicine; Visit Provider Family Medicine
DX: G90.A Postural orthostatic tachycardia syndrome [POTS] (principal)
CPT/HCPCS: 36415; 80048; 84702; 85025

== ENCOUNTER → 2022-07-12 | Outpatient (CLI) | payer MEDICAID, SELFPAY ==
--- NOTE | 2022-07-13 07:57 | PCM.TILTTABL ---
Summary Pre Test Resting HR: 82 Pre Test Resting BP: 107/68 Minimum Test HR: 66 Maximum Test HR: 92 Minimum Test BP: 104/70 Maximum Test BP: 118/79 Physician Tilt Table Report Patient's Physicians Primary Care Physician: Jamaal Duarte Communication Signals Intelligence: Philippe Beatty Indications/Diagnosis: Palpitations Procedure Comments: The patient was brought to the noninvasive lab in the postabsorptive nonsedated state. The initial heart rate was 82 bpm with a blood pressure of 107/68 mmHg. The patient was then placed in the 70 degree head upright tilt position and monitored for 20 minutes. The patient maintained sinus rhythm as well as a normal blood pressure. Patient did not experience any symptomatology throughout the period of observation. She did maintain sinus rhythm and a normal blood pressure. The patient was then placed back in the recumbent position. The maximum heart rate noted was 92 bpm in sinus rhythm with a maximum blood pressure 118/79 mmHg. Summary: Negative tilt table test with no evidence of syncope or heart rate or blood pressure response.
[2022-07-13 08:01] VITALS: BP 104/70; BP 107/68; BP 118/79
== END | disposition home or self-care (01) ==
LOC: CVS 09:30
PROVIDERS: PCP Family Medicine; Referring Provider Family Medicine; Visit Provider Family Medicine
DX: R06.09 Other forms of dyspnea (principal); G90.A Postural orthostatic tachycardia syndrome [POTS]; I49.8 Other specified cardiac arrhythmias
CPT/HCPCS: 93660; J7040; A4216

== ENCOUNTER → 2022-07-14 | Outpatient (CLI) | payer MEDICAID, SELFPAY ==
[2022-07-14 10:22] LABS: Erythrocyte Sedimentation Rate < 1 mm/hr (0-30)
[2022-07-14 10:24] LABS: Absolute Lymphocyte Count 1.77 X10^3/uL (0.83-4.51); Basophil# 0.03 X10^3/uL; Basophil% 0.6 % (0-1); Eosinophil# 0.12 X10^3/uL; Eosinophils% 2.3 % (0-5); Hematocrit 40.3 % (37-47); Hemoglobin 13.8 g/dL (12.0-15.0); Lymphocyte # 1.77 X10^3/ul (0.83-4.51); Lymphocyte % 34.2 % (19-41); Mean Corp Hgb Conc 34.2 g/dL (32-36); Mean Corpuscular Hgb 32.4 pg (27.0-32.0); Mean Corpuscular Volume 94.6 fL (81-99); Mean Platelet Vol. 9.4 fl (6.2-12.0); Monocyte# 0.26 X10^3/uL; NRBC Flagged by Analyzer 0 % (0-5); Neutrophil # 2.99 X10^3/uL (2.7-7.7); Neutrophil % 57.7 % (47-70); Platelet Count 293 K/mm3 (150-450); RBC Distribution Width CV 12.2 % (11.6-14.6); RBC Distribution Width SD 42.8 fl (35.1-43.9); Red Blood Count 4.26 M/mm3 (4.2-5.4); White Blood Count 5.2 K/mm3 (4.4-11.0)
[2022-07-14 10:52] LABS: ALB/GLOB Ratio 1.2 RATIO (0.9-2.4); AST(SGOT) 15 U/L (15-37); Alanine Aminotransfer ALT/SGPT 22 U/L (13-56); Albumin, Serum 4.3 g/dL (3.2-5.0); Alkaline Phosphatase 51 U/L (45-117); Anion Gap 7 (5-15); BUN 12 mg/dL (7-18); BUN/Creat Ratio 14.4 RATIO (10-20); CRP < 2.90 mg/L (0.0-3.0); Calcium,Total 9.1 mg/dL (8.5-10.1); Chloride 109 mmol/L (98-107); Creatinine, Serum 0.84 mg/dL (0.55-1.02); EST Glomerular Filtration Rate 88 mL/min (>60); Est Glom Filt Rate - Afr Amer 107 mL/min (>60); Globulin 3.6 g/dL (2.2-4.2); Glucose 71 mg/dL (74-106); LDH 179 U/L (84-246); Potassium 3.9 mmol/L (3.5-5.1); Protein, Total 7.9 g/dL (6.4-8.2); Sodium Level 140 mmol/L (136-145)
[2022-07-15 13:08] LABS: Anti-Centromere B Ab <0.2 AI (0.0-0.9); Anti-Chromatin <0.2 AI (0.0-0.9); Anti-Jo <0.2 AI (0.0-0.9); Anti-Scleroderma-70 AB <0.2 AI (0.0-0.9); RNP Ab <0.2 AI (0.0-0.9); SJOGREN'S Anti-SS-A test < 0.2 AI (0.0-0.9); SJOGREN'S Anti-SS-B test 0.4 AI (0.0-0.9); Smith Ab <0.2 AI (0.0-0.9)
[2022-07-15 16:09] LABS: Endomysial Antibody IgA Negative (Negative)
[2022-07-16 11:34] LABS: Immunoglobulin A 119 mg/dL (87-352); t-Transglutaminase IgA <2 U/mL (0-3)
[2022-07-16 13:56] LABS: Anti-dsDNA Ab <1 IU/mL (0-9)
[2022-07-24 15:07] LABS: Albumin 4.7 g/dL (2.9-4.4); Alpha-1-Globulins 0.3 g/dL (0.0-0.4); Alpha-2-Globulins 0.7 g/dL (0.4-1.0); Cytoplasmic Ab (C-ANCA) 1:40 titer (Neg:<1:20); IgG, Quant 952 mg/dL (586-1602); Immunoglobulin A 115 mg/dL (87-352); Immunoglobulin E 31 IU/mL (6-495); Immunoglobulin G, Subclass 1 539 mg/dL (248-810); Immunoglobulin G, Subclass 2 315 mg/dL (130-555); Immunoglobulin G, Subclass 3 72 mg/dL (15-102); Immunoglobulin G, Subclass 4 19 mg/dL (2-96); Immunoglobulin M 123 mg/dL (26-217); PROEL- TOTAL PROTEIN 7.5 g/dL (6.0-8.5)
[2022-07-25 17:44] LABS: Perinuclear Ab (P-ANCA) <1:20 titer (Neg:<1:20)
[2022-07-28 13:11] LABS: Immunoglobulin G 952
== END | disposition home or self-care (01) ==
LOC: LAB 09:15
PROVIDERS: PCP Family Medicine; Referring Provider Internal Medicine Gastroenterology; Visit Provider Internal Medicine Gastroenterology
DX: K90.0 Celiac disease (principal)
CPT/HCPCS: 36415; 80053; 82784; 82785; 82787; 83516; 83615; 84165; 85025; 85652; 86140; 86225; 86235; 86255; 86256; 86334

== ENCOUNTER → 2022-08-08 | Outpatient (CLI) | payer MEDICAID, SELFPAY ==
--- NOTE | 2022-08-08 11:37 | MRI_ITS ---
STUDY: MR MRCP WITHOUT CONTRAST REASON FOR EXAM: Female, 26 years old. autoimmune pancreatitis TECHNIQUE: Standard MRCP technique was utilized. Three-dimensional reconstruction images of the biliary tree. COMPARISON: None. FINDINGS: Gall Bladder: Normal with no distention or demonstrated fixed intraluminal filling defect. Cystic duct: Normal with no demonstrated fixed filling defect. Intrahepatic ducts: Normal visualized intrahepatic ducts with no demonstrated fixed filling defect, dilation or stricture. Common hepatic duct: Normal with no demonstrated fixed filling defect, dilation or stricture. Common bile duct: Normal with no demonstrated fixed filling defect, dilation or stricture. Pancreatic duct: Normal with no demonstrated fixed filling defect, dilation or stricture. MRI/MRCP Abdomen without Contrast IMPRESSION: Normal MR Cholangiopancreatography (MRCP). Electronically Signed: Isra Garcia (Brooks), at 12:56 EST ,
== END | disposition home or self-care (01) ==
LOC: MRI 11:36
PROVIDERS: PCP Family Medicine; Referring Provider Internal Medicine Gastroenterology; Visit Provider Internal Medicine Gastroenterology
DX: Z87.19 Personal history of other diseases of the digestive system (principal)
CPT/HCPCS: 74181

== ENCOUNTER → 2022-08-12 | Outpatient (CLI) | payer MEDICAID, SELFPAY ==
--- NOTE | 2022-08-12 10:30 | NM_ITS ---
CLINICAL: 26-year-old female with history of clinical gastroparesis. SEMI-SOLID PHASE 99m Tc SULFUR COLLOID GASTRIC EMPTYING STUDY COMPARISON: None available FINDINGS: The patient was administered 1.1 mCi of 99m Tc sulfur colloid mixed with oatmeal and consumed per os. Image acquisitions in the anterior-posterior projections were obtained for 60 minutes. There is prompt visualization of the stomach. There is no gastroesophageal reflux identified. The T ? linear fit was calculated to be 42.79 minutes, (Normal: 12-56 minutes). NM/Gastric Emptying Study IMPRESSION: 1. NORMAL 99m Tc sulfur colloid semi-solid phase (oatmeal) gastric emptying imaging examination. A. There is normal and preserved semi-solid phase gastric emptying compared to normal controls. (Roman et al, J Nucl Med Tech 38: 186, 2010). Electronically Signed: Edmond Castorena, at 9:33 EST ,
== END | disposition home or self-care (01) ==
LOC: NM 10:29
PROVIDERS: PCP Family Medicine; Referring Provider Internal Medicine Gastroenterology; Visit Provider Internal Medicine Gastroenterology
DX: K90.0 Celiac disease (principal); Z87.19 Personal history of other diseases of the digestive system
CPT/HCPCS: 78264; A9541

== ENCOUNTER → 2022-08-18 | Outpatient (CLI) | payer MEDICAID, SELFPAY ==
--- NOTE | 2022-08-18 10:01 | NM_ITS ---
CLINICAL: 27-year-old female with history of right upper quadrant abdominal pain. RADIONUCLIDE HEPATOBILIARY SCINTIGRAPHY COMPARISON: MRI of the gallbladder report 08/08/2022 FINDINGS: Following the intravenous administration of 5.2 mCi of 99m Tc Mebrofenin, hepatobiliary images reveal: 1. Relatively prompt and homogeneous radiopharmaceutical concentration is noted by a normal sized liver. No parenchymal defects are identified. 2. Gallbladder activity is identified at 15 minutes post radiopharmaceutical administration. 3. Small intestinal tract is observed at 10 minutes following tracer injection. 4. Washout of the radiopharmaceutical by the hepatic parenchyma appears qualitatively normal. Cholecystokinin (0.02 ug/kg) was administered intravenously over a 30-minute period. The post CCK gallbladder ejection fraction calculated at 21 minutes following Cholecystokinin administration was noted to be 85.0 % (normal greater than 35%). During 30 minutes of post CCK imaging, there is no scintigraphic evidence of reflux of the radiotracer into the common hepatic duct or refilling of the gallbladder. There is scintigraphic evidence of post CCK duodenal gastric reflux. OR/Hepatobilliary Img w/Pharm Int IMPRESSION: 1. A gallbladder ejection fraction calculated to be greater than 35% following the administration of Cholecystokinin makes the probability of functional hepatobiliary disease (gallbladder and/or sphincter of Oddi dyskinesia) and/or organic hepatobiliary disease (chronic acalculous cholecystitis and/or cystic duct syndrome) to be low. (Stacey Cobb et al, Journal of Nuclear Medicine 32:1695, 1990). 2. There is scintigraphic evidence of post CCK duodenal-gastric reflux. (Osiel et al, Nucl Med [employer] pg. 35, 1980). Electronically Signed: Edmond Castorena, at 20:26 EST ,
== END | disposition home or self-care (01) ==
LOC: NM 10:01
PROVIDERS: PCP Family Medicine; Referring Provider Internal Medicine Gastroenterology; Visit Provider Internal Medicine Gastroenterology
DX: Z87.19 Personal history of other diseases of the digestive system (principal)
CPT/HCPCS: 78227; A9537; J2805

== ENCOUNTER → 2022-09-22 | Outpatient (CLI) | payer MEDICAID, SELFPAY ==
[2022-09-22 12:29] LABS: Amylase 79 U/L (25-115); Lipase 283 U/L (73-393)
[2022-09-27 16:52] LABS: Gastrin, Serum < 10 pg/mL (0-115)
== END | disposition home or self-care (01) ==
PROVIDERS: PCP Family Medicine; Referring Provider Internal Medicine Gastroenterology; Visit Provider Internal Medicine Gastroenterology
DX: R11.0 Nausea (principal); K90.0 Celiac disease
CPT/HCPCS: 36415; 82150; 82941; 83690

== ENCOUNTER → 2023-07-04 | Outpatient (CLI) | payer MEDICAID, SELFPAY ==
[2023-07-04 14:22] LABS: Bacteria 0 SEEN /hpf (None Seen); Mucous, Urine 0 SEEN /hpf (<or=2+); Red Blood Cells-Urine 0 SEEN /hpf (0-5); White Blood Cells 0 SEEN /hpf (0-5)
[2023-07-04 17:51] LABS: Absolute Lymphocyte Count 1.92 X10^3/uL (0.83-4.51); Basophil# 0.02 X10^3/uL; Basophil% 0.4 % (0-1); Eosinophil# 0.08 X10^3/uL; Eosinophils% 1.5 % (0-5); Hematocrit 39.4 % (37-47); Hemoglobin 13.2 g/dL (12.0-15.0); Lymphocyte # 1.92 X10^3/ul (0.83-4.51); Lymphocyte % 35.8 % (19-41); Mean Corp Hgb Conc 33.5 g/dL (32-36); Mean Corpuscular Hgb 30.4 pg (27.0-32.0); Mean Corpuscular Volume 90.8 fL (81-99); Mean Platelet Vol. 9.3 fl (6.2-12.0); Monocyte# 0.36 X10^3/uL; Monocyte% 6.7 % (0-10); NRBC Flagged by Analyzer 0 % (0-5); Neutrophil # 2.98 X10^3/uL (2.7-7.7); Neutrophil % 55.4 % (47-70); Platelet Count 305 K/mm3 (150-450); RBC Distribution Width CV 11.8 % (11.6-14.6); RBC Distribution Width SD 39.2 fl (35.1-43.9); Red Blood Count 4.34 M/mm3 (4.2-5.4); White Blood Count 5.4 K/mm3 (4.4-11.0)
[2023-07-04 18:09] LABS: Color, Urine Yellow (Yellow); Glucose, Dipstick Normal (Normal); Ketone-Dipstick Negative (Negative); Leukocyte Esterase-Dipstick 25 /ul (Negative); Nitrite-Dipstick Negative (Negative); Occult Blood-Urine Negative /ul (Negative); Protein-Dipstick Negative (Negative); Urine Bilirubin Dipstick Negative (Negative); Urine Clarity Clear (Clear); Urine Urobilinogen Normal (Normal); Urine pH 6.5 (5.0 - 8.0)
[2023-07-04 18:24] LABS: Squamous Epithelial Cells - UA 0-5 SEEN /hpf (5-10)
[2023-07-04 18:33] LABS: Erythrocyte Sedimentation Rate 2 mm/hr (0-30)
[2023-07-04 18:35] LABS: CPK Total, Creatine Kinase 116 U/L (26-192); CRP < 2.90 mg/L (0.0-3.0); Creatinine, Serum 0.84 mg/dL (0.55-1.02); EST Glomerular Filtration Rate 88 mL/min (>60); Est Glom Filt Rate - Afr Amer 106 mL/min (>60); Rheumatoid Factor < 10.0 IU/mL (<15)
[2023-07-06 13:07] LABS: ANTINUCLEAR ANTIBODIES DIRECT Negative (Negative); Anti-Centromere B Ab <0.2 AI (0.0-0.9); Anti-Jo <0.2 AI (0.0-0.9); Anti-Scleroderma-70 AB <0.2 AI (0.0-0.9); Anti-dsDNA Ab 1 IU/mL (0-9); RNP Ab <0.2 AI (0.0-0.9); Smith Ab <0.2 AI (0.0-0.9)
[2023-07-06 15:08] LABS: CCP IgG Antibodies 1 units (0-19); Complement C3 148 mg/dL (82-167); Cytoplasmic Ab (C-ANCA) 1:20 titer (Neg:<1:20); Perinuclear Ab (P-ANCA) <1:20 titer (Neg:<1:20)
== END | disposition home or self-care (01) ==
LOC: MTLAB 14:14
PROVIDERS: PCP Family Medicine
DX: R76.8 Other specified abnormal immunological findings in serum (principal)
CPT/HCPCS: 36415; 81001; 82550; 82565; 85025; 85652; 86038; 86140; 86160; 86200; 86225; 86235; 86256; 86431

== ENCOUNTER 2023-10-24 12:05 | Day surgery (SDC) | payer MEDICAID, SELFPAY ==
[2023-10-24] VITALS (7 sets, daily range): BP systolic 70–110; BP diastolic 30–79; PULSE 63–86; RESP 12–62; TEMP 36.3–37.3; O2SAT 97–100; BMI 22.3
[2023-10-24 12:28] LABS: Internal QC Validated? YES +Cl - CLEAR BKGD; Pregnancy, Urine Negative Negative
--- OUTSIDE RECORDS SUMMARY | 2023-10-24 12:31 | XMS RPT_ITS | CCD ---
Author Name Unknown Address [address] [place] [address] Organization [facility] Care Team Providers Care Pitch Gatherer Name Role Phone Chelsi Cook Unavailable Unavailable Duarte, Harshil A Unavailable Unavailable Unavailable Primary Care Provider Unavailabl e Unavailable Primary Care Provider Unavailabl e Unavailable Primary Care Provider Unavailabl e Mark Diallo Unavailable Harshil Duarte MD Primary Care Provider Harshil Duarte MD Primary Care Provider [phone] Mark Diallo Unavailable DARIN VICKERS Attending Unavailable DUARTE, HARSHIL MARA Primary Care Unavailable RANCHODARIN Attending Unavailable DUARTE, HARSHIL MARA Referring Unavailable DUARTE, HARSHIL MARA Primary Care Unavailable RANCHODARIN Attending Unavailable DUARTE, HARSHIL MARA Primary Care Unavailable RANCHO, NUSRATIM Referring Unavailable RANCHODARIN Attending Unavailable DUARTE, HARSHIL MARA Primary Care Unavailable Mark Diallo MD Unavailable LOLY ROSARIO Attending Unavailable DUARTE, HARSHIL A Primary Care Unavailable DUARTE, HARSHIL A Primary Care Unavailable LOLY ROSARIO Attending Unavailable DUARTE, HARSHIL A Primary Care Unavailable DUARTE, HARSHIL A Primary Care Unavailable GRACIE VALADEZ Referring Unavailable DUARTE, HARSHIL A Primary Care Unavailable DUARTE, HARSHIL A Primary Care Unavailable TOBY ARTIS Attending Unavailable GRACIE VALADEZ Attending Unavailable DUARTE, HARSHIL A Primary Care Unavailable DUARTE, HARSHIL A Primary Care Unavailable SAMUEL ORDAZ Referring Unavailab le DUARTE, HARSHIL A Primary Care Unavailable SAMUEL ORDAZ Attending Unavailab le DUARTE, HARSHIL A Primary Care Unavailable DUARTE, HARSHIL A Primary Care Unavailable LEIGH ANN FELDMAN Attending Unavailable HARSHIL DUARTE Primary Care Unavailable AUDELIASHWETHA LOLY Referring Unavailable HARSHIL DUARTE Primary Care Unavailable LEIGH ANN FELDMAN Referring Unavailable HARSHIL DUARTE Primary Care Unavailable Medications Current Medications Medication Drug Class(es) Dates Sig (Normalized) Sig (Original) acetaminophen 325 mg / HYDROcodone bitartrate 5 mg oral tablet (1 source) Opioid Agonist Start: 06-05-2023 End: 06-07-2023 take 1 tablet by mouth every six hours Bethany 325- 5 mg oral tablet Dose = 1 tab(s), Oral, q6h, # 8 tab(s), 0 Refill(s), Pleurisy Start Date: 06/05/23 Stop Date: 06/07/23 Status: Ordered gabapentin 100 mg oral capsule (7 sources) Anti-epileptic Agent Start: 05-19-2021 End: 08-19-2022 take 3 capsules by mouth once daily at bedtime gabapentin (NEURONTIN) 100 mg capsule Indications: Vulvodynia , Chronic interstitial cystitis TAKE 3 CAPSULES BY MOUTH ONCE DAILY AT BEDTIME 90 capsule 2 07/21/2022 08/19/2022 Active Completed/Discontinued Medications Medication Drug Class(es) Dates Sig (Normalized) Sig (Original) amitriptyline hydrochloride 10 mg oral tablet (11 sources) Tricyclic Antidepressant Start: 10-17-2022 End: 06-30-2023 amitriptyline (ELAVIL) 10 mg tablet 30 mg once daily. 3 caps daily 0 10/17/2022 06/30/2023 Discontinued Problems Active Problems Problem Classification Problem Date Documented Da te Episodic/Chronic Cardiac dysrhythmias (11 sources) Paroxysmal supraventricular tachycardia; Translations: [Supraventricular tachycardia] 08-15-2022 Chronic Cardiac dysrhythmias (20 sources) Sinus tachycardia; Translations: [Tachycardia, unspecified] Onset: 2 08-15-2022 Episodic Contraceptive and procreative management (3 sources) Contraception ; Translations: [Encounter for surveillance of injectable contraceptive] Onset: 3 06-14-2023 Episodic Endometriosis (15 sources) Endometriosis (clinical); Translations: [Endometriosis, unspecified] Onset: 1 05-19-2021 Chronic Genitourinary symptoms and ill-defined conditions (14 sources) Urge incontinence of urine; Translations: [Urge incontinence] Onset: 1 05-19-2021 Chronic Headache; including migraine (3 sources) Migraine; Translations: [Migraine, unspecified, not intractable, without status migrainosus] Onset: 3 09-04-2023 Chronic Immunizations and screening for infectious disease (3 sources) Other specified abnormal immunological findings in serum; Translations: [Encounter for screening for infections with a predominantly sexual mode of transmission] Onset: 3 Episodic Other female genital disorders (4 sources) Vulvodynia; Translations: [Vulvodynia, unspecified] Chronic Other female genital disorders (1 source) Other specified dyspareunia; Translations: [Other specified dyspareunia] Onset: 3 Chronic Other gastrointestinal disorders (2 sources) Celiac disease; Translations: [Celiac disease] 04-11-2023 Chronic Other gastrointestinal disorders (1 source) Irritable bowel syndrome; Translations: [Mixed irritable bowel syndrome] 04-11-2023 Chronic Other gastrointestinal disorders (1 source) Celiac disease; Translations: [Celiac disease] Onset: 3 Chronic Other gastrointestinal disorders (1 source) Mixed irritable bowel syndrome; Translations: [Irritable bowel syndrome with both constipation and diarrhea] Onset: 3 Chronic Other gastrointestinal disorders (1 source) Abdominal bloating; Translations: [Abdominal distension (gaseous)] 04-11-2023 Episodic Other screening for suspected conditions (not mental disorders or infectious disease) (1 source) Encounter for screening for malignant neoplasm of cervix; Translations: [Encounter for screening for malignant neoplasm of cervix] Onset: 3 Episodic Pancreatic disorders (not diabetes) (3 sources) Chronic pancreatitis; Translations: [Other chronic pancreatitis] Onset: 3 09-04-2023 Chronic Pleurisy; pneumothorax; pulmonary collapse (1 source) Pleurisy; Translations: [Pleurisy] Onset: 3 Episodic Residual codes; unclassified (1 source) Nicotine-filled electronic cigarette user; Translations: [Tobacco use] 06-14-2023 Episodic Substance-related disorders (3 sources) Nicotine dependence, other tobacco product, uncomplicated; Translations: [Nicotine dependence, unspecified, uncomplicated] Onset: 3 09-04-2023 Chronic Unclassified (1 source) Unknown / UNK(Unknown) Onset: 8 Urinary tract infections (18 sources) Chronic interstitial cystitis; Translations: [Interstitial cystitis (chronic) without hematuria] Onset: 1 Chronic Past or Other Problems Problem Classification Problem Date Documented Da te Episodic/Chronic Abdominal pain (14 sources) Chronic pelvic pain of female; Translations: [Pelvic and perineal pain] Onset: 05-19-2021 05-19-2021 Episodic Administrative/social admission (3 sources) Patient encounter status; Translations: [Dietary counseling and surveillance] Onset: 06-14-2023 04-11-2023 Episodic Gastrointestinal hemorrhage (1 source) Melena; Translations: [Bloody stools] Onset: 10-28-2022 Episodic Genitourinary symptoms and ill-defined conditions (14 sources) Increased frequency of urination; Translations: [Frequency of micturition] Onset: 05-19-2021 05-19-2021 Episodic Other gastrointestinal disorders (1 source) Abdominal distension (gaseous); Translations: [Postprandial bloating] Onset: 04-10-2023 Episodic Residual codes; unclassified (1 source) Family history of other endocrine, nutritional and metabolic diseases; Translations: [Family history of Stephon thyroiditis] Onset: 04-10-2023 Episodic Unclassified (1 source) R10.9 Onset: 10-27-2017 Results Test Name Value Interpretation Reference Range Facil ity Vital Signs Date Time Vital Sign Value Performing Clinician Facility 06-14-2023 13:51-0400 Body height 154.9 cm Loly Rosario APRN.CNM Work Phone: [facility] 06-14-2023 13:51-0400 Body weight 53.25 kg Loly Rosario APRN.CNM Work Phone: [facility] 06-14-2023 13:51-0400 Diastolic blood pressure 62 mm[Hg] Loly Rosario APRN.CNM Work Phone: [facility] 06-14-2023 13:51-0400 Systolic blood pressure 100 mm[Hg] Loly Rosario APRN.CNM Work Phone: [facility] 06-05-2023 06:54-0400 Body temperature 98.06 [degF] NAINA MIRELES MD [facility] 06-05-2023 06:54-0400 Diastolic Blood Pressure Non-Invasive 81 1 NAINA MIRELES MD [facility] 06-05-2023 06:54-0400 Heart rate 92 /min NAINA MIRELES MD [facility] 06-05-2023 06:54-0400 Respiratory rate 16 /min NAINA MIRELES MD [facility] 06-05-2023 06:54-0400 Systolic Blood Pressure Non-Invasive 122 1 NAINA MIRELES MD [facility] 09-05-2022 08:14-0500 Body height 154.9 cm Tomas Reddy MD Work Phone: [facility] 09-05-2022 08:14-0500 Body weight 47.63 kg Tomas Reddy MD Work Phone: [facility] 09-05-2022 08:14-0500 Diastolic blood pressure 71 mm[Hg] Tomas Reddy MD Work Phone: [facility] 09-05-2022 08:14-0500 Heart rate 74 /min Tomas Reddy MD Work Phone: [facility] 09-05-2022 08:14-0500 SaO2% (BldA) [Mass fraction] 98 % Tomas Reddy MD Work Phone: [facility] 09-05-2022 08:14-0500 Systolic blood pressure 109 mm[Hg] Tomas Reddy MD Work Phone: [facility] Encounters Encounter Date Encounter Type Care Provider Facility Start: 09-29-2023 End: 09-30-2023 ambulatory LEIGH ANN FELDMAN Facility:[facility] Start: 09-22-2023 End: 09-23-2023 ambulatory HARSHIL DUARTE Facility:[facility] Start: 09-04-2023 End: 09-04-2023 ambulatory LEIGH ANN JONESLIVAN Facility:[facility] Start: 09-04-2023 Telephone encounter Legih Ann pace DO Work Phone: Functional Medicine Procedures Date Procedure Procedure Detail Performing Clinician Start: 05-13-2020 PAP TEST Loly romero [employer] OFFICER.CNM Work Phone: Plan of Treatment Date Care Activity Detail Author Start: 07-10-2026 Pap Testing Pap Testing [facility] Start: 09-04-2023 End: 12-04-2023 COMPLEMENT COMPONENT 4A COMPLEMENT COMPONENT 4A Lab Routine Other chronic pancreatitis (HCC) Migraine without status migrainosus, not intractable, unspecified migraine type Expected: 09/04/2023, Expires: 12/04/2023 [facility] Work Phone: Immunizations Immunization Date Immunization Notes Care Provider Jesus ramirez 09-15-2009 influenza virus vacc ine, unspecified formulation Loly Rosario [employer] OFFICER.CNM Work Phone: [facility] Payers Date Payer Category Payer Private Health Insurance 105 [id number] 2016 Medicaid [id number] 2016 Medicaid [id number] 2016 Medicaid [id number] 1997 Unknown [id number] 2.. [id number] 1997 Unknown [id number] 2.. [id number] 1997 Unknown [id number] 2.. [id number] 1997 Unknown [id number] 2.. [id number] Social History Date Type Detail [facility] Start: 1995 Sex Assigned At Not on file [facility] Start: 07-21-2020 End: 09-05-2022 Tobacco smoking status NHIS Never smoked tobacco [facility] Start: 07-21-2020 End: 09-05-2022 Tobacco use and exposure User of smokeless tobacco [facility] Start: 05-19-2021 End: 07-10-2023 Alcohol intake Current drinker of alcohol (finding) [facility] Start: 07-21-2020 History SDOH Alcohol Frequency 1 [facility] Start: 07-21-2020 History SDOH Alcohol Comment socially [facility] Start: 09-05-2022 Tobacco Comment Vaping [facility] Start: 08-26-2022 End: 09-05-2022 Exposure to SARS-CoV-2 (event) Not sure [facility] Start: 07-21-2020 End: 04-03-2023 History of Social function [facility] Start: 07-21-2020 End: 04-03-2023 Alcohol Use Disorder Identification Test - Consumption [AUDIT-C] [facility] How often to you hav e a drink containing alcohol? Never [facility] Average Number of Drinks Not on file [facility] Tobacco smoking status No Smokin g Status Entered [facility] Sex Assigned At [facility] Functional Status Date Assessment Result Facility 06-05-2023 Functional Status ID band on, Call device within reach, Bed in low position, Wheels locked, Upper/Half-Length side-rails up, Bedside Cart Locked [facility] Mental Status Date Assessment Result Facility 06-05-2023 Mental Status Oriented x 4 [facility] Clinical Notes 05-06-2022 to 09-22-2023 Telephone Encounter - Keron Burnham MA - 09/04/2023 3:37 PM ESTAddendum Note - Keron Burnham MA - 09/04/2023 2:38 PM ESTAddendum Note - Keron Burnham MA - 09/04/2023 2:38 PM ESTPatient Instructions Note Date & Type Note Facility 09-22-2023 Note HNO ID: [id number] Author: Suha Adkins RN Service: ? Author Type: Registered Nurse Type: Progress Notes Filed: 09/22/2023 4:09 PM Note Text: Patient identified by name and date of . Nasir Wilkerson is here for a Depo Provera injection. Patient brought medication. Date last injected: 06/30/23 Depo-Provera, 150 mg, administered IM right upper quadrant gluteus, Lot # [id number], expiration date 01/29/2025. Depo-Provera was given without incident. Date of last menses: No LMP recorded (lmp unknown). Patient has had an injection. Irregular bleeding - No Menses ceased - Yes STD prevention discussed: Yes Patient instructed to return to clinic on 12 weeks [email or web address] Provider Dr. Patten was present in office at time of injection. Suha Adkins RN [facility] 09-04-2023 Miscellaneous Notes Contacted the provided number for the [email or web address] to clarify the [facility] fax number. They informed me that they do not have a [facility] facility. Patient is notified through the . Spoke with Elizabeth. Keron Burnham MA documented in this encounter [facility] 09-04-2023 Note HNO ID: [id number] Author: Leigh Ann Feldman DO Service: ? Author Type: Physician Type: Progress Notes Filed: 09/04/2023 2:31 PM Note Text: Follow-up Virtual Visit I have communicated my name and active licensure. The patient?s identity and physical location were verified at the time of this visit. Either the patient or their legal traveling sales representative has been informed of the risks and benefits of -- and alternatives to -- treatment through a remote evaluation and consents to proceed with the evaluation remotely. Patient: Nasir Wilkerson There is no height or weight on file to calculate BMI. Resting Metabolic Rate: 1226 Waist measurement: No waist measurement recorded. BP: ALLERGIES No Known Allergies Current Outpatient Medications on File Prior to Visit Medication Sig amitriptyline (ELAVIL) 10 mg tablet Take 30 mg by mouth once daily. medroxyPROGESTERone (DEPO-PROVERA) 150 mg/mL Inject 1 mL intramuscularly every 12 weeks. metoprolol succinate ER (TOPROL XL) 25 mg 24 hr tablet 25 mg once daily. medroxyPROGESTERone (DEPO-PROVERA) 150 mg/mL injection INJECT 1 DOSE INTRAMUSCULARLY EVERY 90 DAYS (IN OFFICE) Current Facility-Administered Medications on File Prior to Visit Medication medroxyPROGESTERone 150 mg injection (DEPO-PROVERA) PAST MEDICAL HISTORY Diagnosis Date Celiac disease 2019 Endometriosis Gastritis Other specified cardiac arrhythmias Palpitations Paroxysmal supraventricular tachycardia PAST SURGICAL HISTORY Procedure Laterality Date DILATION AND CURETTAGE 2019 PAST SURGICAL HISTORY OF 2011 TONSILLECTOMY Social History Tobacco Use Smoking status: Never Smokeless tobacco: Current Tobacco comments: Vaping Vaping Use Vaping Use: current everyday user Substances: Nicotine Substance Use Topics Alcohol use: Yes Comment: socially Drug use: Never Functional Medicine Timeline PHQ-9 Score: 7 (03/29/2023 10:48 PM) (0-4) minimal depression (5-9) mild depression (10-14) moderate depression (15-19) moderately severe depression (20-27) severe depression PROMIS Global Health - (T-Scores - the mean of general population = 50. Five points is a clinically meaningful difference.) 10/24/2022 03/29/2023 Physical T-Score - 44.9 Mental T-Score 45.8 45.8 Subjective: Initial Visit Dr. Valadez 04/07/23 Patient is in [place], [place] today This consultation was requested by Dr. Harshil Duarte. My final recommendations will be communicated to the referring physician by way of the shared medical record for internal providers. Thank you for the opportunity to participate in the care of your patient, Nasir Wilkerson, whom I saw in [facility]. Primary concern: Find root cause of autoimmune markers, fatigue, chronic pancreatitis HPI: Recurrent strep throat as a kid with tonsillectomy age 17 She had recurrent abdominal pain growing up with blood in stool now more intermittent Diagnosed with IBS as a child She reports she had her first menstrual period age 10, she would vomits and have low grade fever during menses Age 22 she had surgery for endometriosis and heavy, painful periods She gets Dept Provera so not getting menstrual period helpful Growing up had chronic symptoms of bladder infections but did not have positive urine culture. She had surgery on her bladder a few years ago in 20s for IC and water treatment. She had kidney stone a year ago which passed spontaneously. She started to feel a sensation of crawling under her skin. Blood work found a positive celiac serology. She had pancreatitis age 20 and reports titers have been up since that time. She had similar episode last year. She was not hospitalized for either episode. She inadvertently ate gluten at a green party a year ago and had abdominal pain with pancreatitis a week later as well as COVID-19 infection 2021 Cardiology work up for palpitations. Sinus tachycardia found and take metoprolol nightly. EGD and Colonoscopy 2012, wnl EGD age 21 gastritis SMART Pill age 27 villous atrophy Per chart review had TTG, IgG 56 with normal TTG, IgA. It was concluded she had celiac disease but she was already on a gluten free diet so EGD was not pursued at the time. She had extensive GI work up with concerns for diffuse thickening of the pancreas with concerns for autoimmune etiology then referred to rheumatology. She was getting chronic headaches last year and reports MRI brain was normal. Started on preventative treatment with amitriptyline. Headaches are less frequent and severe but also still up to 6 days a week. She has been in counseling off and on since childhood. First for her father's when she was ago 12 and then for other life stressors. [facility] Physician Name : Harshil Duarte [employer] about our practice from : Referral from [facility] Goals What (more content not included)... [facility] 09-04-2023 Miscellaneous Notes Addended by: KERON BURNHAM on: 09/04/2023 02:38 PM Modules accepted: Orders Addended by: KERON BURNHAM on: 09/04/2023 02:38 PM Modules accepted: Orders documented in this encounter [facility] 09-04-2023 Instructions Leigh Ann Feldman DO - 09/04/2023 2:30 PM EST Plan/Instructions/Resources: Diagnoses and all orders for this visit: Celiac disease - FM GI EFFECTS, 1 STOOL SPECIMEN - PANC ELASTASE, FECAL Other chronic pancreatitis (HCC) - FM GI EFFECTS, 1 STOOL SPECIMEN - PANC ELASTASE, FECAL - COMPLEMENT COMPONENT 4A; Future Nicotine dependence, uncomplicated, unspecified nicotine product type - CONSULT FOR ACUPUNCTURE; Future Migraine without status migrainosus, not intractable, unspecified migraine type - FIBRINOGEN; Future - COMPLEMENT COMPONENT 4A; Future [facility]: [address] [place], [address] Future Plans: Follow up: Please schedule a follow up visit with the following Caregivers: Provider: 8weeks and Roll Slicing Machine Tender: 1 weeks LIFESTYLE PRESCRIPTION Functional Nutrition: Personalized Elimination Food Plan Sleep: Sleep goal for most adults is a minimum of 7-9 hours nightly. Exercise Prescription: Numerous studies confirm the benefits of regular moderate aerobic exercise (walking, swimming, elliptical machine, cycling, etc.) for 30 min 5 days per week (150 min goal). Stress Management: 1) Please look into this Heart Rate Variability BioFeedback Tool (www.heartmath.org). 2) A regular, daily meditation practice of at least 15-20 minutes will change your brain--as well as your genes! Behavioral Health Therapist: If I recommended counseling or individual therapy, please schedule an individual appointment with our Functional [facility] Behavioral Health Therapist , Colby Monterroso, after your visit today. The Behavioral Health Therapist helps patients identify and understand feelings and behaviors, experience the process of making positive change, and gain healthy coping skills. Health Coaching: Please consider scheduling with our [facility] health coaches for a phone or virtual visit for accountability, goal setting and help with behavior mold changer the next 6-8 weeks to be successful with your goals. [phone]. Smart phone apps to begin a meditative practice: Headspace (free for first 10 days) Insight Meditation Timer- (Free)-Great all-around ariadna to use for guided meditations of many different types and lengths or just to use as a tool to time and track your meditation practice. This is my absolute favorite! Calm- (Free) Walking Meditations-($1.99)- Get your walk AND meditation done together. A good way to start out for individuals who feel they just can't sit still to begin a meditative practice. documented in this encounter [facility] 09-04-2023 Miscellaneous Notes Contacted the patient to let her know Dr. Feldman is on the zoom, so was the patient. But they couldn't start the appointment. Notified the patient the provider will give her a call instead, per Dr. Feldman request. Keron Burnham MA documented in this encounter [facility] 09-04-2023 History of Present illness Narrative Follow-up Virtual Visit I have communicated my name and active licensure. The patient s identity and physical location were verified at the time of this visit. Either the patient or their legal traveling sales representative has been informed of the risks and benefits of -- and alternatives to -- treatment through a remote evaluation and consents to proceed with the evaluation remotely. Patient: Nasir Wilkerson There is no height or weight on file to calculate BMI. Resting Metabolic Rate: 1226 Waist measurement: No waist measurement recorded. BP: ALLERGIES No Known Allergies Current Outpatient Medications on File Prior to Visit Medication Sig amitriptyline (ELAVIL) 10 mg tablet Take 30 mg by mouth once daily. medroxyPROGESTERone (DEPO-PROVERA) 150 mg/mL Inject 1 mL intramuscularly every 12 weeks. metoprolol succinate ER (TOPROL XL) 25 mg 24 hr tablet 25 mg once daily. medroxyPROGESTERone (DEPO-PROVERA) 150 mg/mL injection INJECT 1 DOSE INTRAMUSCULARLY EVERY 90 DAYS (IN OFFICE) Current Facility-Administered Medications on File Prior to Visit Medication medroxyPROGESTERone 150 mg injection (DEPO-PROVERA) PAST MEDICAL HISTORY Diagnosis Date Celiac disease 2019 Endometriosis Gastritis Other specified cardiac arrhythmias Palpitations Paroxysmal supraventricular tachycardia PAST SURGICAL HISTORY Procedure Laterality Date DILATION & CURETTAGE 2018 PAST SURGICAL HISTORY OF 2010 TONSILLECTOMY Social History Tobacco Use Smoking status: Never Smokeless tobacco: Current Tobacco comments: Vaping Vaping Use Vaping Use: current everyday user Substances: Nicotine Substance Use Topics Alcohol use: Yes Comment: socially Drug use: Never Functional Medicine Timeline PHQ-9 Score: 7 (03/29/2023 10:48 PM) (0-4) minimal depression (5-9) mild depression (10-14) moderate depression (15-19) moderately severe depression (20-27) severe depression PROMIS Global Health - (T-Scores - the mean of general population = 50. Five points is a clinically meaningful difference.) 10/24/2022 03/29/2023 Physical T-Score - 44.9 Mental T-Score 45.8 45.8 Subjective: Initial Visit Dr. Valadez 04/07/23 Patient is in [place], [place] today This consultation was requested by Dr. Harshil Duarte. My final recommendations will be communicated to the referring physician by way of the shared medical record for internal providers. Thank you for the opportunity to participate in the care of your patient, Nasir Wilkerson, whom I saw in [facility]. Primary concern: Find root cause of autoimmune markers, fatigue, chronic pancreatitis HPI: Recurrent strep throat as a kid with tonsillectomy age 17 She had recurrent abdominal pain growing up with blood in stool now more intermittent Diagnosed with IBS as a child She reports she had her first menstrual period age 10, she would vomits and have low grade fever during menses Age 22 she had surgery for endometriosis and heavy, painful periods She gets Dept Provera so not getting menstrual period helpful Growing up had chronic symptoms of bladder infections but did not have positive urine culture. She had surgery on her bladder a few years ago in 20s for IC and water treatment. She had kidney stone a year ago which passed spontaneously. She started to feel a sensation of crawling under her skin. Blood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 containing substance - ICD9: 305.1, ICD10: Z72.0 4. Paroxysmal supraventricular tachycardia (HCC) - ICD9: 427.0, ICD10: I47.1 5. Palpitations - ICD9: 785.1, ICD10: R00.2 6. Endometriosis - ICD9: 617.9, ICD10: N80.9 All contraceptive options were discussed with the patient. R/B/A explained. All questions answered. Pt understands risks including but not limited to increased risk of breast cancer, blood clots and stroke. Patient desires to continue DEPO PROVERA injections. RX sent. RTO- 3 weeks for annual with PAP and DEPO injection Loly Rosario APRN.CNM documented in this encounter [facility] 06-05-2023 Hospital Discharge instructions Patient Education 06/05/2023 07:32:46 Pleurisy Pleurisy You have pain in your chest. Your healthcare provider has told you that you have pleurisy, or pleuritis. Pleurisy is swelling (inflammation) of the pleura. The pleura are two layers of thin smooth tissue that surround the lungs and line the chest. What are the symptoms of pleurisy? Pleurisy is inflammation of the pleura. The pleura cover the lungs and line the chest. Pleurisy usually causes sharp chest pain. It is usually worse when you take a deep breath, cough, or sneeze. What causes pleurisy? Many things can cause pleurisy. A common cause is a viral infection like the flu or pneumonia. Serious lung problems that can cause it include: A blood clot in the lung (pulmonary embolism) Air between the pleura (pneumothorax) Serious heart problems that can cause pleurisy include: Heart attack Inflammation of the covering of the heart (pericarditis) How is pleurisy diagnosed? Your healthcare provider examines you and asks you about your symptoms and health history. He or she will first check you for the serious causes of chest pain. You may have: Lab tests Imaging tests such as chest X-ray, CT scan, or ultrasound ECG How is pleurisy treated? Treatment depends on what is causing the pleurisy. Serious conditions are treated in the hospital. You may need medicines to decrease the inflammation and pain. Call 911 Call 911 if any of these occur: Trouble breathing Chest pain that gets worse Call your healthcare provider Call your healthcare provider right away if you have: A fever of 100.4 F (38 C) or higher, or as directed by your healthcare provider [id number] [employer]. [address] [place] [address], [place] [address]. All rights reserved. This information is not intended as a substitute for professional medical care. Always follow your healthcare professional's instructions. Follow Up Care 06/05/2023 06:49:25 With:LAURA PRICE DO Address: [address] [place] [id number] [phone] When:2-4 days [facility] 06-05-2023 Note Discharge Instructions Thank you for allowing [facility] to assist you with your healthcare needs. The following is important discharge information regarding your hospital visit. Diagnosis from Today's Visit Chest pain with deep breathing Pleurisy What to Do Next Instructions from Your Care Team No qualifying data available. Post Acute Orders No qualifying data available. You Need to Schedule the Following Appointments Follow Up with LAURA PRICE DO When Within 2-4 days Where: [address] [place] [id number] [phone] Allergies NKA Medications Please ask your primary doctor or pharmacist before taking any other medication not listed, including over the counter drugs, herbal medications, vitamins and or supplements as they may interact with your home medications. What How Much When Why Instructions Last Dose New acetaminophen-hydrocodone (Bethany 325- 5 mg oral tablet) 1 tab(s) by mouth Every 6 hours Pleurisy Duration: 2 Days Printed Prescription New predniSONE (predniSONE 20 mg oral tablet) 1 tab(s) by mouth Every day Duration: 5 Days Printed Prescription Please take this list to your next doctor s visit. Bring all medications you take, including over the counter medications, herbals and other supplements with you to your doctor s visit. Patients and families are reminded to discard old lists and to update any records with all medication providers or retail pharmacies. Medication Leaflets prednisone (PRED ni sone) Sarah What is the most important information I should know about prednisone? You should not use prednisone if you have a fungal infection anywhere in your body. You should not stop using prednisone suddenly. Follow your doctor's instructions about tapering your dose. What is prednisone? Prednisone is a steroid that reduces inflammation in the body, and also suppresses your immune system. Prednisone is used to treat many different conditions such as hormonal disorders, skin diseases, arthritis, lupus, psoriasis, allergic conditions, ulcerative colitis, Crohn's disease, eye diseases, lung diseases, asthma, tuberculosis, blood cell disorders, kidney disorders, leukemia, lymphoma, multiple sclerosis, organ transplant rejection, swelling from a brain tumor or injury. Prednisone may also be used for purposes not listed in this medication guide. What should I discuss with my healthcare provider before taking prednisone? You should not use prednisone if you are allergic to it, or if you have a fungal infection anywhere in your body. Steroid medication can weaken your immune system, making it easier for you to get an infection or worsening an infection you already have. Tell your doctor about any illness or infection you've had within the past several weeks. Tell your doctor if you have ever had: heart problems, high blood pressure, or a heart attack; glaucoma or cataracts; herpes infection of the eyes; past or present tuberculosis; a parasite infection that causes diarrhea (such as threadworms); any illness that causes diarrhea; underactive thyroid; diabetes; a stomach ulcer, diverticulitis; a colostomy or ileostomy; osteoporosis or low bone mineral density (steroid medication can increase your risk of bone loss); low levels of calcium or potassium in your blood; cirrhosis or other liver disease; mental illness or psychosis; or a muscle disorder such as myasthenia gravis. Long-term use of steroids may lead to bone loss (osteoporosis), especially if you smoke or drink alcohol, if you do not exercise, or if you do not get enough vitamin D or calcium in your diet. It is not known whether this medicine will harm an unborn baby. Tell your doctor if you are or plan to become . You should not breastfeed while using prednisone. How should I take prednisone? Follow all directions on your prescription label and read all medication guides or instruction sheets. Your doctor may occasionally change your dose. Use the medicine exactly as directed. Prednisone is taken daily or every other day, depending on the condition being treated. You may need to take the medicine at a certain time of day. Follow your doctor's instructions about when and how often to take this medicine. Take with food if prednisone upsets your stomach. Measure liquid medicine carefully. Use the dosing syringe provided, or use a medicine dose-measuring device (not a kitchen spoon). Swallow the delayed-release tablet whole and do not crush, chew, or break it. Prednisone can weaken (suppress) your immune system, and you may get an infection more easily. Call your doctor if you have signs of infection (fever, weakness, cold or flu symptoms, skin sores, diarrhea, frequent or recurring illness). If you have major surgery or a severe injury or infection, your prednisone dose needs may change. Make sure any doctor caring for you knows you are using this medicine. If you use this medicine long-term, you may need medical tests and vision exams. In case of emergency, wear or carry medical identification to let others know you use a steroid. You should not stop using prednisone suddenly. Follow your doctor's instructions about tapering your dose. Store at room temperature away from moisture, heat, and light. What happens if I miss a dose? Take the medicine as soon as you can, but skip the missed dose if it is almost time for your next dose. Do not take two doses at one time. What happens if I overdose? Seek emergency medical attention or call the Poison Help line at . High doses or long-term use of prednisone can lead to thinning skin, easy bruising, changes in body fat (especially in your face, neck, back, and waist), increased acne or facial hair, menstrual problems, impotence, or loss of interest in sex. What should I avoid while taking prednisone? Do not receive a 'live' vaccine while using prednisone. The vaccine may not work as well and may not fully protect you from disease. Live vaccines include measles, mumps, rubella (MMR), polio, rotavirus, typhoid, yellow fever, varicella (chickenpox), zoster (shingles), and nasal flu (influenza) vaccine. Avoid being near people who are sick or have infections. Call your doctor for preventive treatment if you are exposed to chickenpox or measles. These conditions can be serious or even fatal in people who are using steroid medicine. Avoid drinking alcohol. What are the possible side effects of prednisone? Get emergency medical help if you have signs of an allergic reaction: hives; difficult breathing; swelling of your face, lips, tongue, or throat. Call your doctor at once if you have: muscle pain or weakness; blurred vision, tunnel vision, eye pain, or seeing halos around lights; severe depression, changes in personality, unusual thoughts or behavior; bloody or tarry stools, coughing up blood or vomit that looks like coffee grounds; swelling, rapid weight gain, feeling short of breath; irregular heartbeats; severe headache, pounding in your neck or ears; decreased adrenal gland hormones--muscle weakness, tiredness, diarrhea, nausea, menstrual changes, skin discoloration, craving salty foods, and feeling light-headed; or low potassium level--leg cramps, constipation, irregular heartbeats, fluttering in your chest, increased thirst or urination, numbness or tingling, muscle weakness or limp feeling. Prednisone can affect growth in children. Tell your doctor if your child is not growing at a normal rate while using this medicine. Common side effects may include: weight gain (especially in your face or your upper back and torso); increased appetite; mood changes, trouble sleeping; changes in your menstrual periods; problems with memory or thought; muscle or joint pain; weakness; headache, dizziness, spinning sensation; nausea, bloating, loss of appetite; slow wound healing; or acne, increased sweating, thinning skin, bruising, pinpoint spots under your skin. This is not a complete list of side effects and others may occur. Call your doctor for medical advice about side effects. You may report side effects to FDA at 8-017-JFV-4125. What other drugs will affect prednisone? Sometimes it is not safe to use certain medications at the same time. Some drugs can affect your blood levels of other drugs you take, which may increase side effects or make the medications less effective. Tell your doctor about all your current medicines. Many drugs can affect prednisone, especially: bupropion; cyclosporine; digoxin; ketoconazole; an antibiotic; control pills or hormone replacement therapy; a diuretic or 'water pill'; insulin or oral diabetes medicine; a blood thinner--warfarin, Coumadin, Jantoven; or NSAIDs (nonsteroidal anti-inflammatory drugs)--aspirin, ibuprofen (Advil, Motrin), naproxen (Aleve), celecoxib, diclofenac, indomethacin, meloxicam, and others. This list is not complete and many other drugs may affect prednisone. This includes prescription and [id number] medicines, vitamins, and herbal products. Not all possible drug interactions are listed here. Where can I get more information? Your pharmacist can provide more information about prednisone. Remember, keep this and all other medicines out of the reach of children, never share your medicines with others, and use this medication only for the indication prescribed. Every effort has been made to ensure that the information provided by [employer]') is accurate, up-to-date, and complete, but no guarantee is made to that effect. Drug information contained herein may be time sensitive. [employer] information has been compiled for use by healthcare practitioners and consumers in the [place] and therefore [employer] does not warrant that uses outside of the [place] are appropriate, unless specifically indicated otherwise. [employer] drug information does not endorse drugs, diagnose patients or recommend therapy. [employer] drug information is an informational resource designed to assist licensed healthcare practitioners in caring for their patients and/or to serve consumers viewing this service as a supplement to, and not a substitute for, the expertise, skill, knowledge and judgment of healthcare practitioners. The absence of a warning for a given drug or drug combination in no way should be construed to indicate that the drug or drug combination is safe, effective or appropriate for any given patient. [employer] does not assume any responsibility for any aspect of healthcare administered with the aid of information [employer] provides. The information contained herein is not intended to cover all possible uses, directions, precautions, warnings, drug interactions, allergic reactions, or adverse effects. If you have questions about the drugs you are taking, check with your doctor, nurse or pharmacist. Copyright 7074-6855 [employer]. Version: 10.. Revision Date: 12/27/2018. acetaminophen and hydrocodone (a SEET a MIN oh fen and farzaneh droe KOE done) Lortab Elixir, Verdrocet What is the most important information I should know about acetaminophen and hydrocodone? MISUSE OF OPIOID MEDICINE CAN CAUSE ADDICTION, OVERDOSE, OR . Keep the medication in a place where others cannot get to it. Taking opioid medicine during may cause life-threatening withdrawal symptoms in the . Fatal side effects can occur if you use opioid medicine with alcohol, or with other drugs that cause drowsiness or slow your breathing. Stop taking this medicine and call your doctor right away if you have skin redness or a rash that spreads and causes blistering and peeling. What is acetaminophen and hydrocodone? Acetaminophen and hydrocodone is a combination medicine used to relieve moderate to severe pain. Acetaminophen and hydrocodone contains an opioid medicine, and may be habit-forming. Acetaminophen and hydrocodone may also be used for purposes not listed in this medication guide. What should I discuss with my healthcare provider before taking acetaminophen and hydrocodone? You should not use this medicine if you are allergic to acetaminophen or hydrocodone, or if you have: severe asthma or breathing problems; or a blockage in your stomach or intestines. Tell your doctor if you have ever had: breathing problems, sleep apnea (breathing stops during sleep); liver disease; a drug or alcohol addiction; kidney disease; a head injury or seizures; urination problems; or problems with your thyroid, pancreas, or gallbladder. If you use opioid medicine while you are , your baby could become dependent on the drug. This can cause life-threatening withdrawal symptoms in the baby after it is born. Babies born dependent on opioids may need medical treatment for several weeks. Ask a doctor before using opioid medicine if you are . Tell your doctor if you notice severe drowsiness or slow breathing in the nursing baby. How should I take acetaminophen and hydrocodone? Follow all directions on your prescription label. Never take this medicine in larger amounts, or for longer than prescribed. An overdose can damage your liver or cause . Tell your doctor if you feel an increased urge to use more of this medicine. Never share this medicine with another person, especially someone with a history of drug abuse or addiction. MISUSE CAN CAUSE ADDICTION, OVERDOSE, OR . Keep the medicine in a place where others cannot get to it. Selling or giving away this medicine is against the law. Measure liquid medicine carefully. Use the dosing syringe provided, or use a medicine dose-measuring device (not a kitchen spoon). If you need surgery or medical tests, tell the doctor ahead of time that you are using this medicine. You should not stop using this medicine suddenly. Follow your doctor's instructions about tapering your dose. Store at room temperature away from moisture and heat. Keep track of your medicine. You should be aware if anyone is using it improperly or without a prescription. Do not keep leftover opioid medication. Just one dose can cause in someone using this medicine accidentally or improperly. Ask your pharmacist where to locate a drug take-back disposal program. If there is no take-back program, flush the unused medicine down the toilet. What happens if I miss a dose? Since this medicine is used for pain, you are not likely to miss a dose. Skip any missed dose if it is almost time for your next dose. Do not use two doses at one time. What happens if I overdose? Seek emergency medical attention or call the Poison Help line at . An overdose of this medicine can be fatal, especially in a child or other person using the medicine without a prescription. Overdose symptoms may include nausea, vomiting, sweating, severe drowsiness, pinpoint pupils, slow breathing, or no breathing. Your doctor may recommend you get naloxone (a medicine to reverse an opioid overdose) and keep it with you at all times. A person caring for you can give the naloxone if you stop breathing or don't wake up. Your caregiver must still get emergency medical help and may need to perform CPR (cardiopulmonary resuscitation) on you while waiting for help to arrive. Anyone can buy naloxone from a pharmacy or local health department. Make sure any person caring for you knows where you keep naloxone and how to use it. What should I avoid while taking acetaminophen and hydrocodone? Avoid driving or operating machinery until you know how this medicine will affect you. Dizziness or drowsiness can cause falls, accidents, or severe injuries. Do not drink alcohol. Dangerous side effects or could occur. Ask a doctor or pharmacist before using any other medicine that may contain acetaminophen (sometimes abbreviated as APAP). Taking certain medications together can lead to a fatal overdose. What are the possible side effects of acetaminophen and hydrocodone? Get emergency medical help if you have signs of an allergic reaction: hives; difficulty breathing; swelling of your face, lips, tongue, or throat. Opioid medicine can slow or stop your breathing, and may occur. A person caring for you should give naloxone and/or seek emergency medical attention if you have slow breathing with long pauses, blue colored lips, or if you are hard to wake up. In rare cases, acetaminophen may cause a severe skin reaction that can be fatal. This could occur even if you have taken acetaminophen in the past and had no reaction. Stop taking this medicine and call your doctor right away if you have skin redness or a rash that spreads and causes blistering and peeling. Call your doctor at once if you have: noisy breathing, sighing, shallow breathing, breathing that stops; a light-headed feeling, like you might pass out; liver problems--nausea, upper stomach pain, tiredness, loss of appetite, dark urine, brady-colored stools, jaundice (yellowing of the skin or eyes); low cortisol levels-- nausea, vomiting, loss of appetite, dizziness, worsening tiredness or weakness; o high levels of serotonin in the body--agitation, hallucinations, fever, sweating, shivering, fast heart rate, muscle stiffness, twitching, loss of coordination, nausea, vomiting, diarrhea. Serious breathing problems may be more likely in older adults and in those who are debilitated or have wasting syndrome or chronic breathing disorders. Common side effects include: dizziness, drowsiness, feeling tired; nausea, vomiting, stomach pain; constipation; or headache. This is not a complete list of side effects and others may occur. Call your doctor for medical advice about side effects. You may report side effects to FDA at 9-700-NCP-9597. What other drugs will affect acetaminophen and hydrocodone? You may have breathing problems or withdrawal symptoms if you start or stop taking certain other medicines. Tell your doctor if you also use an antibiotic, antifungal medication, heart or blood pressure medication, seizure medication, or medicine to treat HIV or hepatitis C. Opioid medication can interact with many other drugs and cause dangerous side effects or . Be sure your doctor knows if you also use: cold or allergy medicines, bronchodilator asthma/COPD medication, or a diuretic ('water pill'); medicines for motion sickness, irritable bowel syndrome, or overactive bladder; other opioids--opioid pain medicine or prescription cough medicine; a sedative like Valium--diazepam, alprazolam, lorazepam, Xanax, Klonopin, Versed, and others; drugs that make you sleepy or slow your breathing--a sleeping pill, muscle relaxer, medicine to treat mood disorders or mental illness; drugs that affect serotonin levels in your body--a stimulant, or medicine for depression, Parkinson's disease, migraine headaches, serious infections, or nausea and vomiting. This list is not complete. Other drugs may affect acetaminophen and hydrocodone, including prescription and haxj-xmg-uomsrdl medicines, vitamins, and herbal products. Not all possible interactions are listed here. Where can I get more information? Your doctor or pharmacist can provide more information about acetaminophen and hydrocodone. Remember, keep this and all other medicines out of the reach of children, never share your medicines with others, and use this medication only for the indication prescribed. Every effort has been made to ensure that the information provided by [employer] is accurate, up-to-date, and complete, but no guarantee is made to that effect. Drug information contained herein may be time sensitive. [employer] information has been compiled for use by healthcare practitioners and consumers in the [place] and therefore [employer] does not warrant that uses outside of the [place] are appropriate, unless specifically indicated otherwise. [employer] drug information does not endorse drugs, diagnose patients or recommend therapy. [employer] drug information is an informational resource designed to assist licensed healthcare practitioners in caring for their patients and/or to serve consumers viewing this service as a supplement to, and not a substitute for, the expertise, skill, knowledge and judgment of healthcare practitioners. The absence of a warning for a given drug or drug combination in no way should be construed to indicate that the drug or drug combination is safe, effective or appropriate for any given patient. [employer] does not assume any responsibility for any aspect of healthcare administered with the aid of information [employer] provides. The information contained herein is not intended to cover all possible uses, directions, precautions, warnings, drug interactions, allergic reactions, or adverse effects. If you have questions about the drugs you are taking, check with your doctor, nurse or pharmacist. Copyright 0128-4802 [employer] - Financial [employer]conciliation. Version: 19.. Revision Date: 05/22/2023. Education Materials Pleurisy You have pain in your chest. Your healthcare provider has told you that you have pleurisy, or pleuritis. Pleurisy is swelling (inflammation) of the pleura. The pleura are two layers of thin smooth tissue that surround the lungs and line the chest. What are the symptoms of pleurisy? Pleurisy is inflammation of the pleura. The pleura cover the lungs and line the chest. Pleurisy usually causes sharp chest pain. It is usually worse when you take a deep breath, cough, or sneeze. What causes pleurisy? Many things can cause pleurisy. A common cause is a viral infection like the flu or pneumonia. Serious lung problems that can cause it include: A blood clot in the lung (pulmonary embolism) Air between the pleura (pneumothorax) Serious heart problems that can cause pleurisy include: Heart attack Inflammation of the covering of the heart (pericarditis) How is pleurisy diagnosed? Your healthcare provider examines you and asks you about your symptoms and health history. He or she will first check you for the serious causes of chest pain. You may have: Lab tests Imaging tests such as chest X-ray, CT scan, or ultrasound ECG How is pleurisy treated? Treatment depends on what is causing the pleurisy. Serious conditions are treated in the hospital. You may need medicines to decrease the inflammation and pain. Call 911 Call 911 if any of these occur: Trouble breathing Chest pain that gets worse Call your healthcare provider Call your healthcare provider right away if you have: A fever of 100.4 F (38 C) or higher, or as directed by your healthcare provider [phone] [employer]. [address] [place] [address]. All rights reserved. This information is not intended as a substitute for professional medical care. Always follow your healthcare professional's instructions. Additional Information VACCINATE! IT SAVES LIVES! Members of the community who have not yet received the COVID-19 vaccine and would like to receive it can visit one of [facility] vaccine clinics. There are many vaccine clinic locations within the [facility]. For locations and available times, please visit [email or web address] It is important to note that some COVID mobile vaccine clinics are held outdoors and may be canceled in rainy or stormy conditions. To learn more about pediatric vaccinations (ages 5-11), we invite you to visit the [facility] webpage. [email or web address] [email or web address] To learn more about the COVID-19 vaccine, we invite you to visit the CDC website for a list of frequently asked questions. https://www.cdc.gov/coronavirus/-ncov/vaccines/faq.html [facility] Patient Portal Access Instructions: Stay connected with your healthcare team and access your personal medical information anytime with the [facility] Patient Portal. If you would like a full copy of your medical records please contact the [facility] Medical Records Department Monday through Monday between 8a.m. and 4:30p.m. Please follow the directions below to access the portal: 1.Access the email account you provided upon registration to the [facility].2.Look for an invitation email from [facility].3.Open the email and access the invitation link: Accept Invitation to [facility].Fill in the required laguerre to create your account. Sign into [email or web address] with your username and password that you created in the above steps to stay up to date. You can then view a summary of results, a summary of your visits, and the ability to download your summaries to your computer or send the information securely to a physician. Remember that your healthcare information is confidential, so carefully consider who you will allow to register on the [facility] Patient Portal for access to your information. You can also access the [facility] Patient Portal on the [employer]. Simply click on Health Records under Health Data and then click on the Ami logo. HOW TO SAFELY DISPOSE OF PRESCRIPTION MEDICATIONS Please use one of the following methods to safely dispose of your unused medications. 1.Use a drug disposal kit: the drug disposal pouch allows you to safely discard your old and unused drugs. Ask your nurse to give you one when you are discharged.2.Visit a local take-back location: Many local pharmacies and police departments have programs that collect old and unwanted prescription drugs. Call your local pharmacy or go to http://bit.ly/8K6Kn8i to find one close to you.3.Make use of household items: Use cat litter or old coffee grounds to dispose medications if other options are not available. Mix your drugs with these household products, seal them in an airtight container and throw it into the garbage. Call [facility]: [phone] to be sure your drugs can be disposed of in this way. Some medicines may require a different approach.4.Never flush your medications down the toilet. IF YOU HAVE BEEN PRESCRIBED AN OPIOIDS FOR PAIN If you have been prescribed an opioid (such as hydrocodone, oxycodone or morphine), it is critical to understand the possible side effects and risks of opioid pain medications. Even when taken as directed, opioids can have several side effects including: Tolerance, meaning you might need to take more of a medication for the same pain relief. Nausea, vomiting and/or constipation. Sleepiness, dizziness, dry mouth, confusion, depression or itching. Physical dependence, meaning you have withdrawal symptoms when a medication is stopped ? this can develop within a few days. KNOW YOUR RESPONSIBILITIES It is important to know exactly how much and how often to take the opioid pain medications you are prescribed. Never take opioids in higher amounts or more often than prescribed. Do not combine opioids with alcohol or other drugs that cause drowsiness, such as benzodiazepines, also known as benzos, including diazepam and alprazolam, muscle relaxants or sleep aids. Never sell or share prescription opioids. This is illegal. Store opioids in a secure place and out of reach of others (including children, family, friends and visitors). The last page(s) of this document has been signed and retained as a CHART COPY Signatures Patient Education Materials Pleurisy Medication Leaflets prednisone, acetaminophen and hydrocodone My discharge plan and instructions have been reviewed and explained to me and I,NASIR WILKERSON understand my current condition and have read and understand these discharge instructions. I have received a written copy of the plan/instructions. If I have questions, I am aware that I should contact my doctor. 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 HISTORY: ORDERING SYSTEM PROVIDED HISTORY: Reason for Exam: pain Short of breath. FINDINGS: The heart size and mediastinal contours are normal. There is no lung infiltrate or edema. No pneumothorax or pleural fluid is present. The skeletal structures are unremarkable. IMPRESSION: No radiographic abnormality of the chest. Interpreted by: Erwin Rivera MD Preliminary Report By: Erwin Rivera MD Electronically signed By Erwin Rivera MD Dictated Date: 06/05/2023 7:21:26 AM Prelim Date: 06/05/2023 7:22:04 AM Sign Date: 06/05/2023 7:22:04 AM Ordering Provider: [facility] 06-01-2023 Note HNO ID: [id number] Author: Ginny Morales RN Service: ? Author Type: ? Type: Progress Notes Filed: 06/01/2023 5:40 PM Note Text: Received outside medical records from [place] [employer]. [facility] 06-01-2023 History of Present illness Narrative Received outside medical records from [place] [employer]. 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 Records in [facility] area. documented in this encounter [facility] 04-10-[address] - 04/10/2023 6:01 PM EDT Images from the original note were not included. [facility] FOLLOW UP NUTRITION INSTRUCTIONS We recommend scheduling your Follow-up appointment at the end of your initial appointment. Nutrition Follow-up: In 4-6 weeks with Functional Medicine Registered Dietitian (Mindy Rod Miranda, Sarah or Ana) Preparation for Follow-up: Complete a 3 day food record using the Diet, Nutrition and Lifestyle Journal from the Functional Nutrition Portal If follow-up is virtual: scan into SplitGigs or send to before joining your appointment If follow-up is in person: bring to your appointment Your Prescribed Nutrition Plan: Plan from the start. Access the Functional Nutrition Portal in [employer] to access your food plan comprehensive guide, weekly recipe facility planner, and food list. Shop for foods and ingredients from the food list. Follow your initial nutrition prescription for 3-8 weeks Your Food Plan: ELIMINATION No Modifier Elimination Diet The Elimination Food Plan removes common foods that may be causing symptoms and, with reintroduction, helps patients identify the foods that may be triggering their symptoms. Food Plan Principles Identify Food Triggers Reduce Inflammation Support Healthy Microbiome No calorie restriction Promote body awareness to food As needed, gradually eliminate caffeine, alcohol, and sugar before you start the full plan. Include Avoid Fruits Healthy oils Lean meats Legumes Nuts Seeds Vegetables Non-starchy vegetables Gluten Dairy Eggs Laurel Soy Pork Beef Shellfish Peanuts Processed meats Caffeinated coffee Black tea Alcohol Tips for Success: 1. Plan from the start. Access the Functional Nutrition Portal in [employer] to access your food plan comprehensive guide, weekly recipe facility planner, and food list. Shop for foods and ingredients from the food list. 2. Consume enough food to fuel your body. Pair protein (protein/legumes), healthy fat (oils/nuts & seeds) and whole food carbohydrates (starchy vegetable, fruit, grains as applicable) at each meal. Aim for 5-6 cups of non-starchy veggies throughout the day! 3. Balanced Blood Sugar is [place]. Remember to watch out for added refined sugars and artificial sweeteners. Instead, enjoy small amounts of natural sweeteners (honey, maple syrup, blackstrap molasses, date syrup, monkfruit, liquid stevia), up to about a tablespoon per day. 4. Reach out for support. You may notice that certain elements of the food plan are more challenging for you, or that you need to personalize your initial food plan further. If you could use additional guidance, please don't hesitate to reach out! 5. Remember to hydrate. Symptoms of dehydration can often be confused with hunger or cause low energy. Review your food plan for the best hydration options. How to Access [employer] Your Food Plan Resources: Accessing on [employer] To access [employer], please visit: [email or web address] to create a new account. Step 1: Create Your Account: Complete the following laguerre: username, password, email address, first name & last name. Click 'Create My New Account'. A message will display. Click continue. Step 2: Verify Your Account: Check your email for an email from [employer]. In the email, click the link provided to launch [employer] and complete registration. Step 3: Enroll in the 'Functional Nutrition Portal'. Once you have launched [employer], hover over the Find Learning tab, and click on the drop-down option 'Courses'. Search for the course Functional Nutrition Portal in the search field. In the search results, click the link to access the course. Step 4: Enter the Enrollment [facility] Functional Nutrition (this is case sensitive and requires a space-please type this password exactly as shown in red). Step 5: To login after enrollment, visit [email or web address]. Login under 'Non-Employee Login' using the username and password from step #1. Step 6: If you receive an error message that you already have an account, please click 'forgotten your username of password?' to reset your password. Need Help? If you have difficulty accessing this course, please email . ADDITIONAL INSTRUCTIONS: How to Contact Your Functional Medicine Team (Open M-F 8am-5pm): 1. Vyuhart is the BEST form of communication to reach the Functional Medicine Team, see test results and request refills. Please allow 72 business hours for a response. Directions for signing up are included in your New Patient Folder. (Or you can go to [email or web address]) 2. For nutrition related questions or concerns, PlayDot message your physician and include Attn: Toby Artis RD at the top of the message. SplitGigs messaging is meant to support implementation of previously outlined nutrition care plans. In the interest of safe, effective and personalized care, you are asked to schedule a follow-up appointment if: It has been >6 months since your last nutrition appointment Your question requires reassessment or involves a new plan of care Your question concerns a new diagnosis, symptoms(s) and/or health concern Ordering Supplements: Supplements can be ordered from the [facility]'s Online Store: [email or web address] New patients to the [employer] [facility] will need to enter the provider code FUNCTIONAL to register their account. documented in this encounter [facility] 04-10-2023 Note HNO ID: [id number] Author: Toby Artis RD Service: ? Author Type: Registered Dietitian Type: Progress Notes Filed: 04/11/2023 9:08 AM Note Text: [facility] Nutrition Therapy: Initial Assessment (Group) New Patient Shared Nutrition Appointment VIRTUALVISITPN I have communicated my name and active licensure. The patient's identity and physical location were verified at the time of this visit. Either the patient or their legal traveling sales representative has been informed of the risks and benefits of -- and alternatives to -- treatment through a remote evaluation and consents to proceed with the evaluation remotely. Patient is located in the [facility] at the time of the virtual visit. Living Matrix incomplete, history adapted from referring provider's notes Class Topic: Introduction to Functional Nutrition and Implementation of Foundational Food Plan Patient Name: Nasir Wilkerson Past Medical History: PAST MEDICAL HISTORY Diagnosis Date Celiac disease 2019 Endometriosis Gastritis Other specified cardiac arrhythmias Palpitations Paroxysmal supraventricular tachycardia (HCC) Allergies: Patient has no known allergies. Current Medications/Supplements Current Outpatient Medications on File Prior to Visit Medication Sig Magnesium Glycinate 120mg - 90 ct. (Pure Encapsulations) Take 4 capsules at bedtime GI Revive powder Take 1 tablespoons twice daily (1 tablespoon = 1.5 grams L-glut) UltraFlora Balance (UltraFlora Plus DF) (Recurious) Take 1 capsule by mouth once daily. amitriptyline (ELAVIL) 10 mg tablet 30 mg once daily. 3 caps daily famotidine (PEPCID) 20 mg tablet TAKE 1 TABLET BY MOUTH TWICE DAILY DIRECTED FOR REFLUX, HEARTBURN OR ACID TASTE. (Patient not taking: Reported on 10/28/2022) fluticasone (FLONASE) 50 mcg/actuation nasal spray Use 2 Sprays in each nostril once daily. folic acid 1 mg tablet Take 1 mg by mouth once daily. (Patient not taking: Reported on 10/28/2022) nystatin (MYCOSTATIN) 100,000 unit/mL suspension (Patient not taking: Reported on 10/28/2022) potassium citrate ER (UROCIT-K) 5 mEq (540 mg) TbER (Patient not taking: Reported on 10/28/2022) sucralfate (CARAFATE) 1 gram tablet (Patient not taking: Reported on 10/28/2022) metoprolol succinate ER (TOPROL XL) 25 mg 24 hr tablet 25 mg once daily. solifenacin (VESICARE) 5 mg tablet Take 5 mg by mouth once daily. medroxyPROGESTERone (DEPO-PROVERA) 150 mg/mL injection INJECT 1 DOSE INTRAMUSCULARLY EVERY 90 DAYS (IN OFFICE) No current facility-administered medications on file prior to visit. Primary ICD-10 Diagnosis Addressed: No primary diagnosis found. Provider Nutrition Notes: ELIMINATION No Modifier Chief Concerns: 1. Find root cause of autoimmune markers, fatigue, chronic pancreatitis Nutrition Assessment (04/10/23) Digestive symptoms: Yes, bloated feeling , diarrhea, constipation EGD and Colonoscopy 2013, wnl EGD age 21 gastritis SMART Pill age 27 villous atrophy Per chart review had TTG, IgG 56 with normal TTG, IgA. It was concluded she had celiac disease but she was already on a gluten free diet so EGD was not pursued at the time. She had extensive GI work up with concerns for diffuse thickening of the pancreas with concerns for autoimmune etiology then referred to rheumatology. Other relevant symptoms: Headache, allergies, Autoimmune disease Food and Nutrition History (special diet(s) or nutritional program): Yes, Gluten free Adverse Reactions to Foods: Yes, celiac Diet Recall: No, Living Matrix not completed Anthropometrics There were no vitals taken for this visit. Last Height: Last 1 Encounter Ht Readings: Date: Ht: 09/05/2022 154.9 cm (5' 1 ) Last Weight: Last Wt 10/28/22 : 52.6 kg (115 lb 14.4 oz) 09/05/22 : 47.6 kg (105 lb) 05/19/21 : 45.9 kg (101 lb 1.6 oz) Wt: 52.6 kg (115 lb 14.4 oz) BMI: 21.90 kg/(m2) Learning Needs Assessment: Barriers to Learning: Ready to Learn (no barriers noted) Assessed motivation to learn: moderate Nutrition Diagnosis: Altered GI function (NC-1.4) related to Celiac Disease and Irritable Bowel Syndrome as evidenced by patient reported digestive symptoms Nutrition Intervention 04/10/2023: Nutrition Education Content and Nutrition Education Application Current Nutrition Goal(s): reduce diet-related inflammation suspected as symptom trigger, identify food sensitivities suspected as symptom trigger, and promote adequate nutritional intake to meet macro and micronutrient needs Plan from the start. Access the Functional Nutrition Portal in [employer] to access your food plan comprehensive guide, weekly recipe facility planner, and food list. Shop for foods and ingredients from the food list. Follow your initial nutrition prescription for 3-8 weeks Your Food Plan: ELIMINATION No Modifier Elimination Diet The Elimination Food Plan removes common foods that may be causing s (more content not included)... [facility] 04-10-2023 History of Present illness Narrative Images from the original note were not included. [facility] Nutrition Therapy: Initial Assessment (Group) New Patient Shared Nutrition Appointment VIRTUALVISITPN I have communicated my name and active licensure. The patient's identity and physical location were verified at the time of this visit. Either the patient or their legal traveling sales representative has been informed of the risks and benefits of -- and alternatives to -- treatment through a remote evaluation and consents to proceed with the evaluation remotely. Patient is located in the [facility] at the time of the virtual visit. Living Matrix incomplete, history adapted from referring provider's notes Class Topic: Introduction to Functional Nutrition and Implementation of Foundational Food Plan Patient Name: Nasir Wilkerson Past Medical History: PAST MEDICAL HISTORY Diagnosis Date Celiac disease 2019 Endometriosis Gastritis Other specified cardiac arrhythmias Palpitations Paroxysmal supraventricular tachycardia (HCC) Allergies: Patient has no known allergies. Current Medications/Supplements Current Outpatient Medications on File Prior to Visit Medication Sig Magnesium Glycinate 120mg - 90 ct. (Pure Encapsulations) Take 4 capsules at bedtime GI Revive powder Take 1 tablespoons twice daily (1 tablespoon = 1.5 grams L-glut) UltraFlora Balance (UltraFlora Plus DF) (Recurious) Take 1 capsule by mouth once daily. amitriptyline (ELAVIL) 10 mg tablet 30 mg once daily. 3 caps daily famotidine (PEPCID) 20 mg tablet TAKE 1 TABLET BY MOUTH TWICE DAILY DIRECTED FOR REFLUX, HEARTBURN OR ACID TASTE. (Patient not taking: Reported on 10/28/2022) fluticasone (FLONASE) 50 mcg/actuation nasal spray Use 2 Sprays in each nostril once daily. folic acid 1 mg tablet Take 1 mg by mouth once daily. (Patient not taking: Reported on 10/28/2022) nystatin (MYCOSTATIN) 100,000 unit/mL suspension (Patient not taking: Reported on 10/28/2022) potassium citrate ER (UROCIT-K) 5 mEq (540 mg) TbER (Patient not taking: Reported on 10/28/2022) sucralfate (CARAFATE) 1 gram tablet (Patient not taking: Reported on 10/28/2022) metoprolol succinate ER (TOPROL XL) 25 mg 24 hr tablet 25 mg once daily. solifenacin (VESICARE) 5 mg tablet Take 5 mg by mouth once daily. medroxyPROGESTERone (DEPO-PROVERA) 150 mg/mL injection INJECT 1 DOSE INTRAMUSCULARLY EVERY 90 DAYS (IN OFFICE) No current facility-administered medications on file prior to visit. Primary ICD-10 Diagnosis Addressed: No primary diagnosis found. Provider Nutrition Notes: ELIMINATION No Modifier Chief Concerns: 1. Find root cause of autoimmune markers, fatigue, chronic pancreatitis Nutrition Assessment (04/10/23) Digestive symptoms: Yes, bloated feeling , diarrhea, constipation EGD and Colonoscopy 2012, wnl EGD age 21 gastritis SMART Pill age 27 villous atrophy Per chart review had TTG, IgG 56 with normal TTG, IgA. It was concluded she had celiac disease but she was already on a gluten free diet so EGD was not pursued at the time. She had extensive GI work up with concerns for diffuse thickening of the pancreas with concerns for autoimmune etiology then referred to rheumatology. Other relevant symptoms: Headache, allergies, Autoimmune disease Food and Nutrition History (special diet(s) or nutritional program): Yes, Gluten free Adverse Reactions to Foods: Yes, celiac Diet Recall: No, Living Matrix not completed Anthropometrics There were no vitals taken for this visit. Last Height: Last 1 Encounter Ht Readings: Date: Ht: 09/05/2022 154.9 cm (5' 1 ) Last Weight: Last Wt 10/28/22 : 52.6 kg (115 lb 14.4 oz) 09/05/22 : 47.6 kg (105 lb) 05/19/21 : 45.9 kg (101 lb 1.6 oz) Wt: 52.6 kg (115 lb 14.4 oz) BMI: 21.90 kg/(m^2) Learning Needs Assessment: Barriers to Learning: Ready to Learn (no barriers noted) Assessed motivation to learn: moderate Nutrition Diagnosis: Altered GI function (NC-1.4) related to Celiac Disease and Irritable Bowel Syndrome as evidenced by patient reported digestive symptoms Nutrition Intervention 04/10/2023: Nutrition Education Content and Nutrition Education Application Current Nutrition Goal(s): reduce diet-related inflammation suspected as symptom trigger, identify food sensitivities suspected as symptom trigger, and promote adequate nutritional intake to meet macro and micronutrient needs Plan from the start. Access the [facility] Nutrition Portal in [employer] to access your food plan comprehensive guide, weekly recipe facility planner, and food list. Shop for foods and ingredients from the food list. Follow your initial nutrition prescription for 3-8 weeks Your Food Plan: ELIMINATION No Modifier Elimination Diet The Elimination Food Plan removes common foods that may be causing symptoms and, with reintroduction, helps patients identify the foods that may be triggering their symptoms. Food Plan Principles Identify Food Triggers Reduce Inflammation Support Healthy Microbiome No calorie restriction Promote body awareness to food As needed, gradually eliminate caffeine, alcohol, and sugar before you start the full plan. Include Avoid Fruits Healthy oils Lean meats Legumes Nuts Seeds Vegetables Non-starchy vegetables Gluten Dairy Eggs Laurel Soy Pork Beef Shellfish Peanuts Processed meats Caffeinated coffee Black tea Alcohol Your Food Plan Modifier: No modifier Tips for Success: 1. Plan from the start. Access the Functional Nutrition Portal in [employer] to access your food plan comprehensive guide, weekly recipe facility planner, and food list. Shop for foods and ingredients from the food list. 2. Consume enough food to fuel your body. Pair protein (protein/legumes), healthy fat (oils/nuts & seeds) and whole food carbohydrates (starchy vegetable, fruit, grains as applicable) at each meal. Aim for 5-6 cups of non-starchy veggies throughout the day! 3. Balanced Blood Sugar is [facility]. Remember to watch out for added refined sugars and artificial sweeteners. Instead, enjoy small amounts of natural sweeteners (honey, maple syrup, blackstrap molasses, date syrup, monkfruit, liquid stevia), up to about a tablespoon per day. 4. Reach out for support. You may notice that certain elements of the food plan are more challenging for you, or that you need to personalize your initial food plan further. If you could use additional guidance, please don't hesitate to reach out! 5. Remember to hydrate. Symptoms of dehydration can often be confused with hunger or cause low energy. Review your food plan for the best hydration options. How to Access [employer] Your Food Plan Resources: Accessing on [employer] To access [employer], please visit: [email or web address] to create a new account. Step 1: Create Your Account: Complete the following laguerre: username, password, email address, first name & last name. Click 'Create My New Account'. A message will display. Click continue. Step 2: Verify Your Account: Check your email for an email from [employer]. In the email, click the link provided to launch [employer] and complete registration. Step 3: Enroll in the 'Functional Nutrition Portal'. Once you have launched [employer], hover over the Find Learning tab, and click on the drop-down option 'Courses'. Search for the course Functional Nutrition Portal in the search field. In the search results, click the link to access the course. Step 4: Enter the Enrollment [facility] (this is case sensitive and requires a space-please type this password exactly as shown in red). Step 5: To login after enrollment, visit [email or web address]. Login under 'Non-Employee Login' using the username and password from step #1. Step 6: If you receive an error message that you already have an account, please click 'forgotten your username of password?' to reset your password. Need Help? If you have difficulty accessing this course, please email . Adherence Potential to Goals/Care Plan: Moderate Nutrition Monitoring & Evaluation: Adherence to food plan, changes in symptom frequency and intensity, nutrition-related laboratory data Criteria: Dietary recall, laboratory results, subjective symptom response Education Materials Provided: Food Plan Comprehensive Guide, Weekly Linux Network Administrator and Recipes, Phytonutrient Spectrum Foods, Product Guide, Simple Meal and Snack Ideas Follow up: 4 Weeks Time Spent: 46 minutes Referred/Supervised by: Gracie Valadez MD Consult Billing Type: Group/60 minutes Number of Increments: 2 (60 minutes) Signed by: Toby Artis RD documented in this encounter [facility] 04-07-2023 Note HNO ID: [id number] Author: Gracie Valadez MD Service: ? Author Type: Physician Type: Progress Notes Filed: 04/07/2023 3:15 PM Note Text: This Team Access Model visit is a virtual encounter. It required patient-provider interaction for the medical decision making as documented below. FUNCTIONAL MEDICINE INITIAL ASSESSMENT I have communicated my name and active licensure. The patient's identity and physical location were verified at the time of this visit. Either the patient or their legal traveling sales representative has been informed of the risks and benefits of -- and alternatives to -- treatment through a remote evaluation and consents to proceed with the evaluation remotely. ALLERGIES No Known Allergies Current Outpatient Medications Medication Sig Dispense Refill Magnesium Glycinate 120mg - 90 ct. (Pure Encapsulations) Take 4 capsules at bedtime GI Revive powder Take 1 tablespoons twice daily (1 tablespoon = 1.5 grams L-glut) UltraFlora Balance (UltraFlora Plus DF) (Recurious) Take 1 capsule by mouth once daily. amitriptyline (ELAVIL) 10 mg tablet 30 mg once daily. 3 caps daily famotidine (PEPCID) 20 mg tablet TAKE 1 TABLET BY MOUTH TWICE DAILY DIRECTED FOR REFLUX, HEARTBURN OR ACID TASTE. (Patient not taking: Reported on 10/28/2022) fluticasone (FLONASE) 50 mcg/actuation nasal spray Use 2 Sprays in each nostril once daily. folic acid 1 mg tablet Take 1 mg by mouth once daily. (Patient not taking: Reported on 10/28/2022) nystatin (MYCOSTATIN) 100,000 unit/mL suspension (Patient not taking: Reported on 10/28/2022) potassium citrate ER (UROCIT-K) 5 mEq (540 mg) TbER (Patient not taking: Reported on 10/28/2022) sucralfate (CARAFATE) 1 gram tablet (Patient not taking: Reported on 10/28/2022) metoprolol succinate ER (TOPROL XL) 25 mg 24 hr tablet 25 mg once daily. solifenacin (VESICARE) 5 mg tablet Take 5 mg by mouth once daily. medroxyPROGESTERone (DEPO-PROVERA) 150 mg/mL injection INJECT 1 DOSE INTRAMUSCULARLY EVERY 90 DAYS (IN OFFICE) No current facility-administered medications for this visit. PAST MEDICAL HISTORY Diagnosis Date Celiac disease 2019 Endometriosis Gastritis Other specified cardiac arrhythmias Palpitations Paroxysmal supraventricular tachycardia (HCC) PAST SURGICAL HISTORY Procedure Laterality Date DILATION AND CURETTAGE 2019 PAST SURGICAL HISTORY OF 2011 TONSILLECTOMY Social History Tobacco Use Smoking status: Never Smokeless tobacco: Current Tobacco comments: Vaping Vaping Use Vaping Use: current everyday user Substances: Nicotine Substance Use Topics Alcohol use: Yes Comment: socially Drug use: Never EVALUATION MSQ: not done Patient Entered Questionnaire PROMIS Scale T-Scores -- HIGHER SCORES BETTER PROMIS Global Health - (T-Scores - the mean of general population = 50. Five points is a clinically meaningful difference.) 10/24/2022 03/29/2023 Physical T-Score - 44.9 Mental T-Score 45.8 45.8 Depression Screening: PHQ-9 03/29/2023 Score 7 PHQ-9 Self Harm 03/29/2023 Question 9 Not at all PHQ-9 Self-Harm (Item 9) response options: 0 Not at all 1 Several days 2 More than half the days 3 Nearly every day PHQ-9 Levels: 0-4 Minimal depression 5-9 Mild depression 10-14 Moderate depression 15-19 Moderately severe depression 20-27 Severe depression Subjective: Initial Visit Dr. Valadez 04/07/23 Patient is in [place], [place] today This consultation was requested by Dr. Harshil Duarte. My final recommendations will be communicated to the referring physician by way of the shared medical record for internal providers. Thank you for the opportunity to participate in the care of your patient, Nasir Wilkerson, whom I saw in [facility]. Primary concern: Find root cause of autoimmune markers, fatigue, chronic pancreatitis HPI: Recurrent strep throat as a kid with tonsillectomy age 17 She had recurrent abdominal pain growing up with blood in stool now more intermittent Diagnosed with IBS as a child She reports she had her first menstrual period age 10, she would vomits and have low grade fever during menses Age 22 she had surgery for endometriosis and heavy, painful periods She gets Dept Provera so not getting menstrual period helpful Growing up had chronic symptoms of bladder infections but did not have positive urine culture. She had surgery on her bladder a few years ago in 20s for IC and water treatment. She had kidney stone a year ago which passed spontaneously. She started to feel a sensation of crawling under her skin. Blood work found a positive celiac serology. She had pancreatitis age 20 and reports titers have been up since that time. She had similar episode last year. She was not hospitalized for either episode. She inadvertently ate gluten at a green party a year ago and had abdominal pain with pancreatitis a week later as well as COVID-19 infection 2021 Card (more content not included)... [facility] 10-28-2022 Note HNO ID: [id number] Author: Samuel Turpin MD Service: ? Author Type: Physician Type: Progress Notes Filed: 11/16/2022 9:33 PM Note Text: Nasir Wilkerson is a 27 year old female. Consultation was requested by Dr. Sharma for an opinion regarding recurrent pancreatitis of autoimmune etiology; my final assessment and recommendations will be communicated back to the requesting physician by way of shared medical record, or by letter via fax or [place] mail. Evaluation Date: 10/28/2022 Chief Complaint: Concern for vasculitis. HPI: History was obtained from the patient and from outside records. Nasir Wilkerson dates her history back to 4 years back. She has a medical history of, -Celiac Disease -Endometriosis -Sinus Tachycardia -Chronic interstitial Cystitis -Chronic abdominal pain -Migraine headaches 4 years back, the patient started having abdominal pain and was initially diagnosed with pancreatitis however, had persistent pain after acute episode following which she underwent a diagnostic laparoscopy and was found to have endometriosis. She was started on depo shots with slight improvement in symptoms. Most recently, the patient had COVID 19 infection in April of 2022. She went to her physician because of palpitations and abdominal pain that was localized in the left side. She underwent lab evaluation and was seen by gastroenterology for elevated lipase and concerns of pancreatitis. It was moderate in intensity and was intermittent. Every episode lasted seconds and was sometimes sharp in nature with cramp like feel and at other times was a dull ache. It has no radiation. It was associated with nausea, diarrhea and constipation. The symptoms started after she had an accidental exposure to gluten. She had extensive evaluation including CT Scan, MRI of the Abdomen and HIDA scan. Her local tip stitcher had concerns for diffuse thickening of the pancreas with concerns of autoimmune etiology following which the patient was referred here for evaluation. Today she is in no acute distress but continues to have intermittent episodes of abdominal pain similar in characteristics to one mentioned above. It is associated with occasional nausea and sometimes blood in the stools which is red in color. No fever or chills but has occasional night sweats. She continues to be gluten free. She takes alcohol twice a week. No history of binging. She vapes Delta-8 (THC) and tobacco. She also complains of joint aches and pains for the last year. She has the worst pain in the R 1st metacarpophalangeal joint. It is associated with swelling and tenderness. She also complains of pain in her interphalangeal joints bilaterally. Also has pain in her big toes bilaterally. The patient also complains of frequent headaches with pain and tenderness in the jaw and neck muscles. These symptoms also started 1 year back. 1 month back she started having sharp pain with exhalation and had to go to the Urgent care and later had an appointment with gastroenterology and was told that she had pleurisy. 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 Father at age 38 and had cardiovascular problems. ROS GENERAL: has malaise, fatigue, night sweats FEVER: none WEIGHT CHANGE: has gained 10lbs pounds since 1 year HEAD: negative for, occasional scalp tenderness, negative for headache, temporal tenderness ENT: nasal crusting, epistaxis (x2), ear pain EYES: negative for , pain, redness, visual blurring, diplopia NECK: mass, swelling, tenderness RESPIRATORY: negative for, cough, sputum production, shortness of breath CARDIOVASCULAR: negative for, chest pain, occasional palpitations, no peripheral edema GASTROINTESTINAL: abdominal pain, nausea, diarrhea URINARY: negative for, dysuria, hematuria, frequency, incontinence TESTICULAR/SPLITTER OPERATOR: negative for, abnormal vaginal bleeding , pain, swelling MUSCULOSKELETAL: joint pain bilaterally in hands and feet, myalgias NEUROLOGIC: numbness, paresthesias SKIN: negative for, rash, nodules, ulcers MOOD/PSYCHIATRIC: negative for, sleep disturbance, depression, has anxiety PAST MEDICAL HISTORY: PAST MEDICAL HISTORY Diagnosis Date Celiac disease 2019 Endometriosis Gastritis Other specified cardiac arrhythmias Palpitations Paroxysmal supraventricular tachycardia (HCC) PAST SURGICAL HISTORY: PAST SURGICAL HISTORY Procedure Laterality Date DILATION AND CURETTAGE 2019 PAST SURGICAL HISTORY OF 2011 TONSILLECTOMY CURRENT MEDICATIONS: Current Outpatient Medications Medication Sig amitriptyline (ELAVIL) 10 mg tablet 30 mg once daily. 3 caps daily fluticasone (FLONASE) 50 mcg/actuation nasal spray Use 2 Sprays in each nostril once daily. metoprolol succinate ER (TOPROL XL) 25 mg 24 hr tablet 25 mg once daily. solifenacin (VESICARE) 5 mg tablet Take 5 mg by mouth once daily. medroxyPROGESTERone (DEPO-PROVERA) 150 mg/mL injection INJECT 1 DOSE INTRAMUS (more content not included)... [facility] 09-05-2022 History of Present illness Narrative PRIMARY CARE PHYSICIAN: Harshil Duarte MD ([facility]) [address] [place] [address] REFERRING PHYSICIAN: Mark Diallo MD ([facility]) [address] [id number] Patient Care Team: Harshil Duarte MD as PCP - General (Family Medicine) Mark Diallo as Specialty Micromatic Hone Operator (Cardiology) CHIEF COMPLAINT: Palpitations HISTORY OF PRESENT ILLNESS: Ms. Wilkerson is a 27 year old female who presents today with complaints of palpitations. Patient is a 27 year old female with PMH significant for celiac disease, recurrent pancreatitis, endometriosis who was referred to the EP clinic with complaints of palpitations. As per patient this started in April and then she was later diagnosed with COVID-19. She reports feeling of fatigue and shortness of breath associated with heart racing. She reports feeling skipped beats also. This can also sometimes be associated with feeling lightheaded and sweating profusely. Her symptoms have no relation to activity and can happen at any time of the day. She doesn't exercise regularly but does perform yoga on and off. She was seen at [facility] by PCP and then Cardiology and an echocardiogram that showed normal structure and function. A TTT was negative as was a treadmill stress test. A 7 day event monitor was ordered that showed predominant rhythm as SR, episodes of sinus tachycardia and a 4 beat run of AT, otherwise unremarkable. Patient is a current smoker and also drinks caffeinated beverages during the day. She does reports occasional heart racing while just sitting down but other complains mostly of SOB, fatigue and occasional skipped beats. She denies chest pain, syncope/passing out, excessive SOB or orthopnea. No prior history of SCD in family. She denies chest pain, orthopnea, edema, PND, lightheadedness or syncope. I have confirmed and edited as necessary, the PFSH and ROS obtained by others. PAST MEDICAL HISTORY Diagnosis Date Celiac disease 2019 Endometriosis Gastritis Other specified cardiac arrhythmias Palpitations Paroxysmal supraventricular tachycardia (HCC) PAST SURGICAL HISTORY Procedure Laterality Date DILATION & CURETTAGE 2019 PAST SURGICAL HISTORY OF 2011 TONSILLECTOMY SOCIAL HISTORY Social History Tobacco Use Smoking status: Never Smokeless tobacco: Current Tobacco comments: Vaping Vaping Use Vaping Use: current everyday user Substances: Nicotine Substance Use Topics Alcohol use: Yes Comment: socially Drug use: Never FAMILY HISTORY Problem Relation Age of Onset Thyroid Father Heart disease Father other (PCOS) Sister ALLERGIES: ALLERGIES No Known Allergies MEDICATIONS: famotidine (PEPCID) 20 mg tablet TAKE 1 TABLET BY MOUTH TWICE DAILY DIRECTED FOR REFLUX, HEARTBURN OR ACID TASTE. fluticasone (FLONASE) 50 mcg/actuation nasal spray Use 2 Sprays in each nostril once daily. folic acid 1 mg tablet Take 1 mg by mouth once daily. metoprolol succinate ER (TOPROL XL) 25 mg 24 hr tablet 25 mg once daily. solifenacin (VESICARE) 5 mg tablet Take 5 mg by mouth once daily. medroxyPROGESTERone (DEPO-PROVERA) 150 mg/mL injection INJECT 1 DOSE INTRAMUSCULARLY EVERY 90 DAYS (IN OFFICE) nystatin (MYCOSTATIN) 100,000 unit/mL suspension potassium citrate ER (UROCIT-K) 5 mEq (540 mg) TbER sucralfate (CARAFATE) 1 gram tablet REVIEW OF SYSTEMS: GENERAL: Negative for: Weight loss or gain, Fever or Chills, Weakness and Sleep difficulties. RESPIRATORY: Negative for: Cough, Blood in Sputum, Shortness of breath, Wheezing, Apnea GASTROINTESTINAL: Negative for: Trouble swallowing, Heartburn, Change in bowel habits, Blood in stool, Dark black stools NEUROLOGIC/PSYCHIATRIC: Negative for: Weakness, Paralysis, Numbness, Tingling, Tremor, Nervousness or anxiety, Depressed mood, Memory loss SKIN: Negative for: Rash, Itching HEMATOLOGICAL/LYMPHATIC: Negative for: Easy bruising, Easy bleeding ENDOCRINE: Positive for: Excessive sweating PHYSICAL EXAMINATION: BP 109/71 Pulse 74 Ht 5' 1 (1.55m) Wt 105 lb (47.6kg) SpO2 98% BMI 19.85 kg/(m^2). General: Well appearing, in no acute distress, speaking in complete sentences. Eyes: Non-icteric sclerae Neck: No jugular venous distention, no carotid bruits, carotids have a normal upstroke, no palpable thyromegaly. Lungs: Clear to auscultation bilaterally, no wheezing or rhonchi. Heart: Regular rhythm, PMI not displaced, S1, S2 normal, no S3, no S4, no heaves, no rub and no murmur. Abdomen: Soft, nontender, bowel sounds normal, no palpable organomegaly, no bruits. Extremities: No peripheral edema . Grade 2/4 distal pulses bilaterally. Neuro: Oriented to person, place and time, alert, cooperative, gait coordinated. CARDIOVASCULAR MEDICINE TESTING: Electrocardiogram: SR with sinus arryhthmia. Echocardiogram: 05/23 LVEF 65%, No diastolic dysfunction, No significant valvular abnormalities. 7 day event monitor: 06/23 NSR, AT 4 beats @103 bpm, EAR, PAC 0.01%. TTT: 07/23 Negative TTT with no evidence of syncope. Treadmill stress: 07/23 Adequate stress test, no ischemic changes or arrhythmias noted. There were no tests performed for review. ASSESSMENT/PLAN: 1. Sinus tachycardia - ICD9: 427.89, ICD10: R00.0 (primary diagnosis) 2. Palpitations - ICD9: 785.1, ICD10: R00.2 IMPRESSION: Ms. Wilkerson presents with complaints of palpitations. Her cardiovascular testing including echocardiogram, treadmill stress test, Tilt table test and a 7 day event monitor have been unremarkable. She feels her symptoms are a little improved on metoprolol. Primarily, the etiology of her symptoms are not related to arrhythmias or structural heart disease. She might have occasional PAC's(EM showed 0.01%) well within normal range. 1 episode of AT, only 4 beat run is not concerning or medically relevant. Her symptoms are possibly related to sinus tachycardia and occasional PAC's. I am hesitant to label this as inappropriate sinus tach as her avg. HR during EM was 90 and today in the clinic HR is 78 bpm. PLAN AND RECOMMENDATIONS: Recommend health lifestyle including work on quitting smoking, vaping and cut down on alcohol use and caffeine. Regular moderate intensity exercise, at least 5 days per week. Patient reassured about the benign nature of sinus tachycardia and intermittent PAC's and about the natural progression. Continue metoprolol at current dosage, tolerating well. (If any issues with side effects on metoprolol, will consider diltiazem). Would anticipate with lifestyle changes, we should be able to discontinue this in the near short term period. Given her history of auto-immune diseases(celiac disease and possible pancreatitis), would recommend endocrine panel including TSH, to be performed during next PCP visit. Last reviewed in our system (TSH 1.42- 08/2015) Consider 30 day event monitor if required for worsening or increased frequency of symptoms. Return in about 1 year (around 09/05/2023). Tomas Reddy MD documented in this encounter [facility] 09-05-2022 Instructions Tomas Reddy MD - 09/05/2022 8:56 AM EST Tachycardia (Fast Heartbeat) What is tachycardia? Tachycardia is a resting heart rate that stays above 100 beats per minute when you are resting. The normal adult heart rate ranges from about 50 to 100 beats per minute. What is the cause? An electrical signal in your heart starts each heartbeat, causing the heart muscle to squeeze (contract). Normally, this signal starts in the upper right chamber of the heart (the right atrium) at a place called the sinus node. The signal then follows pathways to the upper left atrium and to the lower chambers of the heart (the ventricles). Many different things can cause a fast resting heart rate. Some of the conditions that can cause your heart to beat faster are: Anemia High blood pressure Fever Stress Thyroid problems Problems with the heart can cause a fast heart rate. For example: Changes in the electrical signal that causes your heart to beat can make your heart beat faster. Muscles in the upper chambers of the heart may tend to quiver and send random signals to the lower chambers of the heart. The heartbeat may start in the lower chambers of the heart rather than the upper chamber. What are the symptoms? The main symptom is feeling your heart beating fast. Other symptoms may include: Lightheadedness or fainting Nausea Cold sweat Shortness of breath Chest pain Weakness Contact your healthcare provider if you have any of these symptoms in addition to a fast heartbeat. How is it diagnosed? Your healthcare provider will ask about your symptoms and medical history and examine you. Tests may include: Blood tests Chest X-rays An ECG (also called an EKG or electrocardiogram), which measures and records your heartbeat. You may have an ECG while you are resting or while you exercise on a treadmill. You may also be asked to wear a small portable ECG monitor for a few days or longer. An electrophysiology study, which uses tiny wires put into your heart through your veins to look at the electrical paths in your heart How is it treated? The treatment depends on the type of tachycardia that you have. Treatment may include: Medicine to slow your heartbeat Ablation, which uses a small tube called a catheter to deliver electrical pulses to the inside of the heart. The electrical pulses make small scars that block abnormal electrical pathways. This helps you have a regular heart rhythm. An implantable cardiac defibrillator (ICD), which is a device that can shock the heart back to a regular rhythm. In cases of life-threatening heart rhythm problems, ICDs can provide an instant, life-saving electrical shock before medical help arrives. You may also receive treatment for any health problems you have that may be causing tachycardia. How can I take care of myself? If you have heart disease, high blood pressure, or another medical problem, follow your treatment plan. Be sure to take all medicines as prescribed by your provider. Try to have a heart-healthy lifestyle: Eat a healthy diet. Try to keep a healthy weight. If you are overweight, lose weight. Stay fit with the right kind of exercise for you. Learn ways to manage stress. If you smoke, try to quit. Talk to your healthcare provider about ways to quit smoking. If you want to drink alcohol, ask your healthcare provider how much is safe for you to drink. Try to get at least 7 to 9 hours of sleep each night. Ask your provider: How and when you will hear your test results How long it will take to recover What activities you should avoid and when you can return to your normal activities How to take care of yourself at home What symptoms or problems you should watch for and what to do if you have them Make sure you know when you should come back for a checkup. How can I help prevent tachycardia? There is no specific way to prevent tachycardia, but a healthy lifestyle can help prevent heart disease, which can cause tachycardia. Developed by [employer]. Published by [employer]. Copyright 2014 [employer] and/or one of its subsidiaries. All rights reserved. documented in this encounter [facility] 09-05-2022 Nurse Note No cardiac complaints today documented in this encounter [facility] 07-28-2022 Miscellaneous Notes Refill(s) request: Requested Prescriptions Pending Prescriptions Disp Refills gabapentin (NEURONTIN) 100 mg capsule 90 capsule 2 Sig: TAKE 3 CAPSULES BY MOUTH ONCE DAILY AT BEDTIME Request from: Patient Appointment scheduled: 08/09/22 Per records, adequate refills remain to get patient to next visit. Last refill: Disp Refills Start End gabapentin (NEURONTIN) 100 mg capsule 90 capsule 2 07/21/2022 08/19/2022 Sig: TAKE 3 CAPSULES BY MOUTH ONCE DAILY AT BEDTIME Sent to pharmacy as: gabapentin (NEURONTIN) 100 mg capsule Class: Normal Order: [id number] E-Prescribing Status: Receipt confirmed by pharmacy (07/21/2022 2:50 PM EDT) documented in this encounter [facility] 07-21-2022 Miscellaneous Notes The following approved medication requests have been transmitted electronically. Requested Prescriptions Signed Prescriptions Disp Refills gabapentin (NEURONTIN) 100 mg capsule 90 capsule 2 Sig: TAKE 3 CAPSULES BY MOUTH ONCE DAILY AT BEDTIME Authorizing Provider: RAAD BACA Pharmacy Information Pharmacy Address Telephone [facility] [address] [phone] Raad Baca APRN.CNP July 21, 2022 2:50 PM PDMP website checked and validated. All prescriptions have been APPROPRIATELY filled. No suspicious activity was identified. 07/21/2022 by Raad Baca APRN.JANUARY LV: 05/19/[address] Bryant Future appointment: 08/09/2022 Per note: Encounter Diagnosis ICD-10-CM 1. 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 Chronic pelvic pain in female R10.2 G89.29 4. Chronic interstitial cystitis N30.10 methenam/sod phos/mblue/hyoscy (UROGESIC-BLUE ORAL) gabapentin (NEURONTIN) 100 mg capsule 5. Endometriosis N80.9 6. Dyspareunia in female N94.10 7. Pelvic floor dysfunction M62.89 8. Myofascial pain M79.18 PLAN Recommended vaginal botox- will attempt to get approved by insurance Continue Depo Provera Stop Elavil As not effective after 1 month then Start gabapentin 100 mg x 7 days then 200 mg x 7 days then 300 mg nightly Start vaginal baclofen suppositories nightly Educated on chronic pain resources - handout provided Continue uribel and follow up with Urology re: IC, could consider bladder instillations in the future Follow up in 2 months, sooner if vaginal botox is approved Per Pt: I won't have enough to make it till my appointment on August 09 Partial pended, will route to TWISTING MACHINE OPERATOR Nikhil Huffman RN July 21, 2022 2:25 PM documented in this encounter [facility] 06-22-2022 Miscellaneous Notes Spoke to patient, name and verified. Patient needs another partial fill. She does not wish to wean off of gabapentin. Future appt: 07/19/2022 Rochelle Duarte RN June 22, 2022 11:55 AM Attempted to reach patient. VM left for patient to call office. LV: 05/19/21 ASSESSMENT Nasir Wilkerson is a 25 year old female with Chronic pelvic pain in female (primary encounter diagnosis) Chronic interstitial cystitis Endometriosis Dyspareunia in female Pelvic floor dysfunction High-tone pelvic floor dysfunction Encounter Diagnosis ICD-10-CM 1. 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 Chronic pelvic pain in female R10.2 G89.29 4. Chronic interstitial cystitis N30.10 methenam/sod phos/mblue/hyoscy (UROGESIC-BLUE ORAL) gabapentin (NEURONTIN) 100 mg capsule 5. Endometriosis N80.9 6. Dyspareunia in female N94.10 7. Pelvic floor dysfunction M62.89 8. Myofascial pain M79.18 PLAN Recommended vaginal botox- will attempt to get approved by insurance Continue Depo Provera Stop Elavil As not effective after 1 month then Start gabapentin 100 mg x 7 days then 200 mg x 7 days then 300 mg nightly Start vaginal baclofen suppositories nightly Educated on chronic pain resources - handout provided Continue uribel and follow up with Urology re: IC, could consider bladder instillations in the future Follow up in 2 months, sooner if vaginal botox is approved Patient: Nasir Wilkerson : 1995 Caller: Patient Caller Phone #: [phone] (home) [phone] (cell) Reason for call: Patient calling with questions about possibly weaning off her gabapentin. Date of last visit: 05/19/21 Date of next visit: 07/19/22 documented in this encounter [facility] 05-06-2022 Miscellaneous Notes The following approved medication requests have been transmitted electronically. Signed Prescriptions Disp Refills gabapentin (NEURONTIN) 100 mg capsule 90 capsule 0 Sig: TAKE 3 CAPSULES BY MOUTH ONCE DAILY AT BEDTIME DENAE: No Authorizing Provider: RAAD BACA Pharmacy Information [place] [address] Raad Baca APRN.CNP May 06, 2022 5:05 PM PDMP website checked and validated. All prescriptions have been APPROPRIATELY filled. No suspicious activity was identified. 05/06/2022 by Raad Baca APRN.JANUARY Partial refill needed of gabapentin. Last visit Dr. Bryant 05/19/2021. Advised need for f/u appt. Lakeisha Watkins, RN PLAN Recommended vaginal botox- will attempt to get approved by insurance Continue Depo Provera Stop Elavil As not effective after 1 month then Start gabapentin 100 mg x 7 days then 200 mg x 7 days then 300 mg nightly Start vaginal baclofen suppositories nightly Educated on chronic pain resources - handout provided Continue uribel and follow up with Urology re: IC, could consider bladder instillations in the future Follow up in 2 months, sooner if vaginal botox is approved Nurse triage VM - patient calling back. Attempted to call pt to discuss Gabapentin refill request Left detailed msg How much Gabapentin is pt taking daily? Due now for annual f/u - please assist pt to sched appt, then forward request to JANUARY Velez RN Refill(s) request: neurontin Request from: pharmacy Last OV: 05/19/21 Appointment scheduled: None Kaleigh Ignacio Ma April 28, 2022 10:24 AM . documented in this encounter [facility] Evaluation + Plan note No data available for this section [facility] Diagnosis Vulvodynia Vulvodynia, unspecified Chronic interstitial cystitis [facility] Diagnosis Vulvodynia Vulvodynia, unspecified Chronic interstitial cystitis [facility] Diagnosis Sinus tachycardia- Primary Other specified cardiac dysrhythmias Palpitations [facility] Diagnosis Celiac disease- Primary Irritable bowel syndrome with both constipation and diarrhea Postprandial bloating Flatulence, eructation, and gas pain Dietary counseling and surveillance Dietary surveillance and counseling [facility] Diagnosis Transfer requested for continuity of care- Primary Encounter for surveillance of injectable contraceptive Surveillance of other previously prescribed contraceptive method Vapes nicotine containing substance Paroxysmal supraventricular tachycardia (HCC) Paroxysmal supraventricular tachycardia Palpitations Endometriosis Endometriosis, site unspecified [facility] Diagnosis Depo-Provera contraceptive status- Primary Surveillance of other previously prescribed contraceptive method [facility] Diagnosis Celiac disease- Primary Other chronic pancreatitis (HCC) Nicotine dependence, uncomplicated, unspecified nicotine product type Migraine without status migrainosus, not intractable, unspecified migraine type documented in this encounter [facility] Summary Purpose Family History No Family History Records Found No data available for this section No Family History Records FoundNo Family History Records FoundNo Family History Records Found Advance Directives No Advanced Directives Records FoundNo Advanced Directives Records FoundNo Advanced Directives Records FoundNo Advanced Directives Records Found Reason for Referral Specialty Diagnoses / Procedures Referred By Contac t Referred To Contact Diagnoses Nicotine dependence, uncomplicated, unspecified nicotine product type Procedures CONSULT FOR ACUPUNCTURE OFFICE/OUTPATIENT [facility] 60-74 MINUTES Leigh Ann Feldman DO [address] [place] [address] Referral ID Status Reason Start Date Expiration Date Visits Requested Visits Authorized [id number] Pending Review PCP Requested Referral 09/04/2023 09/03/2024 1 1 Additional Source Comments INFORMATION SOURCE (unrecogn ized section and content) DATE CREATED AUTHOR AUTHOR'S ORGANIZ ATION 09/01/2023 [employer] DATE CREATED AUTHOR AUTHOR'S ORGANIZ ATION 09/27/2023 [facility] DATE CREATED AUTHOR AUTHOR'S ORGANIZ ATION 10/15/2023 [facility] Source Comments (unrecognize d section and content) In the event this informatio n is protected by the Federal Confidentiality of Alcohol and Drug Abuse Patient Records regulations: The Federal rules restrict any use of the information to criminally investigate or prosecute any alcohol or drug abuse patient.[facility] the event this information is protected by the Federal Confidentiality of Alcohol and Drug Abuse Patient Records regulations: The Federal rules restrict any use of the information to criminally investigate or prosecute any alcohol or drug abuse patient.[facility] the event this information is protected by the Federal Confidentiality of Alcohol and Drug Abuse Patient Records regulations: The Federal rules restrict any use of the information to criminally investigate or prosecute any alcohol or drug abuse patient.[facility] the event this information is protected by the Federal Confidentiality of Alcohol and Drug Abuse Patient Records regulations: The Federal rules restrict any use of the information to criminally investigate or prosecute any alcohol or drug abuse patient.[facility] the event this information is protected by the Federal Confidentiality of Alcohol and Drug Abuse Patient Records regulations: The Federal rules restrict any use of the information to criminally investigate or prosecute any alcohol or drug abuse patient.[facility] the event this information is protected by the Federal Confidentiality of Alcohol and Drug Abuse Patient Records regulations: The Federal rules restrict any use of the information to criminally investigate or prosecute any alcohol or drug abuse patient.[facility] the event this information is protected by the Federal Confidentiality of Alcohol and Drug Abuse Patient Records regulations: The Federal rules restrict any use of the information to criminally investigate or prosecute any alcohol or drug abuse patient.[facility] the event this information is protected by the Federal Confidentiality of Alcohol and Drug Abuse Patient Records regulations: The Federal rules restrict any use of the information to criminally investigate or prosecute any alcohol or drug abuse patient.[facility] the event this information is protected by the Federal Confidentiality of Alcohol and Drug Abuse Patient Records regulations: The Federal rules restrict any use of the information to criminally investigate or prosecute any alcohol or drug abuse patient.[facility] the event this information is protected by the Federal Confidentiality of Alcohol and Drug Abuse Patient Records regulations: The Federal rules restrict any use of the information to criminally investigate or prosecute any alcohol or drug abuse patient.[facility] the event this information is protected by the Federal Confidentiality of Alcohol and Drug Abuse Patient Records regulations: The Federal rules restrict any use of the information to criminally investigate or prosecute any alcohol or drug abuse patient.[facility] the event this information is protected by the Federal Confidentiality of Alcohol and Drug Abuse Patient Records regulations: The Federal rules restrict any use of the information to criminally investigate or prosecute any alcohol or drug abuse patient.[facility] the event this information is protected by the Federal Confidentiality of Alcohol and Drug Abuse Patient Records regulations: The Federal rules restrict any use of the information to criminally investigate or prosecute any alcohol or drug abuse patient.[facility] the event this information is protected by the Federal Confidentiality of Alcohol and Drug Abuse Patient Records regulations: The Federal rules restrict any use of the information to criminally investigate or prosecute any alcohol or drug abuse patient.[facility] the event this information is protected by the Federal Confidentiality of Alcohol and Drug Abuse Patient Records regulations: The Federal rules restrict any use of the information to criminally investigate or prosecute any alcohol or drug abuse patient.[facility] Reason for Visit (unrecogniz ed section and content) Reason Comments Medication Problem Reason Onset Date Comments Refill Request 07/20/2022 Reason Onset Date Comments Refill Request 07/28/2022 Reason Comments New Patient Evaluation Referral from [facility] Reason Comments New Patient Reason Comments Received Outside Medical Records Reason Comments Contraception Reason Comments Orders Reason Comments Established Patient Celiac, IC, and chronic care nurse milad pancreatitis Reason Comments Virtual visit connection failed Reason Comments Fax number clarification Care Teams (unrecognized sec tion and content) Pitch Gatherer Relationship Specialty Start Date End Date Harshil Duarte MD [address] [place] [address] PCP - General Family Medicine 08/15/22 Mark Diallo [address] [place] [id number] Specialty Micromatic Hone Operator Cardiology 08/15/22 Pitch Gatherer Relationship Specialty Start Date End Date Harshil Duarte MD [address] [place], [place] [id number] PCP - General Family Medicine 08/15/22 Mark Diallo [address] [place] [address] Specialty Micromatic Hone Operator Cardiology 08/15/22 Pitch Gatherer Relationship Specialty Start Date End Date Harshil Duarte MD [address] [place] [address] PCP - General Family Medicine 08/15/22 Mark Diallo [address] [place] [address] Specialty Micromatic Hone Operator Cardiology 08/15/22 Pitch Gatherer Relationship Specialty Start Date End Date Harshil Duarte MD [address] [place] [address] PCP - General Family Medicine 08/15/22 Mark Diallo [address] [place] [address] Specialty Micromatic Hone Operator Cardiology 08/15/22 Pitch Gatherer Relationship Specialty Start Date End Date Harsihl Duarte MD [address] [place] [address] PCP - General Family Medicine 08/15/22 Mark Diallo [address] [place] [address] Specialty Micromatic Hone Operator Cardiology 08/15/22 Pitch Gatherer Relationship Specialty Start Date End Date Harshil Duarte MD [address] [place] [address] PCP - General Family Medicine 08/15/22 Mark Diallo MD [address] [id number] Specialty Micromatic Hone Operator Cardiology 08/15/22 Pitch Gatherer Relationship Specialty Start Date End Date Harshil Duarte MD [address] [place] [address] PCP - General Family Medicine 08/15/22 Mark Diallo MD [address] [address] Specialty Micromatic Hone Operator Cardiology 08/15/22 FOR RECORDS PERTAINING TO PATIENTS WHO ARE OR HAVE BEEN ENROLLED IN A CHEMICAL DEPENDENCY/SUBSTANCEABUSE PROGRAM, SOME INFORMATION MAY BE OMITTED. This clinical summary was aggregated from multiple sources. Caution should be exercised in using it in the provision of clinical care. This summary normalizes information from multiple sources, and as a consequence, information in this document may materially change the coding, format and clinical context of patient data. In addition, data may be omitted in some cases. CLINICAL DECISIONS SHOULD BE BASED ON THE PRIMARY CLINICAL RECORDS. [employer] provides no warranty or guarantee of the accuracy or completeness of information in this document.
[2023-10-24] MEDS: Lactated Ringers 1,000 ML 15 ML IV (12:34)
--- NOTE | 2023-10-24 12:44 | PCM.HP.BLA ---
History and Physical Date of Admission: 10/24/23 28 F who presents to the office today for FH history without pancreatic disease. PCP OV 04.26.22 with sharp pains in left upper and lower abdomen with nausea, early fullness causing decreased appetite and alternating diarrhea/constipation. PCP unsure of pancreatitis cause: no drug use, narcotic use. Admits to alcohol use one glass a couple times a week and minimal binge drinking. US abd 8.2.17 RUQ pain [facility] without acute/chronic abnormality. CT abd/pel 03.25.21 abd pain [facility] unremarkable pancreas. Small calculus is distal ureter (seen as cleared on 05.06.21 CT scan). Biochemical workup D-Dimer, TSH, CMP, CRP, amylase, CBC without pertinent abnormality. Lipase H411. *BGI established 07.14.22 with referral from her PCP for further evaluation of suspected pancreatitis. Prior to most recent pancreatitis she was having a celiac flare from accidentally eating gluten; she is typically strict gluten free. Celiac diagnosed approximately two years with no provider following. Pancreatitis diagnosis questioned as lipase is not 3 times the upper level of normal. ? Biochemical workup CMP, CRP, LDH, CBC, ESR, LOIS comp, celiac, GAME, IgG subclasses, ANDRES without pertinent abnormality. ANDRES albumin H4.7, c-ANCA H1:40 MRCP 08.08.22 without acute/chronic abnormality. ? HIDA Scan 08.18.22 EF 85%; evidence of duodenal-gastric reflux. OV 09.22.22 reglan 5mg TID; Zenpep Biochemical workup PR3, amylase, lipase, gastrin, PR3, chromogranin A without pertinent abnormality. MPO H2714 Refer to rheumatology OV 12.22.22 BM vary between constipation with small or no BM for 1-2 days, loose stools several with frequency 4-5/day; formed stools can occur between these. Notes abdominal pain and blood in stool not r/t one type of consistency. ? Capsule endoscopy 01.02.23 noting mild blunted villi r/t celiac disease; Peyer patches, normal finding. No recommendations. OV 05.01.23 with ongoing tenesmus followed by loose stools (normal BM several times a week). Intermittent heartburn. Nausea occurs 1-2 days/week, she does not take PRN medication. Lower and RUQ abdominal pains occurring weekly. Bloating occurs regularly. She continues to be gluten free; diet is often cheese sticks and smoothies for lunch and homemade meals for dinner; often has a serving of vegetables for dinner. Primarily drinks water. Reports she had bloodwork with [facility] functional medicine who tested celiac which was negative; they are working her up for possible autoimmune components. [facility] experimental box tester was seen; Shanta reports that there were several labs that she reported as being high but the provider did not look into further and did not test for. Her LOIS comp was SS-B +. OV 10.16.23 continues with symptoms as noted in OV; notes resolution of blood in stool. She did see another experimental box tester who retested her bloodwork and felt that she needed to be monitored further as her bloodwork had not been consistent.??? ROS Const Constitutional: No anorexia, fatigue, fever(s), weight change or sleep problems Eyes Eyes: No change in vision ENT ENT: No abnormal hearing, difficulty swallowing, mouth lesions, tongue swelling or throat swelling Resp Respiratory: No cough or shortness of breath Cardio Cardiology: No chest pain at rest, chest pain with exertion, shortness of breath or dyspnea on exertion Gastro GI: No difficulty swallowing Genitourinary-Female: No difficulty urinating or burning urination Musc Musculoskeletal: No joint pain, joint swelling, muscle weakness or decreased muscle mass Skin Skin: No hair loss in leg, yellowing of the eye, itchy eyes, rash, skin ulcer or skin swelling Neuro Neurology: No abnormal hearing, abnormal movements, confusion, unsteady gait/balance or memory loss Psych Psychiatric: No anxiety, No confusion and No memory loss Endo Endocrine: No fatigue or weight change Aller/Imm Allergy/Immunologic: No itchy eyes, throat swelling or tongue swelling Norberto/Lymp Hematologic/Lymphatic: No easy bleeding, easy bruising or enlarged lymph nodes Exam Const General: cooperative and comfortable Nutritional Appearance: average body habitus and well nourished HENMT Head: normal to inspection Ears: hearing grossly normal bilaterally Nose: external nose normal Face and sinus: normal facial exam Mouth: oral mucosae normal Throat: posterior oropharynx normal Eyes General: appearance normal, both eyes and all related structures Neck Neck: normal visual inspection Chest Chest palpation & inspection: normal inspection of the chest and normal palpation of entire chest wall Resp Effort & Inspection: normal respiratory effort Auscultation: Bilateral: Clear to Auscultation Cardio Palpation: normal PMI Rate: regular rate Rhythm: regular rhythm GI Inspection: normal to inspection Auscultation: normal bowel sounds Percussion: normal to percussion Palpation: no hepatosplenomegaly Skin General: no rashes or lesions noted Neuro General: patient alert Extrem General: normal to inspection Psych Affect: normal affect Quality Reporting Tobacco Screening ([facility] 138) Smoking Status: Current every day smoker Assessment and Plan Assessment and Plan (1) Celiac disease: Status: Chronic Plan: Continues to be gluten-free and is not experiencing severe abdominal she did previously. Recommend to continue gluten-free diet. We will order a capsule study so we can evaluate her small bowel to see if her symptoms of diarrhea and lower GI bleeding possibly secondary to refractory celiac sprue. She did have an EGD and colonoscopy at the age of 15 and a EGD at the age of 20 for similar issues. But there was no determination of an etiology of her pain, diarrhea and intermittent lower GI bleeding. (2) Rectal bleed: Status: Chronic Plan: She is only had the rectal bleeding once afer being constipated. She had a colonoscopy and it was normal. (3) Nausea: Status: Inactive Plan: I think her nausea is multifactorial. She does have gastric reflux that I think is contributing to her nausea. I also think it could be a side effect something she is ingesting. I will give her Reglan 5 mg every morning and she will be pancreatic enzymes with each meal. We will put her on [facility]. (4) P-ANCA and MPO antibodies positive: Status: Chronic (5) Positive P-ANCA titer: Status: Inactive Plan: her myeloperoxidase antibody was really high and we sent her to rheumatology. Waiting on the rheumatology note to see if there is any association we will with an underlying rheumatologic disorder. (6) Elevated lipase: Status: Acute Plan: The differential diagnosis for her hyperlipasemia on occasion with the highest number that we have documented of her lipase being in the 400s would be pancreatitis, gastritis, duodenitis, refractory celiac disease. We may have to do subclasses of lipase. We will perform an upper and lower endoscopy to evaluate upper lower GI tract. She was explained alternatives, risk, benefits including outstanding bleeding, infection, sepsis, perforation, need for emergent urgent . She will have an ASA of 2. Orders: Orders EGD 10/24/23 K62.5 - Hemorrhage of anus and rectum, K90.0 - Celiac disease, R76.8 - Other specified abnormal immunological findings in serum Colonoscopy 10/24/23 K62.5 - Hemorrhage of anus and rectum, K90.0 - Celiac disease, R76.8 - Other specified abnormal immunological findings in serum Medications: Discontinued prednisone Discontinued Reason: Order Completed take two for 2 weeks then one for two weeks 42 tabs 0RF I have examined the patient and the H&P has been reviewed. There are no clinical changes since date of exam.
--- NOTE | 2023-10-24 13:00 | IMM_PTH ---
PATHOLOGY RESULTS PATIENT: NASIR WILKERSON LOC: EN U#:[id number] AGE/SX: 28/F ROOM: RE10/24/[address]: Dr. Geovanny Sharma DO : 1995 BED: DIS: 10/24/2023 SPEC #: [id number] RECD: 10/25/23 13:39 STATUS: MASHA REQ #: [id number] DIANNE: 10/24/23 13:[address]: Geovanny Sharma DEPT: IMMUNOHISTOCHEMISTRY RECD BY: Marlena Grayson ENTERED: 10/25/23 13:40 SP TYPE: IMMUNO OTHR DR: Dr. Jamaal Duarte MD Tissues: Stomach, NOS Procedures: H Pylori (initial) PHYSICIAN & INSTITUTION [place] [id number] SPECIMEN INFORMATION: Tissue Source: B - Antrum Clinical Info: Celiac disease, rectal bleed, nausea Specimen Number: [id number] CPT code: 98750 METHODOLOGY: Deparaffinized sections of prefer/formalin-fixed tissue or PAP/DQ stained slides are incubated with monoclonal/polyclonal antibodies/oligonucleotide probes. Localization is made via biotin free immunoperoxidase method. Appropriate controls are performed and reacted as expected. Results on target cell population are indicated in the following table: RESULTS: ANTIBODY / CLONE RESULT Block B H Pylori (polyclonal) negative These tests were developed and their performance characteristics determined by [facility]. They may not have been cleared or approved by the U.S. Food and Drug Administration. The FDA has determined that such clearance or approval is not necessary. The above immunohistochemical/dualISH markers are ordered and reviewed by the Pathologist. INTERPRETATION: B. Antrum, biopsy: Negative for Helicobacter pylori organisms. JARVIS:panchito 10/27/2023
--- NOTE | 2023-10-24 13:00 | EGD_PTH ---
PATHOLOGY RESULTS PATIENT: NASIR WILKERSON LOC: EN U#:[id number] AGE/SX: 28/F ROOM: RE10/24/[address]: Dr. Geovanny Sharma DO : 1995 BED: DIS: 10/24/2023 SPEC #: [id number] RECD: 10/24/23 14:34 STATUS: MASHA BOGGS #: [id number] DIANNE: 10/24/23 13:[address]: Geovanny Sharma DEPT: SURGICAL PATHOLOGY RECD BY: Latasha Marques ENTERED: 10/25/23 08:52 SP TYPE: EGD BIOPSY ROSENDO DR: Dr. Jamaal Duarte MD Tissues: Duodenum, NOS Gastric mucous membrane Ileum, NOS COLON BIOPSY Procedures: Surgery Specimen Level IV HEADER OPERATION: Colonoscopy, EGD, biopsy PRE-OP DIAGNOSIS: Celiac disease, rectal bleed, nausea TISSUE SUBMITTED: A - Duodenum biopsy, B - Antrum biopsy for H. pylori and path, C - Terminal ileum biopsy, D - Random colon biopsy MICROSCOPIC DIAGNOSIS A. Duodenum, biopsy: Fragments of small intestinal mucosa, no pathologic diagnosis. B. Antrum, biopsy: Minimal gastritis. See microscopic description and comment. C. Terminal ileum, biopsy: Fragments of small intestinal mucosa, no pathologic diagnosis. See comment. D. Colon, random biopsy: Fragments of colonic mucosa, no pathologic diagnosis. SJ:panchito 10/26/2023 COMMENT B. The results of immunohistochemistry for Helicobacter pylori will be reported separately ([id number]). C. Lymphoid aggregates are noted. MICROSCOPIC DESCRIPTION Slides are reviewed. B. The specimen shows fragments of gastric mucosa with chronic inflammatory cell infiltrates in the lamina propria consisting of lymphocytes and plasma cells, consistent with minimal chronic gastritis. GROSS DESCRIPTION A - Received in fixative is one container labeled with the patient's name and designated duodenum biopsy. The specimen consists of two irregular fragments of light webb soft tissue that in aggregate measure 1.0 x 0.3 x 0.1 cm. The specimen is totally submitted in one cassette. B - Received in fixative is one container labeled with the patient's name and designated antrum biopsy. The specimen consists of multiple irregular fragments of light webb soft tissue that in aggregate measure 0.8 x 0.5 x 0.1 cm. The specimen is totally submitted in one cassette. C - Received in fixative is one container labeled with the patient's name and designated terminal ileum biopsy. The specimen consists of multiple irregular fragments of light webb soft tissue that in aggregate measure 1.2 x 0.3 x 0.1 cm. The specimen is totally submitted in one cassette. D - Received in fixative is one container labeled with the patient's name and designated random colon biopsy. The specimen consists of multiple irregular fragments of light webb soft tissue that in aggregate measure 1.2 x 0.5 x 0.1 cm. The specimen is totally submitted in one cassette. / JARVIS:panchito 10/25/2023 TC: CPT: 48446 x4
--- NOTE | 2023-10-24 14:20 | OP.EGD_ITS ---
Patient Name: Shanta Maddox Procedure Date: 10/24/2023 1:47 PM Date of : 1995 Age: 28 Procedure: Upper GI endoscopy Indications: Epigastric abdominal pain Providers: Geovanny Sharma DO Medicines: Monitored Anesthesia Care Patient Profile: This is a 28 year old female. Refer to note in patient chart for documentation of history and physical. Patient has symptoms of chronic abdominal cramping and chronic epigastric abdominal pain. Complications: No immediate complications. Procedure: Pre-Anesthesia Assessment: - Prior to the procedure, a History and Physical was performed, and patient medications and allergies were reviewed. The risks and benefits of the procedure and the sedation options and risks were discussed with the patient. All questions were answered and informed consent was obtained. Patient identification and proposed procedure were verified by the physician. Mental Status Examination: normal. CV Examination: normal. Prophylactic Antibiotics: The patient does not require prophylactic antibiotics. Prior Anticoagulants: The patient has taken no anticoagulant or antiplatelet agents. ASA Grade Assessment: II - A patient with mild systemic disease. After reviewing the risks and benefits, the patient was deemed in satisfactory condition to undergo the procedure. The anesthesia plan was to use monitored anesthesia care (MAC). Immediately prior to administration of medications, the patient was re-assessed for adequacy to receive sedatives. The heart rate, respiratory rate, oxygen saturations, blood pressure, adequacy of pulmonary ventilation, and response to care were monitored throughout the procedure. The physical status of the patient was re-assessed after the procedure. After obtaining informed consent, the endoscope was passed under direct vision. Throughout the procedure, the patient's blood pressure, pulse, and oxygen saturations were monitored continuously. The pediatric colonoscope was introduced through the mouth, and advanced to the second part of duodenum. The upper GI endoscopy was accomplished without difficulty. The patient tolerated the procedure well. Scope In: 1:57:29 PM Scope Out: 2:00:41 PM Total Procedure Duration Time 0 hours 3 minutes 12 seconds Findings: The examined esophagus was normal. Patchy mildly erythematous mucosa without bleeding was found in the gastric antrum. Biopsies were taken with a cold forceps for histology. Verification of patient identification for the specimen was done. Biopsies were taken with a cold forceps for Helicobacter pylori testing. Verification of patient identification for the specimen was done. Estimated blood loss was minimal. The second portion of the duodenum was normal. Biopsies were taken with a cold forceps for histology. Verification of patient identification for the specimen was done. Estimated blood loss was minimal. Impression: - Normal esophagus. - Erythematous mucosa in the antrum. Biopsied. - Normal second portion of the duodenum. Biopsied. Recommendation: - Discharge patient to home. - Resume previous diet. - Continue present medications. - Await pathology results. Procedure Code(s): --- Professional --- 48793, Esophagogastroduodenoscopy, flexible, transoral; with biopsy, single or multiple CPT copyright 2021 [employer]. All rights reserved. The codes documented in this report are preliminary and upon janitorial maintenance worker review may be revised to meet current compliance requirements. Geovanny Sharma DO 10/24/2023 2:19:54 PM This report has been signed electronically. Number of Addenda: 0 Note Initiated On: 10/24/2023 1:47 PM
--- NOTE | 2023-10-24 14:20 | OP.CCLET_ITS ---
10/24/2023 Jamaal Duarte [address] [place] [address] Re : Upper GI endoscopy procedure for Shanta Maddox Dear Dr. Duarte This procedure was performed on Tuesday, October 24, 2023. My impressions and recommendations are as follows: Impressions : - Normal esophagus. - Erythematous mucosa in the antrum. Biopsied. - Normal second portion of the duodenum. Biopsied. Recommendations : - Discharge patient to home. - Resume previous diet. - Continue present medications. - Await pathology results. My findings are described in the full procedure note, which is enclosed. If I can be of further assistance, please feel free to contact me at . Sincerely, Geovanny Sharma, 10/24/2023 2:19:54 PM This report has been signed electronically.
--- NOTE | 2023-10-24 14:24 | OP.CCLET_ITS ---
10/24/2023 Jamaal Duarte [address] [place] [address] Re : Colonoscopy procedure for Shanta Maddox Dear Dr. Duarte This procedure was performed on Tuesday, October 24, 2023. My impressions and recommendations are as follows: Impressions : - Congested mucosa in the rectum, in the sigmoid colon and in the ascending colon. Biopsied. - Mild inflammation was found in the ileum secondary to ileitis. Biopsied. Recommendations : - Discharge patient to home. - Resume previous diet. - Continue present medications. - Await pathology results. - Repeat colonoscopy is recommended for surveillance. The colonoscopy date will be determined after pathology results from today's exam become available for review. My findings are described in the full procedure note, which is enclosed. If I can be of further assistance, please feel free to contact me at . Sincerely, Geovanny Friend, 10/24/2023 2:23:46 PM This report has been signed electronically.
--- NOTE | 2023-10-24 14:24 | OP.COLON_ITS ---
Patient Name: Shanta Maddox Procedure Date: 10/24/2023 2:01 PM Date of : 1995 Age: 28 Procedure: Colonoscopy Indications: Clinically significant diarrhea of unexplained origin Providers: Geovanny Sharma DO Medicines: Monitored Anesthesia Care Patient Profile: This is a 28 year old female. Refer to note in patient chart for documentation of history and physical. Patient has symptoms of chronic abdominal cramping and chronic epigastric abdominal pain. Refer to note in patient chart for documentation of history and physical. Last Colonoscopy: none. The patient's first colonoscopy is today. Complications: No immediate complications. Procedure: Pre-Anesthesia Assessment: - Prior to the procedure, a History and Physical was performed, and patient medications and allergies were reviewed. The risks and benefits of the procedure and the sedation options and risks were discussed with the patient. All questions were answered and informed consent was obtained. Patient identification and proposed procedure were verified by the physician. Mental Status Examination: normal. CV Examination: normal. Prophylactic Antibiotics: The patient does not require prophylactic antibiotics. Prior Anticoagulants: The patient has taken no anticoagulant or antiplatelet agents. ASA Grade Assessment: II - A patient with mild systemic disease. After reviewing the risks and benefits, the patient was deemed in satisfactory condition to undergo the procedure. The anesthesia plan was to use monitored anesthesia care (MAC). Immediately prior to administration of medications, the patient was re-assessed for adequacy to receive sedatives. The heart rate, respiratory rate, oxygen saturations, blood pressure, adequacy of pulmonary ventilation, and response to care were monitored throughout the procedure. The physical status of the patient was re-assessed after the procedure. After I obtained informed consent, the scope was passed under direct vision. Throughout the procedure, the patient's blood pressure, pulse, and oxygen saturations were monitored continuously. The pediatric colonoscope was introduced through the anus and advanced to the terminal ileum. The colonoscopy was performed without difficulty. The patient tolerated the procedure well. The quality of the bowel preparation was adequate. The terminal ileum, ileocecal valve, appendiceal orifice, and rectum were photographed. Scope In: 2:02:27 PM Scope Withdrawal Time 0 hours 6 minutes 37 seconds Scope Out: 2:12:42 PM Total Procedure Duration Time 0 hours 10 minutes 15 seconds Findings: An area of mildly congested mucosa was found in the rectum, in the sigmoid colon and in the ascending colon. Biopsies were taken with a cold forceps for histology. Verification of patient identification for the specimen was done. Estimated blood loss was minimal. Localized mild inflammation characterized by erosions was found in the terminal ileum. Biopsies were taken with a cold forceps for histology. Verification of patient identification for the specimen was done. Estimated blood loss was minimal. Impression: - Congested mucosa in the rectum, in the sigmoid colon and in the ascending colon. Biopsied. - Mild inflammation was found in the ileum secondary to ileitis. Biopsied. Recommendation: - Discharge patient to home. - Resume previous diet. - Continue present medications. - Await pathology results. - Repeat colonoscopy is recommended for surveillance. The colonoscopy date will be determined after pathology results from today's exam become available for review. Procedure Code(s): --- Professional --- 39155, Colonoscopy, flexible; with biopsy, single or multiple CPT copyright 2021 [employer]. All rights reserved. The codes documented in this report are preliminary and upon coppersmith apprentice review may be revised to meet current compliance requirements. Geovanny Sharma DO 10/24/2023 2:23:46 PM This report has been signed electronically. Number of Addenda: 0 Note Initiated On: 10/24/2023 2:01 PM
== END 2023-10-24 15:06 | disposition home or self-care (01) ==
LOC: EN 12:07 → AC 12:08
PROVIDERS: Anesthesiology; PCP Family Medicine; Referring Provider Family Medicine; Visit Provider Internal Medicine Gastroenterology
PROC: 0DJD8ZZ Inspection of Lower Intestinal Tract, Via Natural or Artificial Opening Endoscopic (ICD-10-PCS; CPT 45378; principal; 2023-10-24 12:55)
DX: K29.70 Gastritis, unspecified, without bleeding (principal); K90.0 Celiac disease; R74.8 Abnormal levels of other serum enzymes; I47.10 Supraventricular tachycardia, unspecified; F17.200 Nicotine dependence, unspecified, uncomplicated; Z79.899 Other long term (current) drug therapy
CPT/HCPCS: 43239; 45380; 81025; 88305; 88342; J7120; J2405

== ENCOUNTER → 2024-01-11 | Outpatient (CLI) | payer MEDICAID, SELFPAY ==
[2024-01-11 18:12] LABS: Erythrocyte Sedimentation Rate 4 mm/hr (0-30)
[2024-01-11 18:36] LABS: ALB/GLOB Ratio 1.4 RATIO (0.9-2.4); AST(SGOT) 14 U/L (15-37); Alanine Aminotransfer ALT/SGPT 24 U/L (13-56); Albumin, Serum 4.7 g/dL (3.2-5.0); Alkaline Phosphatase 64 U/L (45-117); Anion Gap 4 (5-15); BUN 8 mg/dL (7-18); BUN/Creat Ratio 9.8 RATIO (10-20); CRP < 2.90 mg/L (0.0-3.0); Calcium,Total 9.2 mg/dL (8.5-10.1); Chloride 115 mmol/L (98-107); Creatinine, Serum 0.82 mg/dL (0.55-1.02); EST Glomerular Filtration Rate 89 mL/min (>60); Est Glom Filt Rate - Afr Amer 108 mL/min (>60); Globulin 3.3 g/dL (2.2-4.2); Glucose 81 mg/dL (74-106); Lipase 123 U/L (13-75); Magnesium 2.3 mg/dL (1.6-2.6); Potassium 3.4 mmol/L (3.5-5.1); Sodium Level 141 mmol/L (136-145)
== END | disposition home or self-care (01) ==
LOC: MFPLAB 16:35
PROVIDERS: PCP Family Medicine; Visit Provider Family Medicine
DX: K52.832 Lymphocytic colitis (principal)
CPT/HCPCS: 36415; 80053; 83690; 83735; 85652; 86140

== ENCOUNTER → 2024-01-15 | Outpatient (CLI) | payer MEDICAID, SELFPAY ==
[2024-01-15 13:20] LABS: ALB/GLOB Ratio 1.2 RATIO (0.9-2.4); AST(SGOT) 20 U/L (15-37); Alanine Aminotransfer ALT/SGPT 25 U/L (13-56); Albumin, Serum 4.1 g/dL (3.2-5.0); Alkaline Phosphatase 58 U/L (45-117); Anion Gap 9 (5-15); BUN 7 mg/dL (7-18); BUN/Creat Ratio 7.2 RATIO (10-20); Calcium,Total 8.9 mg/dL (8.5-10.1); Chloride 115 mmol/L (98-107); Creatinine, Serum 0.97 mg/dL (0.55-1.02); EST Glomerular Filtration Rate 73 mL/min (>60); Est Glom Filt Rate - Afr Amer 89 mL/min (>60); Globulin 3.3 g/dL (2.2-4.2); Glucose 120 mg/dL (74-106); Potassium 3.3 mmol/L (3.5-5.1); Protein, Total 7.4 g/dL (6.4-8.2); Sodium Level 142 mmol/L (136-145)
[2024-01-15 16:03] LABS: GGTP 25 U/L (5-55)
[2024-01-16 13:28] LABS: Lipase 91 U/L (13-75)
== END | disposition home or self-care (01) ==
LOC: MFPLAB 10:49
PROVIDERS: PCP Family Medicine; Visit Provider Family Medicine
DX: K85.90 Acute pancreatitis without necrosis or infection, unspecified (principal); R10.13 Epigastric pain; R19.7 Diarrhea, unspecified; K52.832 Lymphocytic colitis
CPT/HCPCS: 36415; 80053; 82977; 83690; 87493; 87506

== ENCOUNTER → 2024-01-26 | Outpatient (CLI) | payer MEDICAID, SELFPAY ==
[2024-01-26 18:09] LABS: ALB/GLOB Ratio 1.3 RATIO (0.9-2.4); AST(SGOT) 15 U/L (15-37); Alanine Aminotransfer ALT/SGPT 18 U/L (13-56); Albumin, Serum 4.2 g/dL (3.2-5.0); Alkaline Phosphatase 58 U/L (45-117); Anion Gap 7 (5-15); BUN 8 mg/dL (7-18); BUN/Creat Ratio 9.4 RATIO (10-20); Calcium,Total 9.2 mg/dL (8.5-10.1); Chloride 113 mmol/L (98-107); Creatinine, Serum 0.85 mg/dL (0.55-1.02); EST Glomerular Filtration Rate 86 mL/min (>60); Est Glom Filt Rate - Afr Amer 104 mL/min (>60); Globulin 3.3 g/dL (2.2-4.2); Glucose 88 mg/dL (74-106); Lipase 139 U/L (13-75); Magnesium 2.3 mg/dL (1.6-2.6); Potassium 3.1 mmol/L (3.5-5.1); Protein, Total 7.5 g/dL (6.4-8.2); Sodium Level 142 mmol/L (136-145)
== END | disposition home or self-care (01) ==
LOC: MFPLAB 17:02
PROVIDERS: PCP Family Medicine; Visit Provider Family Medicine
DX: R10.84 Generalized abdominal pain (principal)
CPT/HCPCS: 36415; 80053; 83690; 83735

== ENCOUNTER → 2024-01-30 | Outpatient (CLI) | payer MEDICAID, SELFPAY ==
--- NOTE | 2024-01-30 08:05 | CT_ITS ---
STUDY: CT ABDOMEN AND PELVIS WITH CONTRAST REASON FOR EXAM: Female, 28 years old. Upper abdominal pain and diarrhea for one month. Elevated lipase. RADIATION DOSAGE (If Supplied By Facility): CTDIvol = ( 15.03 ) mGy, DLP = ( 336.47 ) mGycm TECHNIQUE: Transaxial images were obtained from the dome of the diaphragm to the symphysis pubis with oral contrast. Oral and amp; IV Readi-CAT and amp; 75mL Isovue-300 was administered. Sagittal and coronal images were reconstructed. Individualized dose optimization techniques were used for this CT. COMPARISON: Comparison is made with prior study dated May 06, 2021. FINDINGS: The visualized lung bases are unremarkable. The visualized portions of the heart are within normal limits. Normal liver. Normal gallbladder and extrahepatic biliary system. Normal spleen. Normal pancreas. Normal bilateral adrenal glands. Normal right kidney. Normal left kidney. Normal visualized stomach. Normal small intestine. Normal colon. The appendix is visualized and appears normal. Normal abdominal aorta. Normal inferior vena cava. Normal retroperitoneum. Normal urinary bladder. Normal abdominal wall. Normal osseous structures. CT/Abdomen/Pelvis WITH Contrast IMPRESSION: Normal enhanced CT of the abdomen and pelvis. Electronically Signed: Cesar Morales MD at 11:12 EDT ,
== END | disposition home or self-care (01) ==
LOC: CT 08:03
PROVIDERS: PCP Family Medicine; Referring Provider Internal Medicine Gastroenterology; Visit Provider Internal Medicine Gastroenterology
DX: R19.7 Diarrhea, unspecified (principal); R10.9 Unspecified abdominal pain
CPT/HCPCS: 74177; Q9967; A4216

== ENCOUNTER → 2024-02-13 | Outpatient (CLI) | payer MEDICAID, SELFPAY ==
[2024-02-13 16:08] LABS: ALB/GLOB Ratio 1.3 RATIO (0.9-2.4); AST(SGOT) 16 U/L (15-37); Alanine Aminotransfer ALT/SGPT 22 U/L (13-56); Albumin, Serum 4.3 g/dL (3.2-5.0); Alkaline Phosphatase 56 U/L (45-117); Amylase 88 U/L (25-115); Anion Gap 7 (5-15); BUN 10 mg/dL (7-18); BUN/Creat Ratio 13.5 RATIO (10-20); CRP < 2.90 mg/L (0.0-3.0); Calcium,Total 9.4 mg/dL (8.5-10.1); Chloride 112 mmol/L (98-107); Creatinine, Serum 0.74 mg/dL (0.55-1.02); EST Glomerular Filtration Rate 100 mL/min (>60); Est Glom Filt Rate - Afr Amer 121 mL/min (>60); Globulin 3.4 g/dL (2.2-4.2); Glucose 74 mg/dL (74-106); Lipase 103 U/L (13-75); Potassium 3.8 mmol/L (3.5-5.1); Protein, Total 7.7 g/dL (6.4-8.2); Sodium Level 140 mmol/L (136-145)
== END | disposition home or self-care (01) ==
LOC: MFPLAB 11:39
PROVIDERS: PCP Family Medicine; Visit Provider Family Medicine
DX: K86.1 Other chronic pancreatitis (principal)
CPT/HCPCS: 36415; 80053; 82150; 83690; 86140

== ENCOUNTER → 2024-03-08 | Outpatient (CLI) | payer MEDICAID, SELFPAY | END | disposition home or self-care (01) | PROVIDERS: PCP Family Medicine; Referring Provider Internal Medicine Gastroenterology; Visit Provider Internal Medicine Gastroenterology | DX: K90.0 Celiac disease (principal); K85.90 Acute pancreatitis without necrosis or infection, unspecified | CPT/HCPCS: 36415 ==

== ENCOUNTER → 2024-05-14 | Outpatient (CLI) | payer MEDICAID, SELFPAY ==
[2024-05-21 01:07] LABS: Alternaria tenuis <0.10 kU/L (Class 0); Ash, White <0.10 kU/L (Class 0); Aspergillus fumigatus <0.10 kU/L (Class 0); Beef <0.10 kU/L (Class 0); Bermuda Grass <0.10 kU/L (Class 0); Birch <0.10 kU/L (Class 0); Black Walnut <0.10 kU/L (Class 0); Cat Hair / Dander,Stand <0.10 kU/L (Class 0); Cedar, Mountain <0.10 kU/L (Class 0); Chocolate <0.10 kU/L (Class 0); Cladosporium herbarum <0.10 kU/L (Class 0); Cockroach, American <0.10 kU/L (Class 0); Codfish <0.10 kU/L (Class 0); Corn <0.10 kU/L (Class 0); Cottonwood <0.10 kU/L (Class 0); D farinae Mite <0.10 kU/L (Class 0); D pteronyssinus <0.10 kU/L (Class 0); Dog Epithelia <0.10 kU/L (Class 0); Egg, Whole <0.10 kU/L (Class 0); Elm, American White <0.10 kU/L (Class 0); Immunoglobulin E 33 IU/mL (6-495); Maple/Box Elder <0.10 kU/L (Class 0); Milk (Cow) <0.10 kU/L (Class 0); Mouse Urine <0.10 kU/L (Class 0); Mulberry, White <0.10 kU/L (Class 0); Mussels <0.10 kU/L (Class 0); Oak, White <0.10 kU/L (Class 0); Peanut <0.10 kU/L (Class 0); Pecan <0.10 kU/L (Class 0); Penicillium Notatum <0.10 kU/L (Class 0); Pigweed, Rough <0.10 kU/L (Class 0); Pork <0.10 kU/L (Class 0); Ragweed, Short/Common <0.10 kU/L (Class 0); Russian Thistle <0.10 kU/L (Class 0); Salmon <0.10 kU/L (Class 0); Sheep Sorrel <0.10 kU/L (Class 0); Shrimp <0.10 kU/L (Class 0); Soybean <0.10 kU/L (Class 0); Sycamore, American <0.10 kU/L (Class 0); Timothy Grass <0.10 kU/L (Class 0); Tuna <0.10 kU/L (Class 0); Wheat <0.10 kU/L (Class 0)
== END | disposition home or self-care (01) ==
LOC: MFPLAB 13:53
PROVIDERS: PCP Family Medicine; Visit Provider Family Medicine
DX: R10.84 Generalized abdominal pain (principal); R21 Rash and other nonspecific skin eruption; L71.9 Rosacea, unspecified
CPT/HCPCS: 36415; 82785; 86003; 86005

== ENCOUNTER → 2024-08-12 | Outpatient (CLI) | payer MEDICAID, SELFPAY ==
[2024-08-12 15:19] LABS: Erythrocyte Sedimentation Rate 2 mm/hr (0-30)
[2024-08-12 15:30] LABS: ALB/GLOB Ratio 1.2 RATIO (0.9-2.4); AST(SGOT) 15 U/L (15-37); Alanine Aminotransfer ALT/SGPT 25 U/L (13-56); Albumin, Serum 4.4 g/dL (3.2-5.0); Alkaline Phosphatase 57 U/L (45-117); Anion Gap 9 (5-15); BUN 9 mg/dL (7-18); BUN/Creat Ratio 11.6 RATIO (10-20); CRP < 2.90 mg/L (0.0-3.0); Calcium,Total 9.4 mg/dL (8.5-10.1); Chloride 106 mmol/L (98-107); Creatinine, Serum 0.78 mg/dL (0.55-1.02); EST Glomerular Filtration Rate 94 mL/min (>60); Est Glom Filt Rate - Afr Amer 114 mL/min (>60); Globulin 3.6 g/dL (2.2-4.2); Glucose 79 mg/dL (74-106); Lipase 129 U/L (13-75); Sodium Level 139 mmol/L (136-145)
[2024-08-15 09:09] LABS: Anti-Centromere B Ab <0.2 AI (0.0-0.9); Anti-Chromatin <0.2 AI (0.0-0.9); Anti-Jo <0.2 AI (0.0-0.9); Anti-Nuclear Antibody Test Negative (.); Anti-Scleroderma-70 AB <0.2 AI (0.0-0.9); Anti-dsDNA Ab <1 IU/mL (0-9); RNP Ab <0.2 AI (0.0-0.9); SJOGREN'S Anti-SS-A test < 0.2 AI (0.0-0.9); SJOGREN'S Anti-SS-B test 0.8 AI (0.0-0.9); Smith Ab <0.2 AI (0.0-0.9)
== END | disposition home or self-care (01) ==
PROVIDERS: PCP Family Medicine; Visit Provider Family Medicine
DX: M35.00 Sjogren syndrome, unspecified (principal); R10.84 Generalized abdominal pain
CPT/HCPCS: 36415; 80053; 83690; 85652; 86038; 86140; 86225; 86235

== ENCOUNTER → 2024-09-13 | Outpatient (CLI) | payer MEDICAID, SELFPAY ==
[2024-09-13 12:15] LABS: Color, Urine Yellow (Yellow); Glucose, Dipstick Normal (Normal); Ketone-Dipstick Negative (Negative); Leukocyte Esterase-Dipstick 100 /ul (Negative); Nitrite-Dipstick Negative (Negative); Occult Blood-Urine Negative /ul (Negative); Protein-Dipstick Negative (Negative); Urine Bilirubin Dipstick Negative (Negative); Urine Clarity Sl. Cloudy (Clear); Urine Urobilinogen Normal (Normal)
[2024-09-13 12:16] LABS: Erythrocyte Sedimentation Rate 7 mm/hr (0-30)
[2024-09-13 12:16] LABS: Erythrocyte Sedimentation Rate 9 mm/hr (0-30)
[2024-09-13 12:18] LABS: Absolute Lymphocyte Count 2.02 X10^3/uL (0.83-4.51); Absolute Neutrophil Count 3.7 X10^3/uL (2.0-7.7); Basophil# 0.05 X10^3/uL; Basophil% 0.8 % (0-1); Eosinophil# 0.04 X10^3/uL; Eosinophils% 0.7 % (0-5); Hematocrit 41.8 % (37-47); Hemoglobin 14.2 g/dL (12.0-15.0); Lymphocyte # 2.02 X10^3/ul (0.83-4.51); Mean Corpuscular Hgb 30.4 pg (27.0-32.0); Mean Corpuscular Volume 89.5 fL (81-99); Mean Platelet Vol. 8.9 fl (6.2-12.0); Monocyte# 0.28 X10^3/uL; Monocyte% 4.6 % (0-10); NRBC Flagged by Analyzer 0 % (0-5); Neutrophil # 3.72 X10^3/uL (2.7-7.7); Neutrophil % 60.6 % (47-70); Platelet Count 378 K/mm3 (150-450); RBC Distribution Width CV 12.3 % (11.6-14.6); RBC Distribution Width SD 40.4 fl (35.1-43.9); Red Blood Count 4.67 M/mm3 (4.2-5.4); White Blood Count 6.1 K/mm3 (4.4-11.0)
[2024-09-13 12:44] LABS: Lipase 92 U/L (13-75)
[2024-09-13 12:53] LABS: CPK Total, Creatine Kinase 97 U/L (26-192); CRP < 2.90 mg/L (0.0-3.0); Creatinine, Serum 0.75 mg/dL (0.55-1.02); EST Glomerular Filtration Rate 98 mL/min (>60); Est Glom Filt Rate - Afr Amer 119 mL/min (>60); Rheumatoid Factor < 10.0 IU/mL (<15)
[2024-09-16 09:22] LABS: CCP IgG Antibodies 3 units (0-19); Complement C3 156 mg/dL (82-167)
[2024-09-16 17:07] LABS: CMV Acute Antibody IgM < 30.0 AU/mL (0.0-29.9); CMV Antibody IgG < 0.60 U/mL (0.00-0.59); EBV Acute VCA IgM < 36.0 U/mL (0.0-35.9); EBV-VCA IgG > 600.0 U/mL (0.0-17.9)
[2024-09-16 18:07] LABS: Anti-Centromere B Ab <0.2 AI (0.0-0.9); Anti-Jo <0.2 AI (0.0-0.9); Anti-Nuclear Antibody Test Negative (.); Anti-Scleroderma-70 AB <0.2 AI (0.0-0.9); Anti-dsDNA Ab <1 IU/mL (0-9); RNP Ab <0.2 AI (0.0-0.9); Smith Ab <0.2 AI (0.0-0.9)
== END | disposition home or self-care (01) ==
LOC: LAB 11:15
PROVIDERS: Internal Medicine Gastroenterology; PCP Family Medicine
DX: K85.90 Acute pancreatitis without necrosis or infection, unspecified (principal); M35.9 Systemic involvement of connective tissue, unspecified; F17.290 Nicotine dependence, other tobacco product, uncomplicated
CPT/HCPCS: 36415; 81002; 82550; 82565; 83690; 85025; 85652; 86038; 86140; 86160; 86200; 86225; 86235; 86431; 86644; 86645; 86664; 86665; 87086

== ENCOUNTER → 2024-11-25 | Outpatient (CLI) | payer MEDICAID, SELFPAY ==
--- NOTE | 2024-11-25 08:58 | RAD_ITS ---
PROCEDURE: CHEST PA AND LATERAL TECHNIQUE: Single frontal image including the chest and abdomen. COMPARISON: None. FINDINGS: The cardiothymic contour is normal. The lungs are clear. Bowel gas pattern is normal. No evidence of bowel obstruction or free air. The bones are unremarkable. No radiopaque foreign body is identified. RAD/Chest PA and Lateral IMPRESSION: UNREMARKABLE SINGLE VIEW OF THE CHEST AND ABDOMEN. Reading [facility]
== END | disposition home or self-care (01) ==
LOC: MTRAD 08:58
PROVIDERS: PCP Family Medicine; Referring Provider Family Medicine; Visit Provider Family Medicine
DX: R06.02 Shortness of breath (principal); R05.9 Cough, unspecified; R00.2 Palpitations
CPT/HCPCS: 71046

== ENCOUNTER → 2024-12-02 | Outpatient (CLI) | payer MEDICAID, SELFPAY | END | disposition home or self-care (01) | LOC: PSN 10:48 | PROVIDERS: PCP Family Medicine; Referring Provider Family Medicine; Visit Provider Family Medicine | DX: R06.02 Shortness of breath (principal) | CPT/HCPCS: 94060; 94726; 94729 ==

== ENCOUNTER → 2024-12-10 | Outpatient (CLI) | payer MEDICAID, SELFPAY ==
[2024-12-10 12:53] LABS: Erythrocyte Sedimentation Rate < 1 mm/hr (0-30)
[2024-12-10 14:08] LABS: CRP < 3.00 mg/L (0.0-3.0); Lipase 77 U/L (13-75)
[2024-12-10 14:23] LABS: Amylase 95 U/L (28-100)
== END | disposition home or self-care (01) ==
LOC: LAB 12:25
PROVIDERS: PCP Family Medicine; Referring Provider Internal Medicine Gastroenterology; Visit Provider Internal Medicine Gastroenterology
DX: K85.90 Acute pancreatitis without necrosis or infection, unspecified (principal); R74.8 Abnormal levels of other serum enzymes; R19.7 Diarrhea, unspecified
CPT/HCPCS: 36415; 82150; 83690; 85652; 86140

== ENCOUNTER → 2025-03-13 | Outpatient (CLI) | payer MEDICAID, SELFPAY ==
[2025-03-13 12:47] LABS: ALB/GLOB Ratio 1.8 RATIO (0.9-2.4); AST(SGOT) 18 U/L (<=31); Alanine Aminotransfer ALT/SGPT 10 U/L (<=34); Albumin, Serum 4.6 g/dL (3.5-5.0); Alkaline Phosphatase 54 U/L (35-104); Anion Gap 12 (5-15); BUN 13 mg/dL (4-19); BUN/Creat Ratio 15.4 RATIO (10-20); Calcium,Total 9.5 mg/dL (7.6-11.0); Carbon Dioxide 22.5 mmol/L (21.0-32.0); Chloride 106 mmol/L (98-108); Creatinine, Serum 0.81 mg/dL (0.70-1.20); EST Glomerular Filtration Rate 102 (>60); Globulin 2.5 g/dL (2.2-4.2); Glucose 88 mg/dL (70-99); Potassium 4.6 mmol/L (3.3-5.1); Sodium Level 141 mmol/L (133-145); Total Bilirubin 0.36 mg/dL (0.00-1.30)
[2025-03-13 13:04] LABS: Lipase 83 U/L (13-75); Magnesium 2.3 mg/dL (1.5-2.2)
[2025-03-13 13:18] LABS: Amylase 95 U/L (28-100)
== END | disposition home or self-care (01) ==
LOC: MFPLAB 10:18
PROVIDERS: PCP Family Medicine
DX: M79.89 Other specified soft tissue disorders (principal); K86.1 Other chronic pancreatitis
CPT/HCPCS: 36415; 80053; 82150; 83690; 83735

== ENCOUNTER → 2025-03-24 | Outpatient (CLI) | payer MEDICAID, SELFPAY ==
[2025-03-24 15:13] LABS: Absolute Lymphocyte Count 2.05 X10^3/uL (0.83-4.51); Absolute Neutrophil Count 3.4 X10^3/uL (2.0-7.7); Basophil# 0.04 X10^3/uL; Basophil% 0.7 % (0-1); Eosinophil# 0.07 X10^3/uL; Eosinophils% 1.2 % (0-5); Hematocrit 41.8 % (37-47); Hemoglobin 13.7 g/dL (12.0-15.0); Lymphocyte # 2.05 X10^3/ul (0.83-4.51); Lymphocyte % 34.5 % (19-41); Mean Corp Hgb Conc 32.8 g/dL (32-36); Mean Corpuscular Hgb 30.9 pg (27.0-32.0); Mean Corpuscular Volume 94.4 fL (81-99); Mean Platelet Vol. 9.5 fl (6.2-12.0); Monocyte# 0.33 X10^3/uL; Monocyte% 5.5 % (0-10); NRBC Flagged by Analyzer 0 % (0-5); Neutrophil # 3.44 X10^3/uL (2.7-7.7); Neutrophil % 57.8 % (47-70); Platelet Count 323 K/mm3 (150-450); RBC Distribution Width CV 12.4 % (11.6-14.6); RBC Distribution Width SD 43.7 fl (35.1-43.9); Red Blood Count 4.43 M/mm3 (4.2-5.4)
[2025-03-24 16:06] LABS: ALB/GLOB Ratio 1.7 RATIO (0.9-2.4); AST(SGOT) 20 U/L (<=31); Alanine Aminotransfer ALT/SGPT 11 U/L (<=34); Albumin, Serum 4.8 g/dL (3.5-5.0); Alkaline Phosphatase 58 U/L (35-104); Anion Gap 13 (5-15); BUN 9 mg/dL (4-19); BUN/Creat Ratio 11.5 RATIO (10-20); Calcium,Total 9.7 mg/dL (7.6-11.0); Carbon Dioxide 21.3 mmol/L (21.0-32.0); Chloride 105 mmol/L (98-108); EST Glomerular Filtration Rate 104 (>60); Ferritin 58 ng/mL (22-378); Globulin 2.8 g/dL (2.2-4.2); Glucose 75 mg/dL (70-99); Hepatitis C Antibody Nonreactive (Nonreactive); Lipase 90 U/L (13-75); Potassium 4.5 mmol/L (3.3-5.1); Protein, Total 7.6 g/dL (5.9-8.4); Sodium Level 139 mmol/L (133-145); Syphilis Antibodies Nonreactive (Nonreactive); Total Bilirubin 0.44 mg/dL (0.00-1.30); Vitamin B12 592 pg/mL (180-914)
[2025-03-24 16:10] LABS: FOLATES,SERUM (FOLIC ACID) 7.85 ng/mL (4.60-34.80)
[2025-03-24 16:20] LABS: Hemoglobin A1c 4.9 % (<=5.6)
== END | disposition home or self-care (01) ==
LOC: MFPLAB 11:31
PROVIDERS: PCP Family Medicine; Visit Provider Family Medicine
DX: M79.606 Pain in leg, unspecified (principal); K85.90 Acute pancreatitis without necrosis or infection, unspecified
CPT/HCPCS: 36415; 80053; 82607; 82728; 82746; 83036; 83690; 85025; 86780; 86803